=== PATIENT | male | born 1950 | race Hispanic/Latino ===

== ENCOUNTER 2016-12-03 02:07 | Observation (INO) | payer MEDICARE, OTHER ==
[2016-12-03 02:09] VITALS: BMI 34.9
--- NOTE | 2016-12-03 02:39 | ED PDOC ---
Arrival/HPI <Cedric Bourne - Last Filed: 12/03/16 03:34> - General Historian: Patient - History of Present Illness Time/Duration: 24 hours Symptom Onset: Sudden Symptom Course: Unchanged Quality: Stabbing <Merna Jiang - Last Filed: 12/03/16 03:42> - General Chief Complaint: Chest Pain Time Seen by Provider: 12/03/16 02:08 - History of Present Illness Narrative History of Present Illness (Text): 12/03/16 02:35 66 year old male with past medical history of CAD s/p stents, Diabetes, CKD presents for chest pain that began about 7 hours ago. Pain is located on right side of chest and radiates to right neck and RUQ. Pain is sharp in nature and constant. No association with position. Patient states that he took Aspirin 81 mg before coming to hospital. Patient also complaining of dry cough for past few days. Denies having any F/C, V/n, SOB. Patient also complaining of increased urinary frequency. (Merna Jiang) Past Medical History - Provider Review Nursing Documentation Reviewed: Yes - Infectious Disease Hx of Infectious Diseases: None - Tetanus Immunization Tetanus Immunization: Up to Date - Cardiac Hx Cardiac Disorders: Yes (CAD) Hx Circulatory Problems: Yes Hx Congestive Heart Failure: Yes Hx Hypertension: Yes Hx Pacemaker: No Hx Peripheral Vascular Disease: Yes Other/Comment: Stents x 6 in the heart. - Pulmonary Hx Respiratory Disorders: Yes Hx Chronic Obstructive Pulmonary Disease (COPD): Yes Hx Pneumonia: Yes - Neurological Hx Neurological Disorder: No - HEENT Hx HEENT Disorder: Yes (BLURRY VISION TO LEFT EYE) Hx Cataracts: Yes (Right eye) - Renal Hx Renal Disorder: Yes Hx Renal Failure: Yes - Endocrine/Metabolic Hx Endocrine Disorders: Yes Hx Diabetes Mellitus Type 2: Yes - Hematological/Oncological Hx Blood Disorders: Yes Other/Comment: hx mrsa - Integumentary Hx Dermatological Disorder: Yes (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.ALL TOES L.RIGHT 3 TOES.) Other/Comment: left foot ulcer on ball of foot and outer left calf open wound 3cm x 1cm open wound purulent dng noted(PT. STATES IT IS HEALED) - Musculoskeletal/Rheumatological Hx Falls: No - Gastrointestinal Hx Gastrointestinal Disorders: Yes Hx Gall Bladder Disease: Yes - Genitourinary/Gynecological Hx Genitourinary Disorders: No - Psychiatric Hx Psychophysiologic Disorder: Yes Hx Anxiety: Yes Hx Depression: Yes Hx Substance Use: No - Surgical History 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 Amputation of left foot toes. - Anesthesia Hx Anesthesia: Yes Hx Anesthesia Reactions: No Hx Malignant Hyperthermia: No - Suicidal Assessment Feels Threatened In Home Enviroment: No <Merna Jiang - Last Filed: 12/03/16 03:42> Family/Social History - Physician Review Nursing Documentation Reviewed: Yes Family/Social History: No Known Family HX. denies: CAD/MD Smoking Status: Never Smoked Hx Alcohol Use: No Hx Substance Use: No Hx Substance Use Treatment: No <Merna Jiang - Last Filed: 12/03/16 03:42> Allergies/Home Meds <Cedric Bourne - Last Filed: 12/03/16 03:34> <Merna Jiang - Last Filed: 12/03/16 03:42> Allergies/Adverse Reactions: Allergies Penicillins Allergy (Verified 12/03/16 02:09) RASH Home Medications: Home Meds Medication Instructions Recorded Confirmed MetFORMIN [glucoPHAGE] 500 mg PO BID 09/07/13 12/03/16 Sitagliptin Phosphate [Januvia] 100 mg PO DAILY 09/07/13 12/03/16 Metformin HCl [Fortamet] 500 mg PO BID 01/18/16 12/03/16 acetaZOLAMIDE [Acetazolamide] 500 mg PO BID 01/18/16 12/03/16 Review of Systems - Review of Systems Constitutional: Normal. absent: Fevers Eyes: Normal. absent: Vision Changes ENT: Normal. absent: Hearing Changes, Sore Throat Respiratory: Normal. absent: SOB, Cough, Wheezing Cardiovascular: Chest Pain. absent: Palpitations, Edema, Calf Pain Gastrointestinal: Abdominal Pain. absent: Constipation, Diarrhea, Nausea, Vomiting Genitourinary Male: Frequency. absent: Normal, Dysuria Musculoskeletal: Normal. absent: Arthralgias, Back Pain Skin: absent: Rash, Pruritis, Skin Lesions Neurological: Normal. absent: Headache, Dizziness Hemo/Lymphatic: Normal. absent: Adenopathy Psychiatric: Normal. absent: Anxiety, Depression <Merna Jiang - Last Filed: 12/03/16 03:42> Physical Exam Temperature: Afebrile Blood Pressure: Hypertensive Pulse: Regular Respiratory Rate: Normal Appearance: Positive for: Well-Appearing, Non-Toxic Mental Status: Positive for: Alert and Oriented X 3 - Systems Exam Head: Present: Atraumatic, Normocephalic Mouth: Present: Moist Mucous Membranes Neck: Present: Normal Range of Motion Respiratory/Chest: Present: Clear to Auscultation, Good Air Exchange. No: Respiratory Distress, Accessory Muscle Use, Wheezes, Rales, Rhonchi Cardiovascular: Present: Regular Rate and Rhythm, Normal S1, S2. No: Murmurs, Irregular Rhythm Abdomen: Present: Tenderness (RUQ), Normal Bowel Sounds. No: Distention, Peritoneal Signs, Guarding Lower Extremity: Present: Normal Inspection. No: Edema, CALF TENDERNESS Neurological: Present: GCS=15 Skin: Present: Warm, Dry, Normal Color. No: Rashes Psychiatric: Present: Alert, Oriented x 3, Normal Insight, Normal Concentration <Merna Jiang - Last Filed: 12/03/16 03:42> Vital Signs Temp Pulse Resp BP Pulse Ox 12/03/16 02:39 98.7 F 60 18 166/81 H 166 H Medical Decision Making - Lab Interpretations I have reviewed the lab results: Yes <Cedric Bourne - Last Filed: 12/03/16 03:34> - Lab Interpretations I have reviewed the lab results: Yes - EKG Interpretation Interpreted by ED Physician: Yes Type: 12 lead EKG <DeidreMerna - Last Filed: 12/03/16 03:42> ED Course and Treatment: In agreement with resident note, which includes further HPI details. Patient was seen and evaluated with resident, came up with plan and treatment together. 66 year old male, whose past medical history includes CAD s/p stents, Diabetes, CKD complains of chest pain that began about 7 hours ago. Patient states the pain to be on the right side radiating to the neck and RUQ. --EKG --Chest X-ray --Labs; Cardiac Enzymes --Urinalysis, Urine Culture 12/03/16 03:32 (Cedric Bourne) 12/03/16 02:41 66 year old male presents for chest pain r/o ACS vs. pleuritis vs. costochondritis Will check CBC, CMP, cardiac isoenzymes, urinalysis, urine culture, EKG and CXR 12/03/16 03:39 Dr. Baca is notified of patient. Accepts patient under her service and request pack worker, Dr. Slaughter's consult. (Merna Jiang) - Lab Interpretations Narrative Lab Interpretation (Text): 12/03/16 03:40 troponin-.03 (Merna Jiang) Lab Results: 12/03/16 02:26 12/03/16 02:26 Lab Results 12/03/16 02:26: Sodium 139, Potassium 4.3, Chloride 105, Carbon Dioxide 22, Anion Gap 16, BUN 38 H, Creatinine 2.3 H, Est GFR ( Amer) 35, Est GFR ( Non-Af Amer) 29, Random Glucose 222 H, Calcium 9.4, Total Bilirubin 0.4, AST 35 , ALT 27, Alkaline Phosphatase 96, Lactate Dehydrogenase 520, Total Creatine Kinase 136, Troponin I 0.03 D, Total Protein 7.3, Albumin 4.2, Globulin 3.2, Albumin/Globulin Ratio 1.3 12/03/16 02:26: WBC 8.0 D, RBC 3.60, Hgb 10.5 L, Hct 29.4 L, MCV 81.7, MCH 29.2 , MCHC 35.7, RDW 13.9, Plt Count 257, MPV 10.5 - RAD Interpretation Radiology Orders: 12/03/16 02:32 CHEST PORTABLE [RAD] Stat - EKG Interpretation EKG Interpretation (Text): 12/03/16 02:42 NSR HR [address] changes, normal axis normal interval 12/03/16 02:45 Unchanged from previous EKG (Merna Jiang) Disposition/Present on Arrival <Cedric Bourne - Last Filed: 12/03/16 03:34> - Present on Arrival Any Indicators Present on Arrival: Yes History of DVT/PE: No History of Uncontrolled Diabetes: Yes Urinary Catheter: No History of Decub. Ulcer: No History Surgical Site Infection Following: None - Disposition Have Diagnosis and Disposition been Completed?: Yes Disposition Time: 03:41 Patient Plan: Telemetry <Merna Jiang - Last Filed: 12/03/16 03:42> - Disposition Diagnosis: Chest pain Disposition: HOSPITALIZED Patient Problems: Current Active Problems Problem Status Onset Chest pain Acute Condition: STABLE Discharge Instructions (ExitCare): Chest Pain (ED) Forms: [employer] ([place])
[2016-12-03 02:46] LABS: ALB/GLOB RATIO 1.3 (1.1-1.8); ALBUMIN 4.2 g/dL (3.0-4.8); CALCIUM 9.4 mg/dL (8.4-10.5)
[2016-12-03 02:58] LABS: TROPONIN I 0.03 ng/mL
[2016-12-03 03:03] LABS: HEMOGLOBIN 10.5 gm/dL (14.0-18.0); MEAN CELL VOLUME 81.7 fL (80.0-105.0); MEAN CORPUSCULAR HEMOGLOBIN 29.2 pg (25.0-35.0); MEAN CORPUSCULAR HGB CONC 35.7 g/dl (31.0-37.0); MEAN PLATELET VOLUME 10.5 fl (7.0-11.0); RBC 3.6 10^6/uL (3.5-6.1); RED CELL DISTRIBUTION WIDTH 13.9 % (11.5-14.5)
[2016-12-03 05:05] LABS: URINE BILIRUBIN NEGATIVE (NEGATIVE); URINE BLOOD TRACE-LYSED (NEGATIVE); URINE GLUCOSE (UA) 250 mg/dL (NEGATIVE); URINE LEUKOCYTE ESTERASE NEGATIVE Leu/uL (NEGATIVE); URINE NITRATE NEGATIVE (NEGATIVE); URINE PROTEIN NEGATIVE mg/dL (<30 mg/dL); URINE UROBILINOGEN 0.2 E.U./dL (<1 E.U./dL)
[2016-12-03 05:06] LABS: URINE APPEARANCE CLEAR (CLEAR); URINE COLOR YELLOW (YELLOW)
[2016-12-03 05:13] LABS: URINE EPITHELIAL CELLS 0 - 2 /hpf (0-5); URINE RBC 0 - 2 /hpf (0-2); URINE WBC 0 - 2 /hpf (0-6)
--- NOTE | 2016-12-03 06:20 | CP.PCM.PN ---
Subjective - Date & Time of Evaluation Date of Evaluation: 12/03/16 Time of Evaluation: 06:16 - Subjective Subjective: Patient was seen at bedside because he complained of chest pain. Chest pain has been present for about two hours, 1/6, in mid sternal region, no radiation of pain but states that he also has pain in back of neck,denies sob, nausea, sweating ,palpitation. Received first NTG SL that I had ordered which has not made much difference in the pain. Medical records was reviewed. 66 year old male was admitted with chest pain. Has PMH of DM, CKD , CAD , coronary stents placementx6,chronic andemia, open angle glaucoma, PVD, non complaince, cholecystectomy, poor vision,right eye cataract , anxiety , depression. Objective - Vital Signs/Intake and Output Vital Signs (last 24 hours): Temp Pulse Resp BP Pulse Ox 98.7 F 54 L 16 149/65 98 12/03/16 02:39 12/03/16 04:47 12/03/16 04:47 12/03/16 04:47 12/03/16 04:47 - Labs Labs: Laboratory Last Values WBC 8.0 10^3/ul (4.5-11.0) D 12/03/16 02:26 RBC 3.60 10^6/uL (3.5-6.1) 12/03/16 02:26 Hgb 10.5 gm/dL (14.0-18.0) L 12/03/16 02:26 Hct 29.4 % (42.0-52.0) L 12/03/16 02:26 MCV 81.7 fL (80.0-105.0) 12/03/16 02:26 MCH 29.2 pg (25.0-35.0) 12/03/16 02:26 MCHC 35.7 g/dl (31.0-37.0) 12/03/16 02:26 RDW 13.9 % (11.5-14.5) 12/03/16 02:26 Plt Count 257 10^3/uL (120.0-450.0) 12/03/16 02:26 MPV 10.5 fl (7.0-11.0) 12/03/16 02:26 Sodium 139 mmol/L (132-148) 12/03/16 02:26 Potassium 4.3 mmol/L (3.6-5.0) 12/03/16 02:26 Chloride 105 mmol/L (98-107) 12/03/16 02:26 Carbon Dioxide 22 mmol/L (21-33) 12/03/16 02:26 Anion Gap 16 (10-20) 12/03/16 02:26 BUN 38 mg/dL (7-21) H 12/03/16 02:26 Creatinine 2.3 mg/dL (0.5-1.4) H 12/03/16 02:26 Est GFR ( Amer) 35 12/03/16 02:26 Est GFR (Non-Af Amer) 29 12/03/16 02:26 Random Glucose 222 mg/dL (70-110) H 12/03/16 02:26 Calcium 9.4 mg/dL (8.4-10.5) 12/03/16 02:26 Total Bilirubin 0.4 mg/dL (0.2-1.3) 12/03/16 02:26 AST 35 U/L (15-59) 12/03/16 02:26 ALT 27 U/L (7-56) 12/03/16 02:26 Alkaline Phosphatase 96 U/L (38-133) 12/03/16 02:26 Lactate Dehydrogenase 520 U/L (333-699) 12/03/16 02:26 Total Creatine Kinase 136 U/L (35-230) 12/03/16 02:26 Troponin I 0.03 ng/mL D 12/03/16 02:26 Total Protein 7.3 g/dL (5.8-8.3) 12/03/16 02:26 Albumin 4.2 g/dL (3.0-4.8) 12/03/16 02:26 Globulin 3.2 gm/dL 12/03/16 02:26 Albumin/Globulin Ratio 1.3 (1.1-1.8) 12/03/16 02:26 Urine Color Yellow (YELLOW) 12/03/16 04:44 Urine Appearance Clear (CLEAR) 12/03/16 04:44 Urine pH 6.0 (4.7-8.0) 12/03/16 04:44 Ur Specific [place] 1.010 (1.005-1.035) 12/03/16 04:44 Urine Protein Negative mg/dL (<30 mg/dL) 12/03/16 04:44 Urine Glucose (UA) 250 mg/dL (NEGATIVE) H 12/03/16 04:44 Urine Ketones Negative mg/dL (NEGATIVE) 12/03/16 04:44 Urine Blood Trace-lysed (NEGATIVE) H 12/03/16 04:44 Urine Nitrate Negative (NEGATIVE) 12/03/16 04:44 Urine Bilirubin Negative (NEGATIVE) 12/03/16 04:44 Urine Urobilinogen 0.2 E.U./dL (<1 E.U./dL) 12/03/16 04:44 Ur Leukocyte Esterase Negative Agusto/uL (NEGATIVE) 12/03/16 04:44 Urine RBC 0 - 2 /hpf (0-2) 12/03/16 04:44 Urine WBC 0 - 2 /hpf (0-6) 12/03/16 04:44 Ur Epithelial Cells 0 - 2 /hpf (0-5) 12/03/16 04:44 - Constitutional Appears: Well, No Acute Distress - Head Exam Head Exam: ATRAUMATIC, NORMAL INSPECTION, NORMOCEPHALIC - Eye Exam Additional comments: Right eye vision poor. - Neck Exam Neck Exam: Normal Inspection - Respiratory Exam Respiratory Exam: NORMAL BREATHING PATTERN - Cardiovascular Exam Cardiovascular Exam: Bradycardia, REGULAR RHYTHM, +S1 (Normal.), +S2 (Normal.). absent: JVD Additional comments: Has mild tenderness in sternal area upon palpation. - GI/Abdominal Exam GI & Abdominal Exam: absent: Distended, Tenderness - Rectal Exam Rectal Exam: Deferred - Exam Additional comments: Deferred. - Extremities Exam Extremities Exam: Normal Inspection - Back Exam Back Exam: NORMAL INSPECTION - Neurological Exam Neurological Exam: Alert, Awake, Oriented x3 - Psychiatric Exam Psychiatric exam: Normal Affect, Normal Mood - Skin Skin Exam: Normal Color Assessment and Plan - Assessment and Plan (Free Text) Assessment: Midsternal chest pain. R/O cardiac origin. Musculo-skeletal chest pain. Sinus bradycardia. CAD. Hx coronary stents placement. DM. HTN. CKD. Anemia. PVD. Anxiety . Depession. Plan: EKG STAT------------------> Sinus bradycardia,poor r wave progression no change from previous EKG except for rate which is slower. Troponin--------->pending. 0.4mg sublingual NTG q5m prn chest pain---> chest pain not helped after receiving 3 SL NGS's. Also patient felt dizzy and nauseous after receiving NTG's. Will give Naproxen 550 mg PO, Mylanta 30 CC PO and Protonix 40 mg IV . Will follow troponin.
[2016-12-03] MEDS ORDERED: Alum-Mag Hydrox-Simethicone Susp (30 mL) PO STA (06:25)
[2016-12-03] MEDS ORDERED: Naproxen 550 mg Tab PO STA (06:25)
--- NOTE | 2016-12-03 09:22 | RAD ---
HISTORY: chest pain COMPARISON: 01/18/2016 FINDINGS: LUNGS: No active pulmonary disease. PLEURA: No significant pleural effusion identified, no pneumothorax apparent. CARDIOVASCULAR: Normal. OSSEOUS STRUCTURES: No significant abnormalities. VISUALIZED UPPER ABDOMEN: Normal. OTHER FINDINGS: None. IMPRESSION: No active disease.
[2016-12-03 09:36] LABS: TROPONIN I 0.03 ng/mL
--- NOTE | 2016-12-03 10:24 | CON ---
DATE: 12/03/2016 The patient was seen by Dr. Azul and had angioplasty done by Dr. Azul, so we will turnover the case to him. I will sign off from now and cancel the consult for us, and put a consult for Dr. azul Thank you Ginger Rodriguez MD OLIVIA
[2016-12-03] MEDS: acetaZOLAMIDE 500 mg SR Cap PO SCH ×2 (11:04→18:15)
--- NOTE | 2016-12-03 12:29 | RAD ---
PROCEDURE: Cervical Spine Radiographs. HISTORY: Pain. COMPARISON: None. FINDINGS: BONES: Alignment maintained. No fracture. Dens Intact. DISC SPACES: Normal. SOFT TISSUES: There is ossification of the right-sided stylohyoid ligament. This can be symptomatic related to vascular compression. Clinical correlation is suggested. There is also ossification of the anterior longitudinal ligament OTHER FINDINGS: None. IMPRESSION: There is ossification of the right-sided stylohyoid ligament. This can be symptomatic related to vascular compression. Clinical correlation is suggested. There is also ossification of the anterior longitudinal ligament
[2016-12-03] MEDS: Insulin Reg-LOW-Coverage SC SCH ×3 (12:31→21:51)
[2016-12-03] MEDS: Metoprolol Succinate 25 mg XL Tab PO SCH ×2 (12:32→18:11)
--- NOTE | 2016-12-03 13:06 | CARD ---
APPROVED REPORT EKG Measurement Heart [id number] OR [id number] <Conclusion> Sinus bradycardia Septal infarct, age undetermined T wave abnormality, consider lateral ischemia Abnormal ECG
--- NOTE | 2016-12-03 13:07 | CARD ---
APPROVED REPORT EKG Measurement Heart [id number] ND [id number] <Conclusion> Normal sinus rhythm Left ventricular hypertrophy with repolarization abnormality Cannot rule out Septal infarct, age undetermined Consider lateral ischemia Abnormal ECG
--- NOTE | 2016-12-03 14:59 | CON ---
DATE: 12/03/2016 HISTORY The patient is a 66-year-old male who presents with atypical chest pain. His symptoms are not related to exertion, but are exacerbated by moving his neck PAST MEDICAL HISTORY: The patient's past medical history is notable for documented coronary disease and status post PTCA and stent in the past. He also suffers from diabetes mellitus as well as chronic renal insufficiency. His cardiac risk factors also includes diabetes mellitus, and hypertension. The patient is currently is free of symptoms at this time at rest. SOCIAL HISTORY He Does not smoke. REVIEW OF SYSTEMS: A 14 Point review of systems was reviewed in detail. No additional cardiac symptomatology is noted. PHYSICAL EXAMINATION: VITAL SIGNS: Blood pressure varies from 132 to 154 systolic, heart rate in the 50s. Normal sinus rhythm. NECK: Negative JVD. LUNGS: Without rales. HEART: Reveals S1 and S2. EXTREMITIES: Without edema. LABORATORY AND IMAGING DATA: EKG shows no acute changes. Hemoglobin is 10.5. Chemistries, troponin 0.03 x3. BUN and creatinine is 38 and 2.3. The glucose is 180. IMPRESSION 1. Atypical chest pain. 2. No evidence for acute coronary syndrome. 3. Persistent neck pain. 4. Documented percutaneous transluminal coronary angioplasty and coronary disease in the past. 5. Diabetes mellitus. 6. Renal insufficiency. 7. Hypertension. Given these findings, and myocardial infarction has been ruled out. There is no evidence for acute coronary syndrome. I have asked physical therapy to ambulate the patient. In addition, we will obtain x-rays of his neck to rule out an orthopedic cause of his neck and chest discomfort. Lamont Azul MD
[2016-12-03 16:33] LABS: TROPONIN I 0.03 ng/mL
--- NOTE | 2016-12-03 23:16 | CP.PCM.HP ---
History of Present Illness - History of Present Illness History of Present Illness: 12/03/16 66 year old male with past medical history of CAD s/p stents, Diabetes, CKD presents for chest pain that began about 7 hours ago. Pain is located on right side of chest and radiates to right neck and RUQ. Pain is sharp in nature and constant. No association with position. Patient states that he took Aspirin 81 mg before coming to hospital. Patient also complaining of dry cough for past few days. Denies having any F/C, V/n, SOB. Patient also complaining of increased urinary frequency. Present on Admission - Present on Admission Any Indicators Present on Admission: No Review of Systems - Review of Systems All systems: reviewed and no additional remarkable complaints except Review of Systems: chest pain , neckpain , - Constitutional Constitutional: As Per HPI - EENT Eyes: As Per HPI Ears: As Per HPI Nose/Mouth/Throat: As Per HPI - Cardiovascular Cardiovascular: As Per HPI - Respiratory Respiratory: As Per HPI - Gastrointestinal Gastrointestinal: As Per HPI - Genitourinary Genitourinary: As Per HPI - Musculoskeletal Musculoskeletal: As Per HPI - Integumentary Integumentary: As Per HPI - Neurological Neurological: As Per HPI - Psychiatric Psychiatric: As Per HPI - Endocrine Endocrine: As Per HPI - Hematologic/Lymphatic Hematologic: As Per HPI Past Patient History - Infectious Disease Hx of Infectious Diseases: None - Tetanus Immunizations Tetanus Immunization: Up to Date - Past Medical History & Family History Past Medical History?: Yes - Past Social History Smoking Status: Never Smoked - CARDIAC Hx Cardiac Disorders: Yes (CAD) Hx Circulatory Problems: Yes Hx Congestive Heart Failure: Yes Hx Hypertension: Yes Hx Pacemaker: No Hx Peripheral Vascular Disease: Yes Other/Comment: Stents x 6 in the heart. - PULMONARY Hx Respiratory Disorders: Yes Hx Chronic Obstructive Pulmonary Disease (COPD): Yes Hx Pneumonia: Yes - NEUROLOGICAL Hx Neurological Disorder: No - HEENT Hx HEENT Problems: Yes (BLURRY VISION TO LEFT EYE) Hx Cataracts: Yes (Right eye) - RENAL Hx Chronic Kidney Disease: Yes Hx Renal Failure: Yes - ENDOCRINE/METABOLIC Hx Endocrine Disorders: Yes Hx Diabetes Mellitus Type 2: Yes - HEMATOLOGICAL/ONCOLOGICAL Hx Blood Disorders: Yes Other/Comment: hx mrsa - INTEGUMENTARY Hx Dermatological Problems: Yes (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.ALL TOES L.RIGHT 3 TOES.) Other/Comment: left foot ulcer on ball of foot and outer left calf open wound 3cm x 1cm open wound purulent dng noted(PT. STATES IT IS HEALED) - MUSCULOSKELETAL/RHEUMATOLOGICAL Hx Falls: No - GASTROINTESTINAL Hx Gastrointestinal Disorders: Yes Hx Gall Bladder Disease: Yes - GENITOURINARY/GYNECOLOGICAL Hx Genitourinary Disorders: No - PSYCHIATRIC Hx Substance Use: No - SURGICAL HISTORY 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 Amputation of left foot toes. - ANESTHESIA Hx Anesthesia: Yes Hx Anesthesia Reactions: No Hx Malignant Hyperthermia: No Meds Allergies/Adverse Reactions: Allergies Allergy/AdvReac Type Severity Reaction Status Date / Time Penicillins Allergy RASH Verified 12/03/16 02:09 Physical Exam - Constitutional Appears: Well - Head Exam Head Exam: ATRAUMATIC, NORMAL INSPECTION, NORMOCEPHALIC - Eye Exam Eye Exam: EOMI, Normal appearance Additional comments: pt is legally blind b/l - ENT Exam ENT Exam: Mucous Membranes Moist, Normal Exam - Neck Exam Neck exam: Positive for: Normal Inspection - Respiratory Exam Respiratory Exam: Clear to Auscultation Bilateral, NORMAL BREATHING PATTERN - Cardiovascular Exam Cardiovascular Exam: REGULAR RHYTHM - GI/Abdominal Exam GI & Abdominal Exam: Normal Bowel Sounds, Soft. absent: Tenderness - Rectal Exam Rectal Exam: NORMAL INSPECTION - Exam Exam: Circumcision, NORMAL INSPECTION External exam: NORMAL EXTERNAL EXAM Speculum exam: NORMAL SPECULUM EXAM Bimanual exam: NORMAL BIMANUAL EXAM - Extremities Exam Extremities exam: Positive for: normal inspection - Back Exam Back exam: NORMAL INSPECTION - Neurological Exam Neurological exam: Alert, CN II-XII Intact, Normal Gait, Oriented x3, Reflexes Normal - Psychiatric Exam Psychiatric exam: Normal Affect, Normal Mood - Skin Skin Exam: Dry, Intact, Normal Color, Warm Results - Vital Signs Recent Vital Signs: Last Vital Signs Temp 97.8 F 12/03/16 18:00 Pulse 55 L 12/03/16 18:15 Resp 18 12/03/16 18:00 BP 130/74 12/03/16 18:15 Pulse Ox 98 12/03/16 04:47 - Labs Result Diagrams: 12/03/16 02:26 12/03/16 02:26 Labs: Laboratory Results - last 24 hr 12/03/16 12/03/16 12/03/16 04:44 07:41 08:28 POC Glucose (mg/dL) 180 H Lactate Dehydrogenase Total Creatine Kinase Troponin I 0.03 Urine Color Yellow Urine Appearance Clear Urine pH 6.0 Ur Specific [place] 1.010 Urine Protein Negative Urine Glucose (UA) 250 H Urine Ketones Negative Urine Blood Trace-lysed H Urine Nitrate Negative Urine Bilirubin Negative Urine Urobilinogen 0.2 Ur Leukocyte Esterase Negative Urine RBC 0 - 2 Urine WBC 0 - 2 Ur Epithelial Cells 0 - 2 12/03/16 12/03/16 12/03/16 09:11 12:27 15:50 POC Glucose (mg/dL) 152 H Lactate Dehydrogenase 450 461 Total Creatine Kinase 122 146 Troponin I 0.03 0.03 Urine Color Urine Appearance Urine pH Ur Specific [place] Urine Protein Urine Glucose (UA) Urine Ketones Urine Blood Urine Nitrate Urine Bilirubin Urine Urobilinogen Ur Leukocyte Esterase Urine RBC Urine WBC Ur Epithelial Cells 12/03/16 12/03/16 16:07 21:46 POC Glucose (mg/dL) 150 H 180 H Lactate Dehydrogenase Total Creatine Kinase Troponin I Urine Color Urine Appearance Urine pH Ur Specific [place] Urine Protein Urine Glucose (UA) Urine Ketones Urine Blood Urine Nitrate Urine Bilirubin Urine Urobilinogen Ur Leukocyte Esterase Urine RBC Urine WBC Ur Epithelial Cells Assessment & Plan - Assessment and Plan (Free Text) Assessment: Patient was seen at bedside because he complained of chest pain. Chest pain has been present for about two hours, 1/6, in mid sternal region, no radiation of pain but states that he also has pain in back of neck,denies sob, nausea, sweating ,palpitation. Received first NTG SL that I had ordered which has not made much difference in the pain. Medical records was reviewed. 66 year old male was admitted with chest pain. Has PMH of DM, CKD , CAD , coronary stents placementx6,chronic andemia, open angle glaucoma, PVD, non complaince, cholecystectomy, poor vision,right eye cataract , anxiety , depression. seen by dr ashlee parkinson , cardio as per cardio , chest pain looking like musculo sketal , pt went for neck Xray . noted by me , will give flexril .,need neuro surgery consult
--- NOTE | 2016-12-04 00:15 | CP.PCM.PN ---
Subjective - Date & Time of Evaluation Date of Evaluation: 12/04/16 Time of Evaluation: 00:13 - Subjective Subjective: Patient was seen for headache. Headache is mild, frontal , not radiating , not associated with dizziness, nausea, paraesthesia, weakness. Has PMH of DM, CKD , CAD , coronary stents placementx6,chronic andemia, open angle glaucoma, PVD, non complaince, cholecystectomy, poor vision,right eye cataract , anxiety , depression. Objective - Vital Signs/Intake and Output Vital Signs (last 24 hours): Temp Pulse Resp BP Pulse Ox 97.8 F 55 L 18 130/74 98 12/03/16 18:00 12/03/16 18:15 12/03/16 18:00 12/03/16 18:15 12/03/16 04:47 - Medications Medications: Current Medications Acetazolamide (Diamox Sequels 500 Mg Sr Cap) 500 mg PO BID [facility] Last Admin: 12/03/16 18:15 Dose: 500 mg Amlodipine Besylate (Norvasc) 10 mg PO DAILY [facility] Last Admin: 12/03/16 11:03 Dose: 10 mg Aspirin (Aspirin Chewable) 81 mg PO DAILY [facility] Last Admin: 12/03/16 11:04 Dose: 81 mg Cyclobenzaprine HCl (Flexeril) 10 mg PO TID [facility] Hydralazine HCl (Apresoline) 10 mg PO BID [facility] Last Admin: 12/03/16 18:15 Dose: 10 mg Insulin Human Regular (Humulin R Low) 0 units SC ACHS [facility] PRN Reason: Protocol Last Admin: 12/03/16 21:51 Dose: Not Given Metoprolol Succinate (Toprol Xl) 25 mg PO BID [facility] Last Admin: 12/03/16 18:11 Dose: Not Given Sitagliptin Phosphate (Januvia) 100 mg PO DAILY [facility] Last Admin: 12/03/16 10:53 Dose: Not Given - Constitutional Appears: Well, No Acute Distress - Head Exam Head Exam: ATRAUMATIC, NORMAL INSPECTION, NORMOCEPHALIC - Eye Exam Eye Exam: Normal appearance - ENT Exam ENT Exam: Normal External Ear Exam - Neck Exam Neck Exam: Normal Inspection - Respiratory Exam Respiratory Exam: NORMAL BREATHING PATTERN - Cardiovascular Exam Cardiovascular Exam: absent: JVD - GI/Abdominal Exam GI & Abdominal Exam: absent: Distended - Rectal Exam Rectal Exam: Deferred - Exam Additional comments: Deferred. - Extremities Exam Extremities Exam: Normal Inspection - Back Exam Back Exam: NORMAL INSPECTION - Neurological Exam Neurological Exam: Alert, Oriented x3 - Psychiatric Exam Psychiatric exam: Normal Affect, Normal Mood - Skin Skin Exam: Normal Color Assessment and Plan - Assessment and Plan (Free Text) Assessment: Headache. DM. CKD. CAD. Coronary stent placement. Chronic anemia. PVD. Glaucoma. Anxiety. Depression. Plan: Tylenol 650 mg PO stat. Continue present management.
[2016-12-04] MEDS: Insulin Reg-LOW-Coverage SC SCH ×4 (08:12→21:33)
[2016-12-04] MEDS: acetaZOLAMIDE 500 mg SR Cap PO SCH ×2 (10:20→18:35)
--- NOTE | 2016-12-04 10:54 | PN ---
DATE: 12/04/2016 SUBJECTIVE: The patient's chest pain is better. He is complaining predominantly of neck pain. Blood pressure is 130/63, heart rate is in the 40s sinus bradycardia with a history of bradycardia in the 30s during the nighttime. PHYSICAL EXAMINATION: VITAL SIGNS: Blood pressure 130/63, heart rate is noted. LUNGS: Clear to auscultation. HEART: Reveals S1, S2. EXTREMITIES: Without edema. LABORATORY DATA: His glucose is 194. Hemoglobin was not measured today. Troponin is 0.03. IMPRESSION: 1. Atypical chest pain which is likely due to his neck pain. 2. Cervical spine x-ray reveals ossification of ligament. There is no evidence for acute coronary syndrome. 3. Diabetes mellitus. 4. History of coronary artery disease. 5. Hypertension. 6. Bradycardia. Given these findings, we will discontinue his Toprol. We will discontinue telemetry today. No further cardiac workup is indicated at this time. We will arrange for an outpatient stress test which can be done next week after Toprol leaves his system. Lamont Azul MD
--- NOTE | 2016-12-04 12:29 | CP.PCM.PN ---
Subjective - Date & Time of Evaluation Date of Evaluation: 12/04/16 Time of Evaluation: 12:28 - Subjective Subjective: anterior spinal calcifications are not normally treated as they do not cause neurologic compramise will check MRI and make suggestions if apprpriate at that time Objective - Vital Signs/Intake and Output Vital Signs (last 24 hours): Temp Pulse Resp BP Pulse Ox 97.6 F 49 L 20 148/73 97 12/04/16 05:45 12/04/16 10:18 12/04/16 05:45 12/04/16 10:21 12/04/16 05:45 Intake and Output: 12/04/16 12/04/16 06:59 18:59 Intake Total 220 Output Total 800 Balance -580 - Medications Medications: Current Medications Acetazolamide (Diamox Sequels 500 Mg Sr Cap) 500 mg PO BID [facility] Last Admin: 12/04/16 10:20 Dose: 500 mg Amlodipine Besylate (Norvasc) 10 mg PO DAILY [facility] Last Admin: 12/04/16 10:21 Dose: 10 mg Aspirin (Aspirin Chewable) 81 mg PO DAILY [facility] Last Admin: 12/04/16 10:20 Dose: 81 mg Cyclobenzaprine HCl (Flexeril) 10 mg PO TID [facility] Last Admin: 12/04/16 10:20 Dose: 10 mg Hydralazine HCl (Apresoline) 10 mg PO BID [facility] Last Admin: 12/04/16 10:18 Dose: Not Given Insulin Human Regular (Humulin R Low) 0 units SC ACHS [facility] PRN Reason: Protocol Last Admin: 12/04/16 12:09 Dose: 1 units Sitagliptin Phosphate (Januvia) 100 mg PO DAILY [facility] Last Admin: 12/04/16 10:21 Dose: Not Given
[2016-12-04] MEDS: POLYETHYLENE GLYCOL 3350 17 GM/Dose PACKET PO PRN (18:31)
--- NOTE | 2016-12-05 00:48 | PN ---
DATE: SUBJECTIVE: The patient was examined on the bedside on the 5th floor, looks not in distress, but daytime, he has headaches, doctor decides to see the patient for headache. He has constant neck pain. Neurosurgery consult called with Didier Rice. According to him, he needs stat MRI *------* and the patient is not cooperative for MRI. Dose of Ativan return. We will follow up with the MRI. PHYSICAL EXAMINATION: VITAL SIGNS: Temperature 98.0, pulse 55, blood pressure 145/70, and respiratory rate 20. HEENT: Head: Normocephalic atraumatic. Eyes; PERRLA. Extraocular muscles intact. Conjunctivae clear. Nose is patent. Mucous membranes moist. NECK: Supple. No carotid bruit. No JVD. No thyromegaly. CHEST: Bilaterally symmetrical. HEART: S1 and S2 positive. LUNGS: Clear to auscultation. ABDOMEN: Soft. Bowel sounds present. No organomegaly. EXTREMITIES: No edema. No cyanosis. NEUROLOGIC: The patient is awake and alert. Moving all 4 extremities. No focal deficit. MEDICATIONS: Hydralazine, aspirin, Diamox, Flexeril, insulin, Januvia, MiraLAX, and amlodipine. LABORATORY DATA: White blood cell 8.0, hemoglobin 10.5, hematocrit 37.4, and platelets 257. Glucose 171, 195, 180. ASSESSMENT AND PLAN: Mr. Maco Lara is 66 years old male with multiple medical problems, has intractable neck pain, seen by Dr. Didier Rice. According to him, spinal calcifications are not normally treated as they do not cause the neurological compromise. We will check MRI and make suggestion, if appropriate at that time as per neurosurgeon. Seen by the biological engineer, Dr. Lamont Azul. According to him, the patient has atypical chest pain, which is likely due to neck pain. Cervical spine x-ray has ossification of ligament. There is no evidence of acute coronary syndrome,diabetes mellitus, history of coronary artery disease, hypertension, and bradycardia. Dr. Lamont Azul discontinued the Toprol. Discontinued the telemetry. History of hypercholesterolemia. Pain management and muscle relaxant, history of a chronic kidney disease, coronary artery stent placement x6, glaucoma, peripheral vascular disease, and noncompliance, history of cholecystectomy, poor vision, anxiety, depression. Continue present treatment, GI and DVT prophylaxis. Repeat labs. We will follow. Cindy Baca MD MTDKarmen
[2016-12-05] MEDS: Insulin Reg-LOW-Coverage SC SCH ×4 (09:15→22:09)
[2016-12-05] MEDS: Naproxen 550 mg Tab PO SCH ×2 (09:16→17:43)
[2016-12-05] MEDS: acetaZOLAMIDE 500 mg SR Cap PO SCH ×2 (09:16→17:40)
--- NOTE | 2016-12-05 11:14 | MRI ---
PROCEDURE: MR CERVICAL SPINE WITHOUT CONTRAST HISTORY: neck pain COMPARISON: None available. TECHNIQUE: Multiecho multiplanar sequences were performed through the cervical spine without the use of intravenous contrast. FINDINGS: Normal lordotic curvature. Craniocervical junction unremarkable. Vertebral body heights preserved. No marrow signal abnormality. Normal cervical cord. No paraspinal abnormality. C2-C3: Mild disc bulge without stenosis C3-C4: Disc bulge with right-sided foraminal stenosis C4-C5: Disc bulge with mild right-sided foraminal stenosis C5-C6: Disc bulge an osteophyte complex with severe bilateral foraminal stenosis and mild to moderate central stenosis C6-C7: Disc bulge in degeneration with moderate bilateral foraminal stenosis. C7-T1: Disc bulge with severe bilateral foraminal stenosis OTHER FINDINGS: None. IMPRESSION: Multilevel disc degeneration and foraminal stenosis. Mild to moderate central stenosis at C5-6. See comments
--- NOTE | 2016-12-05 18:02 | CP.PCM.PN ---
Subjective - Date & Time of Evaluation Date of Evaluation: 12/05/16 Time of Evaluation: 18:00 - Subjective Subjective: reviewed MRI mutiple bulges and areas of foraminal stenosis, with C5/6 being worst Would recomment conservative tx for the neck pain particularly a coarse of PT will follow as outpt in office Objective - Vital Signs/Intake and Output Vital Signs (last 24 hours): Temp Pulse Resp BP Pulse Ox 97.5 F L 55 L 19 116/56 L 97 12/05/16 16:30 12/05/16 16:30 12/05/16 16:30 12/05/16 16:30 12/05/16 16:30 Intake and Output: 12/05/16 12/05/16 06:59 18:59 Intake Total 360 380 Balance 360 380 - Medications Medications: Current Medications Acetazolamide (Diamox Sequels 500 Mg Sr Cap) 500 mg PO BID [facility] Last Admin: 12/05/16 17:40 Dose: 500 mg Amlodipine Besylate (Norvasc) 10 mg PO DAILY [facility] Last Admin: 12/05/16 09:28 Dose: 10 mg Aspirin (Aspirin Chewable) 81 mg PO DAILY [facility] Last Admin: 12/05/16 09:16 Dose: 81 mg Cyclobenzaprine HCl (Flexeril) 10 mg PO TID [facility] Last Admin: 12/05/16 14:09 Dose: 10 mg Hydralazine HCl (Apresoline) 10 mg PO BID [facility] Last Admin: 12/05/16 17:32 Dose: Not Given Insulin Human Regular (Humulin R Low) 0 units SC ACHS [facility] PRN Reason: Protocol Last Admin: 12/05/16 17:32 Dose: 1 units Naproxen (Anaprox Ds) 550 mg PO BID [facility] Last Admin: 12/05/16 17:43 Dose: 550 mg Polyethylene Glycol (Miralax) 17 gm PO DAILY [facility] PRN Reason: Constipation Last Admin: 12/04/16 18:31 Dose: 17 gm Sitagliptin Phosphate (Januvia) 50 mg PO DAILY [facility] Last Admin: 12/05/16 10:07 Dose: Not Given
--- NOTE | 2016-12-05 20:22 | CON ---
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 CA had been ruled out. The patient reports that he had several falls over the last few weeks and was also complaining of neck pain. Neck pain is localized to the neck, radiating to the occiput and down between the trapezius, does not go into his shoulders. He says he has some low-grade tingling in his arms. This has been there for several weeks. Denies numbness in his legs. He has an x-ray of his neck showing significant anterior osteophytic formation from C2 down as far as the x-ray would show. There are very large anterior osteophytes. There appear all connected and his entire anterior aspect of the vertebral bodies appeared to be singularly fused. The posterior vertebral line looks to be normal with no obvious osteophytes on the film. I have reviewed his medical record for review of systems, family history, social history, medications, and allergies with him. PHYSICAL EXAMINATION: At this point, his exam finds that he has some mobility of his neck that is reduced in all directions. He has some tenderness over the posterior cervical musculature. He has excellent strength in all muscle groups, upper and lower. His left ankle appears to be fused and his toes are amputated. His sensory exam is completely normal to pin and touch throughout. His reflexes are all 1/4. There is no Randle's, no clonus, and no Babinski on the right. I did not ambulate the patient. ASSESSMENT AND PLAN: At this point, he needs an MRI to determine whether or not there is any neuro compression. The numbness in his arms may be related to his diabetes. It is unclear exactly how long and how severe this subjective numbness is. He has no sensory deficit to the hand. I will review the MRI after it is done; however, unless there is some significant evidence of cord compression, my first line of treatment would be conservative with physical therapy to his neck, either at subacute facility or at home and I will then follow him in the office. If indeed he has some severe evidence of cord compression or disk disease, I will then re-evaluate him while in the hospital. I will follow up his MRI after it is done. If there are any questions, please do not hesitate contact me. Didier Rice MD
[2016-12-06 07:20] LABS: % IRON SATURATION 33 % (20-55); IRON 88 ug/dL (45-180); TOTAL IRON BINDING CAPACITY 265 ug/dL (261-462)
--- NOTE | 2016-12-06 07:50 | PN ---
DATE: 12/05/2016 SUBJECTIVE: The patient was seen and examined on 12/05/2016. Neck pain is getting better. No nausea, vomiting or diarrhea. No hematuria or hematochezia. No headache and dizziness. No chest pain or palpitation. PHYSICAL EXAMINATION: VITAL SIGNS: Temperature 97.5, pulse 55, blood pressure 116/56 and respiratory rate 18. HEENT: Head is normocephalic and atraumatic. Eyes; PERRLA. Extraocular muscles intact. Conjunctivae clear. Nose is patent. NECK: Supple. No carotid bruit. No JVD. No thyromegaly. CHEST: Bilaterally symmetrical. HEART: S1 and S2 positive. LUNGS: Clear to auscultation. ABDOMEN: Soft. Bowel sounds present. No organomegaly. EXTREMITIES: No edema. No cyanosis. NEUROLOGIC: The patient is awake and alert. Moving all 4 extremities. No focal deficit. MEDICATIONS: Naproxen, hydralazine, aspirin, acetazolamide, Flexeril, insulin, Januvia, MiraLax and Norvasc. LABORATORY DATA: We do not have recent labs today, but I reviewed old labs. Sugar is 113, 184 and 209. ASSESSMENT AND PLAN: Mr. Suresh Dewey is a 66-year-old male with severe neck pain went for MRI, seen by neurosurgeon, Dr. Didier Rice. MRI shows multiple bulges and areas of foraminal stenosis with C5/C6 being worst and neurosurgeon recommended conservative treatment for the neck pain. Particularly course of physical therapy will follow as an outpatient in the office by the neurosurgeon. Seen by Dr. Lamont Azul, director hris. The patient's atypical chest pain, which is likely due to neck pain, diabetes mellitus uncontrolled, history of coronary artery disease status post cardiac stenting, hypertension, bradycardia, renal insufficiency stable, need physical therapy. We will try to do TCU, gastrointestinal/deep venous thrombosis prophylaxis, repeat labs. We will followup. Cindy Baca MD
[2016-12-06] MEDS: Insulin Reg-LOW-Coverage SC SCH (08:51)
[2016-12-06] MEDS: acetaZOLAMIDE 500 mg SR Cap PO SCH (09:16)
[2016-12-06] MEDS: POLYETHYLENE GLYCOL 3350 17 GM/Dose PACKET PO PRN (09:18)
[2016-12-06 09:22] VITALS: BP 120/77
[2016-12-06 09:58] VITALS: PULSE 63; RESP 20; TEMP 97.9; O2SAT 98
--- NOTE | 2016-12-06 11:23 | PN ---
DATE: 12/06/2016 SUBJECTIVE: The patient's main complaint is his neck pain. PHYSICAL EXAMINATION VITAL SIGNS: Blood pressure is 120/70, the heart rate is in the 60s. NECK: Negative JVD. LUNGS: Without rales. HEART: S1, S2. EXTREMITIES: Without edema. LABORATORY DATA: Glucose is 159. IMPRESSION 1. Cervical disc disease. 2. Atypical chest pain without evidence for acute coronary syndrome. 3. History of coronary artery disease. 4. Diabetes mellitus. 5. Hypertension. Given these findings, his bradycardia is stable, off Toprol. The patient is for transfer to TCU with continued follow up with neuro surgery. Lamont Azul MD
[2016-12-06 13:12] LABS: FOLATE 17.1 ng/mL
== END 2016-12-06 18:23 | disposition home or self-care (01) ==
LOC: ED 02:07 → ERH 03:35 → 2RSO 05:06 → 5RNO 12-04 17:46 → OBSVTOIN 12-04 21:01 → INTOOBSV 12-04 21:01
PROVIDERS: ADMIT Internal Medicine; ATTEND Internal Medicine
DX: M50.80 Other cervical disc disorders, unspecified cervical region (principal); M48.02 Spinal stenosis, cervical region; R07.89 Other chest pain; I13.0 Hypertensive heart and chronic kidney disease with heart failure and stage 1 through stage 4 chronic kidney disease, or unspecified chronic kidney disease; N18.9 Chronic kidney disease, unspecified; I50.9 Heart failure, unspecified; I25.10 Atherosclerotic heart disease of native coronary artery without angina pectoris; E11.22 Type 2 diabetes mellitus with diabetic chronic kidney disease; E11.39 Type 2 diabetes mellitus with other diabetic ophthalmic complication; H40.10X0 Unspecified open-angle glaucoma, stage unspecified; H26.9 Unspecified cataract; H54.7 Unspecified visual loss; E11.51 Type 2 diabetes mellitus with diabetic peripheral angiopathy without gangrene; E11.621 Type 2 diabetes mellitus with foot ulcer; L97.529 Non-pressure chronic ulcer of other part of left foot with unspecified severity; E11.65 Type 2 diabetes mellitus with hyperglycemia; F41.9 Anxiety disorder, unspecified; F32.9 Major depressive disorder, single episode, unspecified; D64.9 Anemia, unspecified; R00.1 Bradycardia, unspecified; E78.00 Pure hypercholesterolemia, unspecified; Z95.5 Presence of coronary angioplasty implant and graft; Z79.84 Long term (current) use of oral hypoglycemic drugs; Z79.82 Long term (current) use of aspirin; Z89.422 Acquired absence of other left toe(s); Z91.19 Patient's noncompliance with other medical treatment and regimen
CPT/HCPCS: 36415; 71010; 72050; 72141; 80053; 80061; 81001; 82550; 82607; 82746; 82948; 83036; 83540; 83550; 83615; 84484; 85027; 87086; 93005; 97116; 97162; 99285; C9113; G0378; G8978; G8979; G8980; J2060

== ENCOUNTER 2016-12-14 10:01 | Inpatient (IN) | payer MEDICARE, OTHER ==
[2016-12-14 10:01] VITALS: BMI 34.9
[2016-12-14] MEDS ORDERED: Sodium Chloride 0.9% 500 ML IV STA (10:22)
--- NOTE | 2016-12-14 10:28 | ED PDOC ---
Arrival/HPI - General Chief Complaint: Trauma Time Seen by Provider: 12/14/16 10:02 Historian: Patient - History of Present Illness Narrative History of Present Illness (Text): 12/14/16 10:24 Maco Prince is a 66 year old male, with a history of hypertension and diabetes, presents to the emergency department s/p unwitnessed fall. Patient was found on the floor in kitchen by the home health aide today morning. Patient is poor historian and is unsure how he fell or how long he was on the floor. Patient unsure if he lost consciousness. In the emergency department, his blood sugar was noted to be elevated. Does not endorse any other complaints. Denies fever, chills, headache, chest pain, difficulty breathing, back pain, nausea, vomiting, diarrhea, urinary symptoms, or any other complaints at this time. no cough 12/14/16 17:08 Time/Duration: 1-3 hours Symptom Onset: Sudden Context: Home Past Medical History - Travel History Have you recently traveled outside [place] w/in the past 3 mons?: Yes - Infectious Disease Hx of Infectious Diseases: None - Tetanus Immunization Tetanus Immunization: Up to Date - Cardiac Hx Cardiac Disorders: Yes (CAD) Hx Circulatory Problems: Yes Hx Congestive Heart Failure: Yes Hx Hypertension: Yes Hx Pacemaker: No Hx Peripheral Vascular Disease: Yes Other/Comment: Stents x 6 in the heart. - Pulmonary Hx Respiratory Disorders: Yes Hx Chronic Obstructive Pulmonary Disease (COPD): Yes Hx Pneumonia: Yes - Neurological Hx Neurological Disorder: No - HEENT Hx HEENT Disorder: Yes (BLURRY VISION TO LEFT EYE) Hx Cataracts: Yes (Right eye) - Renal Hx Renal Disorder: Yes Hx Renal Failure: Yes - Endocrine/Metabolic Hx Endocrine Disorders: Yes Hx Diabetes Mellitus Type 2: Yes - Hematological/Oncological Hx Blood Disorders: Yes Other/Comment: hx mrsa - Integumentary Hx Dermatological Disorder: Yes (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.ALL TOES L.RIGHT 3 TOES.) - Musculoskeletal/Rheumatological Hx Musculoskeletal Disorders: No Hx Falls: No - Gastrointestinal Hx Gastrointestinal Disorders: Yes Hx Gall Bladder Disease: Yes - Genitourinary/Gynecological Hx Genitourinary Disorders: No - Psychiatric Hx Psychophysiologic Disorder: Yes Hx Anxiety: Yes Hx Depression: Yes Hx Substance Use: No - Surgical History 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 Amputation of left foot toes. - Anesthesia Hx Anesthesia: Yes Hx Anesthesia Reactions: No Hx Malignant Hyperthermia: No - Suicidal Assessment Feels Threatened In Home Enviroment: No Family/Social History - Physician Review Nursing Documentation Reviewed: Yes Family/Social History: No Known Family HX Smoking Status: Never Smoked Hx Alcohol Use: No Hx Substance Use: No Hx Substance Use Treatment: No Allergies/Home Meds Allergies/Adverse Reactions: Allergies Penicillins Allergy (Verified 12/14/16 13:12) RASH Home Medications: Home Meds Medication Instructions Recorded Confirmed Aspirin [Ecotrin] 81 mg PO DAILY 12/14/16 12/14/16 Atorvastatin [Lipitor] 40 mg PO DAILY 12/14/16 12/14/16 Cholecalciferol [Vitamin D 1000 IU] 1 tab PO WED 12/14/16 12/14/16 Glipizide [Glipizide Xl] 5 mg PO DAILY 12/14/16 12/14/16 Mv,Min10/Folic Acid/D3/Ala/Lut 1 tab PO DAILY 12/14/16 12/14/16 [Strovite One Caplet] SITagliptin [Januvia] 100 mg PO DAILY 12/14/16 12/14/16 amLODIPine [Norvasc] 10 mg PO DAILY 12/14/16 12/14/16 Review of Systems - Physician Review All systems were reviewed & negative as marked: Yes - Review of Systems Constitutional: Normal. absent: Fatigue, Fevers Respiratory: Normal. absent: SOB, Cough, Sputum Cardiovascular: Syncope (? syncope and fall ). absent: Chest Pain, Palpitations Gastrointestinal: Normal. absent: Abdominal Pain, Diarrhea, Nausea, Vomiting Neurological: Normal. absent: Headache, Dizziness, Focal Weakness Physical Exam Vital Signs Reviewed: Yes Vital Signs Temp Pulse Resp BP Pulse Ox 12/14/16 12:07 92 H 16 170/86 H 100 12/14/16 10:55 75 16 141/66 100 12/14/16 10:23 99.7 F H 12/14/16 10:18 75 17 165/109 H 100 Temperature: Afebrile Blood Pressure: Hypertensive Pulse: Regular Respiratory Rate: Normal Appearance: Positive for: Non-Toxic, Other (morbidly obese ) Pain Distress: None Mental Status: Positive for: Alert and Oriented X 3 Finger Stick Blood Glucose: 362 - Systems Exam Head: Present: Atraumatic, Normocephalic Pupils: Present: PERRL Conjunctiva: Present: Normal Mouth: Present: Moist Mucous Membranes Respiratory/Chest: Present: Clear to Auscultation, Good Air Exchange. No: Respiratory Distress, Accessory Muscle Use Cardiovascular: Present: Regular Rate and Rhythm, Normal S1, S2. No: Murmurs Abdomen: Present: Normal Bowel Sounds. No: Tenderness, Distention, Peritoneal Signs Upper Extremity: Present: Normal Inspection. No: Cyanosis, Edema Lower Extremity: Present: Normal Inspection. No: Edema Neurological: Present: GCS=15, CN II-XII Intact, Speech Normal, Motor Func Grossly Intact, Normal Sensory Function Skin: Present: Warm, Dry, Normal Color. No: Rashes Psychiatric: Present: Alert, Oriented x 3, Normal Insight, Normal Concentration Medical Decision Making ED Course and Treatment: 12/14/16 10:30 Impression: A 66 year old male who presents to the emergency department for evaluation following an unwitnessed fall and ?syncope. Currently is patient awake, alert, oriented X3 and does not endorse any complaints. Plan: -- CT Head -- EKG -- Labs, cardiac enzymes -- Chest X-ray -- IV Fluids -- Urinalysis -- Reassess and disposition Progress Notes: 12/14/16 10:38 EKG interpreted by me: NSR @ 79 bpm. Nonspecific T wave changes. No interval changes. 12/14/16 11:10 CT Head reviewed: IMPRESSION: Probable hemorrhagic infarct right posterior frontal parietal lobe. Nonhemorrhagic infarct of the right anterior frontal lobe. There is no significant mass effect and no midline shift 12/14/16 11:26 Case discussed with , neurosurgeon, who recommends that surgical intervention is not necessary at this time. Foster Care Worker will evaluate patient for admission to ICU. 12/14/16 11:44 Patient evaluated by scientific manager. Accepts to ICU under Dr. Baca's service for DKA and intracranial bleed. - Critical Care Critical Care Minutes: 45 minutes - Lab Interpretations Lab Results: 12/14/16 10:36 12/14/16 10:36 Lab Results 12/14/16 10:36: Sodium 142, Chloride 110 H, Potassium 4.7, Carbon Dioxide 12 L, Anion Gap 25 H, BUN 42 H, Creatinine 2.7 H, Est GFR ( Amer) 29, Est GFR ( Non-Af Amer) 24, Random Glucose 379 H* D, Calcium 9.8, Magnesium 1.9, Total Bilirubin 0.7, AST 37, ALT 29, Alkaline Phosphatase 124, Lactate Dehydrogenase 667, Total Creatine Kinase 333 H, CK-MB (CK-2) 5.5 H, CK-MB (CK-2) % 1.7 L, Troponin I 0.36 H* D, Total Protein 8.1, Albumin 4.8, Globulin 3.3, Albumin/ Globulin Ratio 1.5 12/14/16 10:36: PT 11.4, INR 1.06, APTT 23.1 L 12/14/16 10:36: WBC 15.4 H D, RBC 4.05, Hgb 11.8 L, Hct 32.7 L, MCV 80.7, MCH 29.1, MCHC 36.1, RDW 14.6 H, Plt Count 307, MPV 10.7, Gran % 91.1 H, Lymph % ( Auto) 4.8 L, Stokes % (Auto) 4.0, Eos % (Auto) 0.0 L, Baso % (Auto) 0.1, Gran # 14.03 H, Lymph # 0.7 L, Stokes # 0.6, Eos # 0.0, Baso # 0.01, Neutrophils % ( Manual) 90 H, Lymphocytes % (Manual) 5 L, Monocytes % (Manual) 5, Platelet Evaluation Normal, Hypochromasia Slight, Anisocytosis (manual) 1+, Microcytosis (manual) 1+ 12/14/16 10:36: pO2 53, VBG pH 7.23 L, VBG pCO2 33.0 L, VBG HCO3 13.8 L, VBG Total CO2 14.8 L, VBG O2 Sat (Calc) 92.7 H, VBG Base Excess -12.6 L, VBG Potassium 4.9, Sodium 140.0, Chloride 107.0, Glucose 393 H, Lactate 2.0, FiO2 21.0, Venous Blood Potassium 4.9 12/14/16 10:11: POC Glucose (mg/dL) 362 H I have reviewed the lab results: Yes - RAD Interpretation Radiology Orders: 12/14/16 10:21 CHEST PORTABLE [RAD] Stat 12/14/16 10:22 HEAD W/O CONTRAST [CT] Stat PELVIS ONE VIEW [RAD] Stat Crotch Piece Baster: Radiologist - EKG Interpretation Interpreted by ED Physician: Yes Type: 12 lead EKG - Medication Orders Current Medication Orders: Acetaminophen (Tylenol 325mg Tab) 650 mg PO Q6H PRN PRN Reason: Fever >100.4 F Last Admin: 12/14/16 15:33 Dose: 650 mg Insulin Human Regular 100 (units/ Sodium Chloride) 100 mls @ 10 mls/hr IV .Q10H PRN; Protocol; 10 UNITS/HR PRN Reason: TITRATE PER MD ORDER Last Titration: 12/14/16 16:53 Dose: 2 units/hr, 2 mls/hr Sodium Chloride (Sodium Chloride 0.9%) 1,000 mls @ 100 mls/hr IV .Q10H SEVERIANO Aztreonam (Azactam 1 Gm) 100 mls @ 100 mls/hr IVPB Q8 SEVERIANO PRN Reason: Protocol Stop: 12/14/16 22:59 Last Admin: 12/14/16 15:04 Dose: 100 mls/hr Levetiracetam 500 mg/ Sodium (Chloride) 105 mls @ 460 mls/hr IV Q12 SEVERINAO Last Admin: 12/14/16 15:26 Dose: 460 mls/hr Vancomycin HCl (Vancomycin 1gm) 1 gm in 250 mls @ 167 mls/hr IVPB DAILY SEVERIANO PRN Reason: Protocol Last Admin: 12/14/16 16:05 Dose: 167 mls/hr Nicardipine HCl (Cardene Iv Premix) 20 mg in 200 mls @ 50 mls/hr IV .Q4H PRN; Protocol; 5 MG/HR PRN Reason: TITRATE PER MD ORDER Pantoprazole Sodium (Protonix Ec Tab) 40 mg PO 0600 SEVERIANO Discontinued Medications Sodium Chloride (Sodium Chloride 0.9%) 500 mls @ 999 mls/hr IV .Q31M STA Stop: 12/14/16 10:52 Last Admin: 12/14/16 10:54 Dose: 999 mls/hr Ciprofloxacin (Cipro 400mg/200ml Dsw) 400 mg in 200 mls @ 133.3 mls/hr IVPB STAT STA PRN Reason: Protocol Stop: 12/14/16 12:25 Last Admin: 12/14/16 11:27 Dose: 133.3 mls/hr Vancomycin HCl (Vancomycin 1gm) 1 gm in 250 mls @ 167 mls/hr IVPB STAT STA PRN Reason: Protocol Stop: 12/14/16 12:24 Last Admin: 12/14/16 10:30 Dose: 167 mls/hr Sodium Chloride (Sodium Chloride 0.9%) 1,000 mls @ 999 mls/hr IV .Q1H1M STA Stop: 12/14/16 12:42 Last Admin: 12/14/16 12:01 Dose: 999 mls/hr Pneumococcal Polyvalent Vaccine (Pneumovax 23 Vaccine) 0.5 ml IM .ONCE ONE Stop: 12/14/16 15:03 - Scribe Statement The provider has reviewed the documentation as recorded by the Vladibe Abdulkadir Moscoso Provider Attestation: Provider Scribe Attestation: All medical record entries made by the Scribe were at my direction and personally dictated by me. I have reviewed the chart and agree that the record accurately reflects my personal performance of the history, physical exam, medical decision making, and the department course for this patient. I have also personally directed, reviewed, and agree with the discharge instructions and disposition. Disposition/Present on Arrival - Present on Arrival Any Indicators Present on Arrival: No History of DVT/PE: No History of Uncontrolled Diabetes: No Urinary Catheter: No History of Decub. Ulcer: No History Surgical Site Infection Following: None - Disposition Have Diagnosis and Disposition been Completed?: Yes Diagnosis: Leukocytosis, Intracranial bleed, DKA (diabetic ketoacidoses), NSTEMI (non-ST elevated myocardial infarction) Disposition: HOSPITALIZED Disposition Time: 11:00 Patient Problems: Current Active Problems Problem Status Onset Cellulitis Acute Intracranial bleed Acute Intraparenchymal hematoma of brain Acute Leukocytosis Acute Condition: CRITICAL
[2016-12-14 10:40] LABS: VENOUS BLOOD GAS BASE EXCESS -12.6 mmol/L (0.0-2.0); VENOUS BLOOD PH 7.23 (7.32-7.43)
[2016-12-14 10:41] LABS: BASO # 0.01 K/mm3 (0.0-2.0); BASO % 0.1 % (0.0-3.0); GRAN # 14.03 (1.4-6.5); GRAN % 91.1 % (50.0-68.0); HEMATOCRIT 32.7 % (42.0-52.0); LYMPH # 0.7 (1.2-3.4); LYMPH % 4.8 % (22.0-35.0); MEAN CELL VOLUME 80.7 fl (80.0-105.0); MEAN CORPUSCULAR HEMOGLOBIN 29.1 pg (25.0-35.0); MEAN CORPUSCULAR HGB CONC 36.1 g/dl (31.0-37.0); MEAN PLATELET VOLUME 10.7 fl (7.0-11.0); MONO # 0.6 (0.1-0.6); PLATELET COUNT 307 10^3/uL (120.0-450.0); RED CELL DISTRIBUTION WIDTH 14.6 % (11.5-14.5); WHITE BLOOD COUNT 15.4 10^3/ul (4.5-11.0)
[2016-12-14 10:50] LABS: INR 1.06 (0.93-1.08); PARTIAL THROMBOPLASTIN TIME 23.1 Seconds (23.7-30.8)
[2016-12-14 10:51] LABS: ALB/GLOB RATIO 1.5 (1.1-1.8); BILIRUBIN,TOTAL 0.7 mg/dL (0.2-1.3); CALCIUM 9.8 mg/dL (8.4-10.5); MAGNESIUM 1.9 mg/dL (1.7-2.2); POTASSIUM 4.7 mmol/L (3.6-5.0); TOTAL PROTEIN 8.1 g/dL (5.8-8.3)
[2016-12-14] MEDS ORDERED: Vancomycin 1gm in NS 250ml 1 GM/250 ML BAG IVPB STA (10:55)
[2016-12-14] MEDS ORDERED: Ciprofloxacin 400mg/200ml D5W 400 MG/200 ML BAG IVPB STA (10:55)
[2016-12-14 11:07] LABS: HYPOCHROMIA SLIGHT; NEUTROPHIL 90 % (50.0-70.0); PLATELET ESTIMATE NORMAL (NORMAL)
[2016-12-14 11:08] LABS: ANISOCYTOSIS 1+; MICROCYTOSIS 1+
[2016-12-14] MEDS ORDERED: Insulin Regular 100 UNITS in Sodium Chloride 0.9% 99 ML IV PRN (11:08)
--- NOTE | 2016-12-14 11:08 | CT ---
PROCEDURE: CT HEAD WITHOUT CONTRAST. HISTORY: syncope COMPARISON: 01/10/2016 TECHNIQUE: Axial computed tomography images were obtained through the head/brain without intravenous contrast. Radiation dose: Total exam DLP = 688 mGy-cm. This CT exam was performed using one or more of the following dose reduction techniques: Automated exposure control, adjustment of the mA and/or kV according to patient size, and/or use of iterative reconstruction technique. FINDINGS: HEMORRHAGE: There is a large hemorrhage in the right parietal lobe and posterior frontal lobe measuring 3.4 x 4.7 cm. There is a thin rim of surrounding edema. This probably represents a hemorrhagic infarct. There is no intraventricular hemorrhage or subarachnoid hemorrhage visualized. BRAIN: Areas of hypodensity are also seen more anteriorly in the right frontal lobe making the findings more consistent with an acute infarct. There is no midline shift VENTRICLES: Unremarkable. No hydrocephalus. CALVARIUM: Unremarkable. PARANASAL SINUSES: Unremarkable as visualized. No significant inflammatory changes. MASTOID AIR CELLS: Unremarkable as visualized. No inflammatory changes. OTHER FINDINGS: Findings were discussed with Dr. Rush at 11:05 a.m. IMPRESSION: Probable hemorrhagic infarct right posterior frontal parietal lobe. Nonhemorrhagic infarct of the right anterior frontal lobe. There is no significant mass effect and no midline shift
[2016-12-14 11:34] LABS: TROPONIN I 0.36 ng/mL
[2016-12-14] MEDS ORDERED: Sodium Chloride 0.9% 1,000 ML IV STA (11:42)
[2016-12-14 13:05] LABS: URINE BILIRUBIN NEGATIVE (NEGATIVE); URINE BLOOD MODERATE (NEGATIVE); URINE GLUCOSE (UA) >=1000 mg/dL (NEGATIVE); URINE KETONE 15 mg/dL (NEGATIVE); URINE LEUKOCYTE ESTERASE NEGATIVE Leu/uL (NEGATIVE); URINE PROTEIN 100 mg/dL (<30 mg/dL); URINE UROBILINOGEN 0.2 E.U./dL (<1 E.U./dL)
[2016-12-14 13:06] LABS: URINE APPEARANCE CLEAR (CLEAR); URINE COLOR YELLOW (YELLOW)
--- NOTE | 2016-12-14 13:10 | RAD ---
PROCEDURE: Pelvis single view HISTORY: fall COMPARISON: TECHNIQUE: Single view portable FINDINGS: There is no fracture bony abnormality seen in the pelvis. IMPRESSION: Negative study
--- NOTE | 2016-12-14 13:11 | RAD ---
HISTORY: syncope COMPARISON: 12/03/2016 FINDINGS: LUNGS: No active pulmonary disease. PLEURA: No significant pleural effusion identified, no pneumothorax apparent. CARDIOVASCULAR: Mild cardiomegaly OSSEOUS STRUCTURES: No significant abnormalities. VISUALIZED UPPER ABDOMEN: Normal. OTHER FINDINGS: None. IMPRESSION: No active disease.
[2016-12-14 13:15] LABS: URINE WBC NEGATIVE /hpf (0-6)
--- NOTE | 2016-12-14 13:23 | CP.PCM.CON ---
History of Present Illness - History of Present Illness History of Present Illness: Patient is 66yo male with PMHx of NIDDM, HTN, toe amputations, presented to the ER with an unwitnessed fall. Patient is poor historian, stating he is not sure what happened. Pt was found on the floor by [employer] LE[employer] this morning. Pt denies fever, chills, cough, chest pain, palpitations, dizziness. Endorses generalized headache. In the ER patient noted to be in mild DKA, CT head noted to have large R parietal ICH. No other constitutional symptoms. Nomi PMHx: DM, HTN PSHx: toe amputation Allergies: PCN FHx: NC Meds: as per EMR Review of Systems - Review of Systems Review of Systems: As per HPI Past Patient History - Infectious Disease Hx of Infectious Diseases: None - Tetanus Immunizations Tetanus Immunization: Up to Date - Past Medical History & Family History Past Medical History?: Yes - Past Social History Smoking Status: Never Smoked - CARDIAC Hx Cardiac Disorders: Yes (CAD) Hx Circulatory Problems: Yes Hx Congestive Heart Failure: Yes Hx Hypertension: Yes Hx Pacemaker: No Hx Peripheral Vascular Disease: Yes Other/Comment: Stents x 6 in the heart. - PULMONARY Hx Respiratory Disorders: Yes Hx Chronic Obstructive Pulmonary Disease (COPD): Yes Hx Pneumonia: Yes - NEUROLOGICAL Hx Neurological Disorder: No - HEENT Hx HEENT Problems: Yes (BLURRY VISION TO LEFT EYE) Hx Cataracts: Yes (Right eye) - RENAL Hx Chronic Kidney Disease: Yes Hx Renal Failure: Yes - ENDOCRINE/METABOLIC Hx Endocrine Disorders: Yes Hx Diabetes Mellitus Type 2: Yes - HEMATOLOGICAL/ONCOLOGICAL Hx Blood Disorders: Yes Other/Comment: hx mrsa - INTEGUMENTARY Hx Dermatological Problems: Yes (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.ALL TOES L.RIGHT 3 TOES.) - MUSCULOSKELETAL/RHEUMATOLOGICAL Hx Musculoskeletal Disorders: No Hx Falls: No - GASTROINTESTINAL Hx Gastrointestinal Disorders: Yes Hx Gall Bladder Disease: Yes - GENITOURINARY/GYNECOLOGICAL Hx Genitourinary Disorders: No - PSYCHIATRIC Hx Psychophysiologic Disorder: Yes Hx Anxiety: Yes Hx Depression: Yes Hx Substance Use: No - SURGICAL HISTORY 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 Amputation of left foot toes. - ANESTHESIA Hx Anesthesia: Yes Hx Anesthesia Reactions: No Hx Malignant Hyperthermia: No Meds Allergies/Adverse Reactions: Allergies Allergy/AdvReac Type Severity Reaction Status Date / Time Penicillins Allergy RASH Verified 12/14/16 13:12 - Medications Medications: Current Medications Insulin Human Regular 100 (units/ Sodium Chloride) 100 mls @ 10 mls/hr IV .Q10H PRN; Protocol; 10 UNITS/HR PRN Reason: TITRATE PER MD ORDER Last Admin: 12/14/16 12:02 Dose: 6 units/hr, 6 mls/hr Physical Exam - Constitutional Appears: Well Additional comments: drowsy - Head Exam Head Exam: ATRAUMATIC, NORMAL INSPECTION, NORMOCEPHALIC - Eye Exam Pupil Exam: PERRL - Neck Exam Neck exam: Positive for: Full Rom - Respiratory Exam Respiratory Exam: Clear to Auscultation Bilateral, NORMAL BREATHING PATTERN - Cardiovascular Exam Cardiovascular Exam: RRR, +S1, +S2 - GI/Abdominal Exam GI & Abdominal Exam: Normal Bowel Sounds, Soft - Extremities Exam Extremities exam: Positive for: full ROM, normal inspection - Neurological Exam Additional comments: AAOx3 RUE 5/5, RLE 5/5, LUE 3/5, LLE 4/5 - Psychiatric Exam Psychiatric exam: Normal Affect Results - Vital Signs Recent Vital Signs: Last Vital Signs Temp 99.7 F H 12/14/16 10:23 Pulse 92 H 12/14/16 12:07 Resp 16 12/14/16 12:07 BP 170/86 H 12/14/16 12:07 Pulse Ox 100 12/14/16 12:07 - Labs Result Diagrams: 12/14/16 10:36 12/14/16 10:36 Labs: Laboratory Results - last 24 hr 12/14/16 12/14/16 11:51 13:00 POC Glucose (mg/dL) 411 H* Urine Color Yellow Urine Appearance Clear Urine pH 6.0 Ur Specific [place] 1.025 Urine Protein 100 H Urine Glucose (UA) >=1000 Urine Ketones 15 H Urine Blood Moderate H Urine Nitrate Negative Urine Bilirubin Negative Urine Urobilinogen 0.2 Ur Leukocyte Esterase Negative - Imaging and Cardiology CT scan - head Status: Image reviewed by me, Report reviewed by me Chest x-ray Status: Image reviewed by me, Pending Assessment & Plan - Assessment and Plan (Free Text) Assessment: 66yo male a/w DKA, ICH ICH, R Parietal DKA, Hyperglycemia Dehydration Leukocytosis Anemia Acute renal failure DM HTN - currently afebrile, HD stable, comfortable, awake, answers appropriately - on exam has mild LUE/LLE weakness - CT head noted for R parietal ICH - On labs has leukocytosis, ARF, AG Acidosis, with +ketones Recommend - Monitor, q1hr neuro checks - neurology consult - verify if patient takes ASA, may need Platelets - Keep SBP<140, may require Cardene gtt - Seizure prophylaxis - Antipyretics PRN, glycemic control, Na>140 - ECHO - Insulin drip, q1hr FS - repeat BMP in 4 hours - keep NPO - speech swallow eval, PT eval - check Phos, Mg - IVF hydration - check procalcitonin - panculture, Urine CX - check iron, TIBC, Folate, Retic count - UA, Ulytes - renal Sono - BP control - DVT ppx, SCDs - GI PPx, Pepcid IV - Monitor I/OS - admit to MICU
[2016-12-14 14:10] LABS: VENOUS BLOOD GAS BASE EXCESS -10.4 mmol/L (0.0-2.0)
[2016-12-14] MEDS ORDERED: Nicardipine 20 MG/200 ML 20 MG/200 ML BAG IV PRN (14:42)
[2016-12-14] MEDS ORDERED: Pneumococcal 23-Valent Vaccine IM ONE (15:02)
[2016-12-14] MEDS: Aztreonam 1 Gm in NS 100mL 100 ML IVPB SCH ×2 (15:04→21:24)
[2016-12-14] MEDS: levETIRAcetam 500 MG in Sodium Chloride 0.9% 100 ML IV SCH ×2 (15:26→21:02)
--- NOTE | 2016-12-14 15:27 | CP.PCM.CON ---
History of Present Illness - History of Present Illness History of Present Illness: Mr. 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 The patient was evaluated in the ICU and was clinically stable. He was found to be in DKA. He was able to follow commands appropriately and told me that he feels weaker on the left and the reason he fell is because he ran into the wall. Review of Systems - Review of Systems All systems: reviewed and no additional remarkable complaints except Past Patient History - Infectious Disease Hx of Infectious Diseases: None - Tetanus Immunizations Tetanus Immunization: Up to Date - Past Medical History & Family History Past Medical History?: Yes - Past Social History Smoking Status: Never Smoked - CARDIAC Hx Cardiac Disorders: Yes (CAD) Hx Circulatory Problems: Yes Hx Congestive Heart Failure: Yes Hx Hypertension: Yes Hx Pacemaker: No Hx Peripheral Vascular Disease: Yes Other/Comment: Stents x 6 in the heart. - PULMONARY Hx Respiratory Disorders: Yes Hx Chronic Obstructive Pulmonary Disease (COPD): Yes Hx Pneumonia: Yes - NEUROLOGICAL Hx Neurological Disorder: No - HEENT Hx HEENT Problems: Yes (BLURRY VISION TO LEFT EYE) Hx Cataracts: Yes (Right eye) - RENAL Hx Chronic Kidney Disease: Yes Hx Renal Failure: Yes - ENDOCRINE/METABOLIC Hx Endocrine Disorders: Yes Hx Diabetes Mellitus Type 2: Yes - HEMATOLOGICAL/ONCOLOGICAL Hx Blood Disorders: Yes Other/Comment: hx mrsa,LEGIONELLA IN THE URINE 2013 - INTEGUMENTARY Hx Dermatological Problems: Yes (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.ALL TOES L.RIGHT 3 TOES.) - MUSCULOSKELETAL/RHEUMATOLOGICAL Hx Musculoskeletal Disorders: Yes (RHABDOMYOLYSIS) Hx Falls: Yes (18-17) Hx Osteomyelitis: Yes - GASTROINTESTINAL Hx Gastrointestinal Disorders: Yes Hx Gall Bladder Disease: Yes - GENITOURINARY/GYNECOLOGICAL Hx Genitourinary Disorders: No - PSYCHIATRIC Hx Psychophysiologic Disorder: Yes Hx Anxiety: Yes Hx Depression: Yes Hx Substance Use: No - SURGICAL HISTORY Hx Surgeries: Yes 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 Amputation of left foot toes. - ANESTHESIA Hx Anesthesia: Yes Hx Anesthesia Reactions: No Hx Malignant Hyperthermia: No Meds Allergies/Adverse Reactions: Allergies Allergy/AdvReac Type Severity Reaction Status Date / Time Penicillins Allergy RASH Verified 12/14/16 13:12 - Medications Medications: Current Medications Acetaminophen (Tylenol 325mg Tab) 650 mg PO Q6H PRN PRN Reason: Fever >100.4 F Insulin Human Regular 100 (units/ Sodium Chloride) 100 mls @ 10 mls/hr IV .Q10H PRN; Protocol; 10 UNITS/HR PRN Reason: TITRATE PER MD ORDER Last Admin: 12/14/16 12:02 Dose: 6 units/hr, 6 mls/hr Sodium Chloride (Sodium Chloride 0.9%) 1,000 mls @ 100 mls/hr IV .Q10H [facility] Aztreonam (Azactam 1 Gm) 100 mls @ 100 mls/hr IVPB Q8 [facility] PRN Reason: Protocol Stop: 12/14/16 22:59 Last Admin: 12/14/16 15:04 Dose: 100 mls/hr Levetiracetam 500 mg/ Sodium (Chloride) 105 mls @ 460 mls/hr IV Q12 [facility] Vancomycin HCl (Vancomycin 1gm) 1 gm in 250 mls @ 167 mls/hr IVPB DAILY [facility] PRN Reason: Protocol Nicardipine HCl (Cardene Iv Premix) 20 mg in 200 mls @ 50 mls/hr IV .Q4H PRN; Protocol; 5 MG/HR PRN Reason: TITRATE PER MD ORDER Pantoprazole Sodium (Protonix Ec Tab) 40 mg PO 0600 [facility] Physical Exam - Constitutional Appears: Non-toxic - Head Exam Head Exam: ATRAUMATIC, NORMAL INSPECTION, NORMOCEPHALIC - Eye Exam Pupil Exam: Irregular - ENT Exam ENT Exam: Mucous Membranes Moist, Normal Exam - Neck Exam Neck exam: Positive for: Normal Inspection - Respiratory Exam Respiratory Exam: Clear to Auscultation Bilateral, NORMAL BREATHING PATTERN - Cardiovascular Exam Cardiovascular Exam: REGULAR RHYTHM, +S1, +S2 - GI/Abdominal Exam GI & Abdominal Exam: Normal Bowel Sounds, Soft. absent: Tenderness - Neurological Exam Neurological exam: Alert, CN II-XII Intact, Oriented x3 - Expanded Neurological Exam Expanded Patient oriented to: person, place, time Cranial nerves: EOM's Intact: Normal, Facial Sensation: Normal Ataxia: No Cerebellar Function: Finger to Nose: Abnormal Left Upper motor neuron: Babinski Sign: Abnormal Left Sensory exam: Lower Extremity Light Touch: Abnormal Left, Upper Extremity Light Touch: Abnormal Left Neuro motor strength exam: Left Upper Extremity: 4, Right Upper Extremity: 5, Left Lower Extremity: 4, Right Lower Extremity: 5 DTR: Achilles Tendon Left: 3+, Achilles Tendon Right: 2+, Bicep Left: 3+, Bicep Right: 2+, Patellar Left: 3+, Patellar Right: 2+ - Psychiatric Exam Psychiatric exam: Normal Affect, Normal Mood - Skin Skin Exam: Dry, Intact, Normal Color, Warm Results - Vital Signs Recent Vital Signs: Last Vital Signs Temp 97.7 F 12/14/16 14:27 Pulse 70 12/14/16 14:27 Resp 16 12/14/16 14:27 BP 170/86 H 12/14/16 14:27 Pulse Ox 100 12/14/16 12:07 - Labs Result Diagrams: 12/14/16 10:36 12/14/16 10:36 Labs: Laboratory Results - last 24 hr 12/14/16 12/14/16 12/14/16 11:51 13:00 13:26 pO2 VBG pH VBG pCO2 VBG HCO3 VBG Total CO2 VBG O2 Sat (Calc) VBG Base Excess VBG Potassium Sodium Chloride Glucose Lactate FiO2 POC Glucose (mg/dL) 411 H* 323 H Venous Blood Potassium Urine Color Yellow Urine Appearance Clear Urine pH 6.0 Ur Specific Sheldon 1.025 Urine Protein 100 H Urine Glucose (UA) >=1000 Urine Ketones 15 H Urine Blood Moderate H Urine Nitrate Negative Urine Bilirubin Negative Urine Urobilinogen 0.2 Ur Leukocyte Esterase Negative Urine RBC 1 - 3 Urine WBC Negative 12/14/16 12/14/16 14:00 14:50 pO2 39 VBG pH 7.30 L VBG pCO2 30.0 L VBG HCO3 14.8 L VBG Total CO2 15.7 L VBG O2 Sat (Calc) 84.9 H VBG Base Excess -10.4 L VBG Potassium 3.8 Sodium 143.0 Chloride 114.0 H Glucose 291 H Lactate 2.2 H FiO2 21.0 POC Glucose (mg/dL) 256 H Venous Blood Potassium 3.8 Urine Color Urine Appearance Urine pH Ur Specific Sheldon Urine Protein Urine Glucose (UA) Urine Ketones Urine Blood Urine Nitrate Urine Bilirubin Urine Urobilinogen Ur Leukocyte Esterase Urine RBC Urine WBC - Imaging and Cardiology CT scan - head Status: Image reviewed by me, Report reviewed by me (ICH measuring about 56 mL in volume in the right frontal parietal region in the cortical and subcortical region, appears traumatic.) Assessment & Plan (1) Intraparenchymal hematoma of brain Assessment and Plan: 1. Admit to ICU and monitor with telemetry 2. Keep head of bed elevated to >30 degrees 3. Give Keppra 500 mg Q12 for 7 days 4. Avoid dextrose containing fluids, fever or hypertension 5. Keep SBP from 130-160 mm hg 6. Hold anti-platelet agents or anti-coagulation for the next 48 hours 7. SCD for DVT Px 8. Obtain CTA of the head/neck 9. MRI of the brain with and without contrast when logistically possible Thank you. Status: Acute Priority: High
[2016-12-14] MEDS: Vancomycin 1gm in NS 250ml 1 GM/250 ML BAG IVPB SCH (16:05)
--- NOTE | 2016-12-14 16:27 | CARD ---
APPROVED REPORT EKG Measurement Heart [id number] <Conclusion> Normal sinus rhythm Left axis deviation Septal infarct, age undetermined Abnormal ECG
[2016-12-14 16:57] LABS: CALCIUM 9.5 mg/dL (8.4-10.5); MAGNESIUM 1.8 mg/dL (1.7-2.2); PHOSPHOROUS 1.9 mg/dL (2.5-4.5); POTASSIUM 4.1 mmol/L (3.6-5.0)
[2016-12-14 17:09] LABS: IRON 56 ug/dL (45-180); TROPONIN I 0.75 ng/mL
[2016-12-14] MEDS ORDERED: Potassium Phosphate 15 MMOLE in Sodium Chloride 0.9% 250 ML IVPB ONE (17:12)
--- NOTE | 2016-12-14 17:47 | CARD ---
APPROVED REPORT EXAM: Two-dimensional and M-mode echocardiogram with Doppler and color Doppler. INDICATION INTRACRANIAL HEMORRAGE 2D DIMENSIONS Left Atrium (2D)4.8 (1.6-4.0cm)IVSd1.1 (0.7-1.1cm) LVDd5.5 (3.9-5.9cm)PWd1.0 (0.7-1.1cm) LVDs4.4 (2.5-4.0cm)FS (%) 19.1 % LVEF (%)39.0 (>50%) M-Mode DIMENSIONS Aortic Root3.10 (2.2-3.7cm)Aortic Cusp Exc.1.80 (1.5-2.0cm) Aortic Valve AoV Peak Uonllafa388.0cm/Trey Peak GR.9mmHg Mitral Valve MV E Ylejutlp47.7cm/sMV A Kymaykhq429.0cm/sE/A ratio0.6 TDI Lateral E' Peak V7.21cm/sMedial E' Peak V4.78cm/sE/Lateral E'8.7 E/Medial E'13.1 Pulmonary Valve PV Peak Xhfqzsor204.0cm/sPV Peak Grad.4mmHg Tricuspid Valve TR Peak Uleqmdii340xa/sRAP [id number] Peak Gr.8mmHg [id number] LEFT VENTRICLE The Left Ventricle is borderline dilated. There is normal left ventricular wall thickness. The systolic function is moderately impaired.EF-35-40% There is mild to moderate hypokinesis in the apical anterior wall. Transmitral Doppler flow pattern is Grade III-reversible restrictive diastolic dysfunction. No left ventricle thrombus noted on this study. There is no ventricular septal defect visualized. There is no left ventricular aneurysm. There is no mass noted in the left ventricle. RIGHT VENTRICLE The right ventricle is normal size. There is normal right ventricular wall thickness. The right ventricular systolic function is normal. ATRIA The left atrium is mildly dilated. The right atrium size is normal. The interatrial septum is intact with no evidence for an atrial septal defect. AORTIC VALVE The aortic valve is thickened but opens well. The aortic valve is severely thickened. There is trace aortic regurgitation. There is no aortic valvular stenosis. There is no aortic valvular vegetation. MITRAL VALVE The mitral valve is thickened but opens well. Mitral regurgitation is mild. There is no mitral valve stenosis. There is no evidence of mitral valve prolapse. TRICUSPID VALVE The tricuspid valve leaflets are thickened , but open well. There is trace tricuspid regurgitation.RVSP-18 mmof Hg. There is no tricuspid valve stenosis. There is no tricuspid valve prolapse or vegetation. PULMONIC VALVE The pulmonary valve is normal in structure. There is trace pulmonic valvular regurgitation. There is no pulmonic valvular stenosis. GREAT VESSELS The aortic root is normal in size. The ascending aorta is normal in size. The pulmonary artery is normal. The IVC is normal in size and collapses >50% with inspiration. PERICARDIAL EFFUSION There is no pleural effusion. There is no pericardial effusion. <Conclusion> The Left Ventricle is borderline dilated. There is normal left ventricular wall thickness. The systolic function is moderately impaired.EF-35-40% There is trace aortic regurgitation. Mitral regurgitation is mild. There is trace tricuspid regurgitation.RVSP-18 mmof Hg. The IVC is normal in size and collapses >50% with inspiration. There is no pericardial effusionNo vegetation or thrombus noted.
--- NOTE | 2016-12-14 21:22 | CP.PCM.HP ---
History of Present Illness - History of Present Illness History of Present Illness: 12/14/16 Maco Prince is a 66 year old male, with a history of hypertension and diabetes, presents to the emergency department s/p unwitnessed fall. Patient was found on the floor in kitchen by the home health aide today morning. Patient is poor historian and is unsure how he fell or how long he was on the floor. Patient unsure if he lost consciousness. In the emergency department, his blood sugar was noted to be elevated. Does not endorse any other complaints. Denies fever, chills, headache, chest pain, difficulty breathing, back pain, nausea, vomiting, diarrhea, urinary symptoms, or any other complaints at this time. no cough Present on Admission - Present on Admission Any Indicators Present on Admission: No Past Patient History - Infectious Disease Hx of Infectious Diseases: None - Tetanus Immunizations Tetanus Immunization: Up to Date - Past Medical History & Family History Past Medical History?: Yes - Past Social History Smoking Status: Never Smoked Drugs: Prescription medications - CARDIAC Hx Cardiac Disorders: Yes (CAD) Hx Circulatory Problems: Yes Hx Congestive Heart Failure: Yes Hx Hypertension: Yes Hx Pacemaker: No Hx Peripheral Vascular Disease: Yes Other/Comment: Stents x 6 in the heart. - PULMONARY Hx Respiratory Disorders: Yes Hx Chronic Obstructive Pulmonary Disease (COPD): Yes Hx Pneumonia: Yes - NEUROLOGICAL Hx Neurological Disorder: No - HEENT Hx HEENT Problems: Yes (BLURRY VISION TO LEFT EYE) Hx Cataracts: Yes (Right eye) - RENAL Hx Chronic Kidney Disease: Yes Hx Renal Failure: Yes - ENDOCRINE/METABOLIC Hx Endocrine Disorders: Yes Hx Diabetes Mellitus Type 2: Yes - HEMATOLOGICAL/ONCOLOGICAL Hx Blood Disorders: Yes Other/Comment: hx mrsa - INTEGUMENTARY Hx Dermatological Problems: Yes (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.ALL TOES L.RIGHT 3 TOES.) - MUSCULOSKELETAL/RHEUMATOLOGICAL Hx Musculoskeletal Disorders: No Hx Falls: No - GASTROINTESTINAL Hx Gastrointestinal Disorders: Yes Hx Gall Bladder Disease: Yes - GENITOURINARY/GYNECOLOGICAL Hx Genitourinary Disorders: No - PSYCHIATRIC Hx Psychophysiologic Disorder: Yes Hx Anxiety: Yes Hx Depression: Yes Hx Substance Use: No - SURGICAL HISTORY 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 Amputation of left foot toes. - ANESTHESIA Hx Anesthesia: Yes Hx Anesthesia Reactions: No Hx Malignant Hyperthermia: No Meds Allergies/Adverse Reactions: Allergies Allergy/AdvReac Type Severity Reaction Status Date / Time Penicillins Allergy RASH Verified 12/14/16 13:12 Physical Exam - Constitutional Appears: Well - Head Exam Head Exam: NORMAL INSPECTION, NORMOCEPHALIC - Eye Exam Eye Exam: EOMI, Normal appearance - ENT Exam ENT Exam: Mucous Membranes Moist, Normal Exam - Neck Exam Neck exam: Positive for: Normal Inspection - Cardiovascular Exam Cardiovascular Exam: REGULAR RHYTHM - GI/Abdominal Exam GI & Abdominal Exam: Normal Bowel Sounds, Soft. absent: Tenderness - Rectal Exam Rectal Exam: NORMAL INSPECTION - Exam Exam: Circumcision, NORMAL INSPECTION External exam: NORMAL EXTERNAL EXAM Speculum exam: NORMAL SPECULUM EXAM Bimanual exam: NORMAL BIMANUAL EXAM - Extremities Exam Extremities exam: Positive for: normal inspection - Back Exam Back exam: NORMAL INSPECTION - Psychiatric Exam Psychiatric exam: Normal Affect, Normal Mood - Skin Skin Exam: Dry, Intact, Normal Color, Warm Results - Vital Signs Recent Vital Signs: Last Vital Signs Temp 98.1 F 12/14/16 20:23 Pulse 59 L 12/14/16 20:30 Resp 16 12/14/16 15:51 BP 122/57 L 12/14/16 20:21 Pulse Ox 100 12/14/16 20:30 - Labs Result Diagrams: 12/14/16 10:36 12/14/16 16:31 Labs: Laboratory Results - last 24 hr 12/14/16 12/14/16 12/14/16 11:51 13:00 13:26 pO2 VBG pH VBG pCO2 VBG HCO3 VBG Total CO2 VBG O2 Sat (Calc) VBG Base Excess VBG Potassium Sodium Chloride Glucose Lactate FiO2 Potassium Carbon Dioxide Anion Gap BUN Creatinine Est GFR ( Amer) Est GFR (Non-Af Amer) POC Glucose (mg/dL) 411 H* 323 H Random Glucose Calcium Phosphorus Magnesium Iron TIBC % Saturation Troponin I Venous Blood Potassium Urine Color Yellow Urine Appearance Clear Urine pH 6.0 Ur Specific Allen 1.025 Urine Protein 100 H Urine Glucose (UA) >=1000 Urine Ketones 15 H Urine Blood Moderate H Urine Nitrate Negative Urine Bilirubin Negative Urine Urobilinogen 0.2 Ur Leukocyte Esterase Negative Urine RBC 1 - 3 Urine WBC Negative 12/14/16 12/14/16 12/14/16 14:00 14:50 16:05 pO2 39 VBG pH 7.30 L VBG pCO2 30.0 L VBG HCO3 14.8 L VBG Total CO2 15.7 L VBG O2 Sat (Calc) 84.9 H VBG Base Excess -10.4 L VBG Potassium 3.8 Sodium 143.0 Chloride 114.0 H Glucose 291 H Lactate 2.2 H FiO2 21.0 Potassium Carbon Dioxide Anion Gap BUN Creatinine Est GFR ( Amer) Est GFR (Non-Af Amer) POC Glucose (mg/dL) 256 H 179 H Random Glucose Calcium Phosphorus Magnesium Iron TIBC % Saturation Troponin I Venous Blood Potassium 3.8 Urine Color Urine Appearance Urine pH Ur Specific Allen Urine Protein Urine Glucose (UA) Urine Ketones Urine Blood Urine Nitrate Urine Bilirubin Urine Urobilinogen Ur Leukocyte Esterase Urine RBC Urine WBC 12/14/16 12/14/16 12/14/16 16:31 16:31 16:49 pO2 VBG pH VBG pCO2 VBG HCO3 VBG Total CO2 VBG O2 Sat (Calc) VBG Base Excess VBG Potassium Sodium 145 Chloride 115 H Glucose Lactate FiO2 Potassium 4.1 Carbon Dioxide 15 L Anion Gap 19 BUN 39 H Creatinine 2.5 H Est GFR ( Amer) 32 Est GFR (Non-Af Amer) 26 POC Glucose (mg/dL) 195 H Random Glucose 165 H Calcium 9.5 Phosphorus 1.9 L Magnesium 1.8 Iron 56 TIBC 281 % Saturation 20 Troponin I 0.75 H* D Venous Blood Potassium Urine Color Urine Appearance Urine pH Ur Specific Allen Urine Protein Urine Glucose (UA) Urine Ketones Urine Blood Urine Nitrate Urine Bilirubin Urine Urobilinogen Ur Leukocyte Esterase Urine RBC Urine WBC 12/14/16 12/14/16 17:56 19:31 pO2 VBG pH VBG pCO2 VBG HCO3 VBG Total CO2 VBG O2 Sat (Calc) VBG Base Excess VBG Potassium Sodium Chloride Glucose Lactate FiO2 Potassium Carbon Dioxide Anion Gap BUN Creatinine Est GFR ( Amer) Est GFR (Non-Af Amer) POC Glucose (mg/dL) 173 H 173 H Random Glucose Calcium Phosphorus Magnesium Iron TIBC % Saturation Troponin I Venous Blood Potassium Urine Color Urine Appearance Urine pH Ur Specific Allen Urine Protein Urine Glucose (UA) Urine Ketones Urine Blood Urine Nitrate Urine Bilirubin Urine Urobilinogen Ur Leukocyte Esterase Urine RBC Urine WBC Assessment & Plan - Assessment and Plan (Free Text) Assessment: 66yo male a/w DKA, ICH ICH, R Parietal DKA, Hyperglycemia Dehydration Leukocytosis Anemia Acute renal failure DM HTN - currently afebrile, HD stable, comfortable, awake, answers appropriately - on exam has mild LUE/LLE weakness - CT head noted for R parietal ICH - On labs has leukocytosis, ARF, AG Acidosis, with +ketones Intraparenchymal hematoma of brain Assessment and Plan: 1. Admit to ICU and monitor with telemetry 2. Keep head of bed elevated to >30 degrees 3. Give Keppra 500 mg Q12 for 7 days 4. Avoid dextrose containing fluids, fever or hypertension 5. Keep SBP from 130-160 mm hg 6. Hold anti-platelet agents or anti-coagulation for the next 48 hours 7. SCD for DVT Px 8. Obtain CTA of the head/neck 9. MRI of the brain with and without contrast when logistically possible
[2016-12-14 21:24] LABS: ALB/GLOB RATIO 1.4 (1.1-1.8); BILIRUBIN,TOTAL 0.5 mg/dL (0.2-1.3); CALCIUM 8.9 mg/dL (8.4-10.5); MAGNESIUM 1.8 mg/dL (1.7-2.2); POTASSIUM 3.9 mmol/L (3.6-5.0); TOTAL PROTEIN 6.3 g/dL (5.8-8.3)
[2016-12-15] MEDS: Sodium Chloride 0.9% 1,000 ML IV SCH ×2 (04:51→16:37)
[2016-12-15] MEDS: Pantoprazole 40 mg EC Tab PO SCH (06:17)
[2016-12-15 06:20] LABS: ALB/GLOB RATIO 1.3 (1.1-1.8); BILIRUBIN,TOTAL 0.5 mg/dL (0.2-1.3); CALCIUM 9.2 mg/dL (8.4-10.5); MAGNESIUM 1.8 mg/dL (1.7-2.2); PHOSPHOROUS 2.9 mg/dL (2.5-4.5); POTASSIUM 4.2 mmol/L (3.6-5.0); TOTAL PROTEIN 6.8 g/dL (5.8-8.3)
[2016-12-15 06:32] LABS: WHITE BLOOD COUNT 16.2 10^3/ul (4.5-11.0)
[2016-12-15 06:33] LABS: BASO # 0.12 K/mm3 (0.0-2.0); BASO % 0.7 % (0.0-3.0); EOS # 0.1 (0.0-0.7); EOS % 0.3 % (1.5-5.0); GRAN # 13.07 (1.4-6.5); GRAN % 80.5 % (50.0-68.0); HEMATOCRIT 30.3 % (42.0-52.0); LYMPH # 1.6 (1.2-3.4); LYMPH % 9.7 % (22.0-35.0); MEAN CELL VOLUME 81.5 fl (80.0-105.0); MEAN CORPUSCULAR HEMOGLOBIN 29.3 pg (25.0-35.0); MEAN PLATELET VOLUME 11.4 fl (7.0-11.0); MONO # 1.4 (0.1-0.6); MONO % 8.8 % (1.0-6.0)
[2016-12-15] MEDS ORDERED: Insulin Human NPH 1 UNITS/0.01 ML SC ONE (06:33)
--- NOTE | 2016-12-15 06:42 | CP.PCM.PN ---
Subjective - Date & Time of Evaluation Date of Evaluation: 12/15/16 Time of Evaluation: 06:34 - Subjective Subjective: Patient not in DKA now, small non-anion gap acidosis still present with bicarb of 15, will be switched to subq insulin, patient's need has been about 1-1.5 units/hr of the regular insulin, so he will be started on levemir in a lesser 24 hr dose ie 15 units, with NPH one dose as well to work in the period till levemir starts effect. Regular insulin medium Sliding scale coverage is added. Objective - Vital Signs/Intake and Output Vital Signs (last 24 hours): Temp Pulse Resp BP Pulse Ox 98.4 F 63 17 125/47 L 95 12/15/16 04:00 12/15/16 06:20 12/15/16 06:20 12/15/16 06:17 12/15/16 05:10 Intake and Output: 12/14/16 12/15/16 18:59 06:59 Intake Total 1336 1426 Output Total 600 Balance 736 1426 - Medications Medications: Current Medications Acetaminophen (Tylenol 325mg Tab) 650 mg PO Q6H PRN PRN Reason: Fever >100.4 F Last Admin: 12/14/16 15:33 Dose: 650 mg Sodium Chloride (Sodium Chloride 0.9%) 1,000 mls @ 100 mls/hr IV .Q10H [facility] Last Admin: 12/15/16 04:51 Dose: 100 mls/hr Levetiracetam 500 mg/ Sodium (Chloride) 105 mls @ 460 mls/hr IV Q12 [facility] Last Admin: 12/14/16 21:02 Dose: 460 mls/hr Vancomycin HCl (Vancomycin 1gm) 1 gm in 250 mls @ 167 mls/hr IVPB DAILY [facility] PRN Reason: Protocol Last Admin: 12/14/16 16:05 Dose: 167 mls/hr Nicardipine HCl (Cardene Iv Premix) 20 mg in 200 mls @ 50 mls/hr IV .Q4H PRN; Protocol; 5 MG/HR PRN Reason: TITRATE PER MD ORDER Insulin Detemir (Levemir) 15 unit SC DAILY [facility] Insulin Human NPH (Humulin N) 5 units SC ONCE ONE Stop: 12/15/16 06:34 Insulin Human Regular (Humulin R Med) 0 units SC Q6 [facility] PRN Reason: Protocol Pantoprazole Sodium (Protonix Ec Tab) 40 mg PO 0600 [facility] Last Admin: 12/15/16 06:17 Dose: Not Given - Labs Labs: 12/15/16 05:30 12/15/16 05:30 PT 11.4 Seconds (9.9-11.8) 12/14/16 10:36 INR 1.06 (0.93-1.08) 12/14/16 10:36 APTT 23.1 Seconds (23.7-30.8) L 12/14/16 10:36
[2016-12-15] MEDS: Insulin Detemir 100 units/ml Vial (Levemir) SC SCH ×2 (06:49→09:20)
--- NOTE | 2016-12-15 06:57 | CON ---
DATE: 12/14/2016 HISTORY OF PRESENT ILLNESS: This is a 66-year-old gentleman with a known history of diabetes and hypertension. He feels he ran into a wall, possibly struck his head, became altered. In any case, was seen in the [facility] ER. CT documented an intraparenchymal hematoma. Neurosurgical evaluation was requested. PAST MEDICAL HISTORY: His past medical history is most significant as above. The rest of the details are reviewed in the EMR. PHYSICAL EXAMINATION: He is actually currently in the process of undergoing an echocardiogram, thus making the examination difficult; however, he was quite conversant. He is oriented to self, hospital, but believes it is December. He does follow commands well. His speech is essentially fluent. Pupils were difficult to evaluate. Face was symmetric. He was moving all four extremities with good strength. Sensation is grossly intact. Could not do a visual field exam. LABORATORY DATA: CT of the brain shows relatively small right parietal intraparenchymal hemorrhage. He has some surrounding areas of lucency that may be hemorrhagic infarct versus an hypertensive intraparenchymal hemorrhage. In any case, there is very minimal mass effect, certainly no shift. IMPRESSION AND PLAN: Relatively small intraparenchymal hemorrhage. There was no need for neurosurgical involvement in this case management per neurology and medicine. Rickey Cantrell MD
--- NOTE | 2016-12-15 09:13 | CON ---
DATE: PULMONARY CONSULTATION REFERRING PHYSICIAN: Dr. Baca. REASON FOR CONSULT: May have sleep apnea syndrome, status post fall with bleed. HISTORY OF PRESENT ILLNESS: This is a 66-year-old gentleman with past medical history significant for hypertension, diabetes, legally blind, came into the emergency room and found to have a right frontal and parietal intraparenchymal hemorrhage. Also found to have hyperglycemia with DKA. According to the patient, he never lost his consciousness, walked into the . Presently, he is admitted to intensive care unit, seen by neurology, has a mild headache, daytime sleepy and tired. No chest pain, no nausea, no vomiting, no diarrhea, no polyuria. No leg pain or leg swelling. PAST MEDICAL HISTORY: Diabetes with peripheral vascular disease, requiring numbers of toe amputation, retinopathy, hypertension, hyperlipidemia, coronary artery disease, history of coronary stent, renal failure, obesity. ALLERGIES: ALLERGIC TO PENICILLIN. SOCIAL HISTORY: No smoke, no drink. FAMILY HISTORY: No significant cardiopulmonary disease reported. MEDICATIONS: He is on nicardipine, IV insulin coverage, levetiracetam 500 mg q. 12 hours, Protonix 40 mg daily, IV fluid normal saline 100 mL per hour, Tylenol p.r.n., vancomycin 1 g IV daily. REVIEW OF SYSTEMS: Had some headache, rhinitis, admitted to have snoring, daytime sleepy and tired. No chest pain, abdominal pain, no dysuria, no leg pain or leg swelling. PHYSICAL EXAMINATION: GENERAL: Lying in the bed, no acute distress. VITAL SIGNS: Temp is 98, heart rate is 50, respiratory rate is 20, blood pressure 118/52, pulse ox is 100% on nasal cannula. HEENT: Moist mucous membrane. Crowded airway. Mallampati score is 4. NECK: Supple. No JVD. LUNGS: Has fair airflow with rhonchi. HEART: S1 and S2. ABDOMEN: Soft and nontender. No organomegaly. EXTREMITIES: 1+ edema. NEUROLOGIC: Awake and alert, follow simple commands. LABORATORY DATA: Shows hemoglobin 11.8, hematocrit 32.7, WBC 15.4, platelet count is 307. INR 1.06, PTT is 23. Has VBG done, which shows pH 7.30, pCO2 of 30. Chemistry shows sodium 143, potassium 3.9, chloride 118, bicarbonate is 15, BUN is 36, creatinine 2.3, glucose 148, calcium is 8.9, magnesium 1.8, AST 37, ALT 30, alkaline phosphatase is 88. C-reactive protein 3.7. Microbiology; urine culture, there is no growth. CAT scan of the head was done on admission, which shows probably hemorrhage infarct right posterior, frontoparietal lobe, known hemorrhagic infarct of the right inferior frontal lobe, there is no significant mass effect and no midline shift. X-ray of the pelvis done, which is unremarkable. Echocardiogram done shows right ventricular systolic pressure is 18, systolic function of left ventricle is 35% to 40%. 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 The patient was seen by Dr. Tim Mahoney. Started on vasodilator for secondary ischemic stroke. Keep head elevated to [address] the patient on BiPAP 10/7 with 30% of oxygen, very high possibility of obstructive sleep apnea, try to decrease sympathetic tone. While sleeping keep head elevated to 45 degree. Followup CTA to assure the stability or assure there is no cranial vasospasm. We will suggest attended sleep study as outpatient. We will follow with you. Ginger Cao MD
[2016-12-15] MEDS: Vancomycin 1gm in NS 250ml 1 GM/250 ML BAG IVPB SCH (09:19)
--- NOTE | 2016-12-15 09:19 | PN ---
DATE: 12/15/2016 HAND DRAWER IN HELPER NOTE SUBJECTIVE: The patient is resting in bed, awake and alert, answering all questions appropriately. He has O2 via nasal cannula, very comfortable with his respiratory status. The patient is still on Cardene for blood pressure control with no acute distress, no complaints of pain. Still has some mild weakness in the left upper extremity. PHYSICAL EXAMINATION: VITAL SIGNS: Temperature is 98.4, his pulse is 62, respirations are 17 and BP is 125/47. SKIN: Warm and dry. HEENT: Head is atraumatic and normocephalic. Eyes are reactive to light. Ears, nose, and throat seem to be within normal limits. NECK: Supple. No JVD. No thyroid enlargement. No lymph nodes. HEART: Has a regular rate and rhythm. Normal S1 and S2. LUNGS: Reveal good breath sounds bilaterally. ABDOMEN: Soft and nontender. Decreased bowel sounds. GENITALIA: Deferred. RECTAL: Deferred. MUSCULOSKELETAL: No joint deformities. EXTREMITIES: Reveal trace lower extremity edema. NEUROLOGIC: The patient does have some slight weakness in the left upper extremity. LABORATORY DATA: His white count is 16.2, hemoglobin is 10.9, hematocrit 30.3 with platelets of 291,000. Sodium is 146, potassium 4.2, chloride 119, CO2 of 15 with a BUN of 34 and a creatinine of 2.2, glucose of 132. IMPRESSION: This patient presented with cerebrovascular accident, having history of falling at home. The patient also is noted to have diabetic ketoacidosis and has a history of diabetes as well as hypertension. PLAN: We will continue with O2 via nasal cannula. The patient is continuing with the Cardene drip. We will continue to evaluate neuro checks and follow the patient's blood sugars and treat as necessary. He is getting Keppra as well as Levemir and Protonix. We will correct labs as needed. We will continue to treat aggressively and follow closely along with the other consultants and the primary care doctor. Yao Hines MD
[2016-12-15] MEDS: levETIRAcetam 500 MG in Sodium Chloride 0.9% 100 ML IV SCH (09:20)
[2016-12-15] MEDS ORDERED: Vancomycin 1gm in NS 250ml 1 GM/250 ML BAG IVPB SCH (10:00)
[2016-12-15] MEDS: Insulin Reg-MEDIUM-Coverage SC SCH ×2 (11:53→18:07)
--- NOTE | 2016-12-15 11:58 | CP.PCM.PN ---
Subjective - Date & Time of Evaluation Date of Evaluation: 12/15/16 Time of Evaluation: 11:56 - Subjective Subjective: Mr. Prince was seen and examined today at bedside in the ICU. He was awake , alert and responsive. He did not have any complaints, but continued to have left side weakness. Objective - Vital Signs/Intake and Output Vital Signs (last 24 hours): Temp Pulse Resp BP Pulse Ox 98.3 F 78 11 L 142/68 100 12/15/16 08:00 12/15/16 11:20 12/15/16 07:10 12/15/16 10:48 12/15/16 11:20 Intake and Output: 12/15/16 12/15/16 06:59 18:59 Intake Total 1426 Balance 1426 - Medications Medications: Current Medications Acetaminophen (Tylenol 325mg Tab) 650 mg PO Q6H PRN PRN Reason: Fever >100.4 F Last Admin: 12/15/16 11:14 Dose: 650 mg Sodium Chloride (Sodium Chloride 0.9%) 1,000 mls @ 100 mls/hr IV .Q10H [facility] Last Admin: 12/15/16 04:51 Dose: 100 mls/hr Levetiracetam 500 mg/ Sodium (Chloride) 105 mls @ 460 mls/hr IV Q12 [facility] Last Admin: 12/15/16 09:20 Dose: 460 mls/hr Vancomycin HCl (Vancomycin 1gm) 1 gm in 250 mls @ 167 mls/hr IVPB DAILY [facility] PRN Reason: Protocol Last Admin: 12/15/16 09:19 Dose: 167 mls/hr Nicardipine HCl (Cardene Iv Premix) 20 mg in 200 mls @ 50 mls/hr IV .Q4H PRN; Protocol; 5 MG/HR PRN Reason: TITRATE PER MD ORDER Insulin Detemir (Levemir) 15 unit SC DAILY [facility] Last Admin: 12/15/16 09:20 Dose: 15 unit Insulin Human Regular (Humulin R Med) 0 units SC Q6 [facility] PRN Reason: Protocol Last Admin: 12/15/16 11:53 Dose: 1 units Pantoprazole Sodium (Protonix Ec Tab) 40 mg PO 0600 [facility] Last Admin: 12/15/16 06:17 Dose: Not Given - Labs Labs: 12/15/16 05:30 12/15/16 05:30 PT 11.4 Seconds (9.9-11.8) 12/14/16 10:36 INR 1.06 (0.93-1.08) 12/14/16 10:36 APTT 23.1 Seconds (23.7-30.8) L 12/14/16 10:36 - Neurological Exam Additional comments: Neurologically unchanged compared with yesterday's examination. Assessment and Plan (1) Intraparenchymal hematoma of brain Assessment & Plan: Continue current management for BP control. Avoid fever, hyperglycemia, and hyopnatremic. Continue seizure prophylaxis. Obtain follow-up CT head without contrast today. Status: Acute
[2016-12-15 13:21] LABS: FOLATE 16.8 ng/mL
[2016-12-15] MEDS: Nitroglycerin 2% Ointment Foilpak UD TOP SCH ×2 (13:49→19:00)
[2016-12-15 15:37] LABS: TROPONIN I 0.39 ng/mL
--- NOTE | 2016-12-15 16:14 | CT ---
PROCEDURE: CT HEAD WITHOUT CONTRAST. HISTORY: follow bleed COMPARISON: 12/14/2016 TECHNIQUE: Axial computed tomography images were obtained through the head/brain without intravenous contrast. Radiation dose: Total exam DLP = 1673.79 mGy-cm. This CT exam was performed using one or more of the following dose reduction techniques: Automated exposure control, adjustment of the mA and/or kV according to patient size, and/or use of iterative reconstruction technique. FINDINGS: HEMORRHAGE: Note is made of right frontoparietal parenchymal hemorrhage unchanged grossly in extent when compared to the prior examination. There is increasing width of the surrounding rim of low attenuation. This likely represents a hemorrhagic infarct. There is evidence of acute infarct both more superiorly in the parietal lobe as well as multifocal acute right frontal bland infarcts. BRAIN: Mass-effect upon the right lateral ventricle without midline shift. No downward herniation. Basilar cisterns are preserved. No atrophy or chronic microvascular ischemic changes. VENTRICLES: No hydrocephalus. CALVARIUM: Unremarkable. PARANASAL SINUSES: Unremarkable as visualized. No significant inflammatory changes. MASTOID AIR CELLS: Unremarkable as visualized. No inflammatory changes. OTHER FINDINGS: None. IMPRESSION: Subacute hemorrhagic infarct right frontoparietal with adjacent bland infarct both in the superior right parietal lobe as well as multifocal small infarcts in the right frontal lobe, along the convexity. No appreciable interval change in extent of the focal hemorrhage. No herniation.
[2016-12-15] MEDS: levETIRAcetam 500mg IVPB 500 MG/100 ML BAG IVPB SCH (21:13)
[2016-12-16] MEDS: Nitroglycerin 2% Ointment Foilpak UD TOP SCH ×4 (01:00→19:13)
--- NOTE | 2016-12-16 02:53 | CON ---
DATE: 12/15/2016 REASON FOR THE DICTATION: Covering Dr. Lamont Azul. REASON FOR THE CONSULTATION: Positive troponin, admitted with a DKA, intracranial bleed, leukocytosis, possible non-STEMI. BRIEF CLINICAL HISTORY: This is a 66-year-old male with past medical history significant for diabetes, hypertension, hyperlipidemia, coronary artery disease, who was recently discharged home. History of fall in the kitchen. The patient said that they brought here and found to be in diabetic ketoacidosis, sepsis, intracranial bleed, and positive troponin. Denies any chest pain, shortness of breath or any palpitation. The patient is in ICU 128, bed #5. PAST MEDICAL HISTORY: Significant for coronary artery disease, history of PTCA and stent in the past, history of diabetes, hypertension, hyperlipidemia, and chronic renal insufficiency. SOCIAL HISTORY: Denies smoking. Denies any history of alcohol abuse. CURRENT MEDICATIONS: The patient is taking at home vitamin D, amlodipine, glipizide, atorvastatin, aspirin, and Januvia. ALLERGIES: ALLERGY TO PENICILLIN. PREVIOUS CARDIAC WORKUP: As follows; the patient had echocardiography done on 12/14/2016 that showed normal LV wall thickness, systolic function moderately impaired, ejection fraction 35% to 40%, trace aortic regurgitation, mild mitral regurgitation, trace tricuspid regurgitation and RV systolic pressure 18. No pericardial effusion or thrombus noted on 12/14/2016. REVIEW OF SYSTEMS: As per HPI. PHYSICAL EXAMINATION VITAL SIGNS: Temperature afebrile, heart rate 71, and blood pressure 142/68. HEENT: PERRLA. Extraocular muscles intact. NECK: Supple. No carotid bruit or thyromegaly. CHEST: Clear to auscultation. HEART: S1 and S2 regular. ABDOMEN: Soft. EXTREMITIES: Clubbing and cyanosis negative. EKG showed normal sinus, LVH. No acute ST-T changes noted. LABORATORY DATA: Blood workup: WBC 16.8, hemoglobin 10.8, hematocrit 30.3 and platelet count 291. Chemistry shows sodium 143, potassium 4.2, chloride 119, carbon dioxide 15, anion gap of 16, BUN of 34, creatinine 2.2. Troponin 1.05, now trending to 0.68. IMPRESSION: A 66-year-old male with a history of diabetes, hypertension, hyperlipidemia, coronary artery disease, status post stent in the past, admitted after a fall, leucocytosis, diabetic ketoacidosis and positive troponin. Denies any chest pain. History of acute kidney injury and chronic renal insufficiency. RECOMMENDATION: We will start nitrate, beta agnieszka, renal dose of q. 12, monitor renal function, broad-spectrum antibiotics. Follow up the trend of troponin, and if it trends up then consider cardiac catheterization; otherwise, we will treat him medically because of the patient's acute kidney injury, and it will be verge of renal failure if we use the contrast. Risk and benefit ratio will be assessed periodically and upon hospital course, and we will transfer the care Saturday to Dr. Azul. The patient currently is asymptomatic. We will follow with you. Thank you Dr. Baca for providing the opportunity in taking care of the patient, Maco Prince. . Ginger Rodriguez MD
--- NOTE | 2016-12-16 03:50 | CON ---
ADDENDUM The patient was seen, ____ ordered aspirin, Plavix, and Lovenox, but I now learned that the patient had a CAT scan done that showed intracerebral bleed, so we will discontinue aspirin, discontinue Plavix, and I will not start Lovenox. Discontinued beta agnieszka and nitrates. The patient also had echocardiography done yesterday that showed ejection fraction of 35% to 40%, mild mitral regurgitation, trace tricuspid regurgitation, RV systolic pressure of 80, no pericardial effusion nor vegetation noted. We will transfer the care to Dr. Azul on Saturday and try to treat conservatively. Initially, I also dictated that we will consider cardiac catheterization, but given this finding, we will treat the patient conservatively. Thank you Dr. Baca for the opportunity in taking care of the patient, Maco Prince. Ginger Rodriguez MD
[2016-12-16] MEDS: Sodium Chloride 0.9% 1,000 ML IV SCH ×2 (04:07→16:26)
--- NOTE | 2016-12-16 05:09 | PN ---
DATE: 12/15/2016 SUBJECTIVE: He is lying in the bed, head at 45 degree. Does not like CPAP much. Feels okay though wants to go home. No nausea, vomiting or diarrhea. No leg pain or swelling. OBJECTIVE: VITAL SIGNS: Temperature is 98, heart rate is 49, respiratory rate is 20, blood pressure 138/101, pulse ox is 100% on nasal cannula. HEENT: Moist mucous membrane. Crowded airway. Mallampati score is 4. NECK: Supple. No JVD. LUNGS: Has fair airflow with rhonchi. HEART: S1 and S2. ABDOMEN: Soft and nontender. No organomegaly. EXTREMITIES: There is no much edema. NEUROLOGIC: Awake and alert, follow simple commands. MEDICATIONS: He is on Cardene drip which is on hold for blood pressure less then 130, Colace 100 mg daily, insulin coverage, Keppra 500 mg twice a day, Levemir 15 units subcutaneously daily, metoprolol tartrate 12.5 mg twice a day, Nitro-Bid 2%, q. 6 hours, Protonix 40 mg daily, IV fluid normal saline 100 mL per hour, Tylenol p.r.n. basis, vancomycin 1 g IV daily. LABORATORY DATA: Shows hemoglobin is 10.9, hematocrit 30.3, WBC 16.2, platelets of 291. Sodium is 146, potassium 4.2, chloride 119, CO2 of 15, BUN of 34, creatinine of 2.2, glucose of 145, calcium 9.2, phosphorous 2.9, magnesium 1.8, AST 48, ALT 33, alkaline phosphatase is 101, troponin is 0.39. Microbiology; blood culture is been negative. CAT scan of the head was done today shows subacute hemorrhagic infarct, right frontal parietal with adjacent bland infract both in the superior right parietal lobe as well as the multifocal small infract in the right frontal lobe along the convexity. ASSESSMENT AND PLAN: Intracranial bleed with ulcer, probably cranial vasospasm and ischemic stroke, diabetes, chronic obstructive lung disease, coronary artery disease, anemia, peripheral vascular disease, may have sleep apnea syndrome. Spoke to the patient at bedside and also spoke to nursing staff. Encourage 45 degree. Being followed by stroke neurology. Follow up labs in the morning. Thank you and we will follow with you. Ginger Cao MD [facility] # [id number]
[2016-12-16 05:34] LABS: BASO # 0.03 K/mm3 (0.0-2.0); BASO % 0.2 % (0.0-3.0); EOS % 0.3 % (1.5-5.0); GRAN # 9.76 (1.4-6.5); GRAN % 79.5 % (50.0-68.0); HEMATOCRIT 27.8 % (42.0-52.0); LYMPH # 1.4 (1.2-3.4); LYMPH % 11.1 % (22.0-35.0); MEAN CELL VOLUME 80.3 fl (80.0-105.0); MEAN CORPUSCULAR HEMOGLOBIN 28.9 pg (25.0-35.0); MEAN PLATELET VOLUME 10.2 fl (7.0-11.0); MONO # 1.1 (0.1-0.6); MONO % 8.9 % (1.0-6.0); RED CELL DISTRIBUTION WIDTH 14.5 % (11.5-14.5); WHITE BLOOD COUNT 12.3 10^3/ul (4.5-11.0)
[2016-12-16 05:45] LABS: ALB/GLOB RATIO 1.3 (1.1-1.8); BILIRUBIN,TOTAL 0.5 mg/dL (0.2-1.3); CALCIUM 8.8 mg/dL (8.4-10.5); MAGNESIUM 1.6 mg/dL (1.7-2.2); PHOSPHOROUS 3.1 mg/dL (2.5-4.5); POTASSIUM 4.1 mmol/L (3.6-5.0); TOTAL PROTEIN 6.5 g/dL (5.8-8.3)
[2016-12-16 06:09] LABS: TROPONIN I 0.42 ng/mL
[2016-12-16] MEDS: Insulin Reg-MEDIUM-Coverage SC SCH ×4 (06:36→21:59)
[2016-12-16] MEDS: Pantoprazole 40 mg EC Tab PO SCH (06:38)
[2016-12-16] MEDS: Nicardipine 20 MG/200 ML 20 MG/200 ML BAG IV PRN ×2 (07:34→16:10)
--- NOTE | 2016-12-16 07:38 | PN ---
SUBJECTIVE: The patient was examined on the bedside. Awake, alert, and moving all 4 extremities. No nausea, vomiting or diarrhea. Getting oxygen by nasal cannula. No hematuria or hematochezia. Still has some mild weakness in the left upper extremity. PHYSICAL EXAMINATION: VITAL SIGNS: Temperature 98.2, pulse 60, respiratory rate 18 and blood pressure 125/47 HEENT: Head is normocephalic and atraumatic. Eyes; PERRLA. Extraocular muscles intact. Conjunctivae clear. Nose is patent. Mucous membranes moist. NECK: Supple. No carotid bruit. No JVD. No thyromegaly. CHEST: Bilaterally symmetrical. HEART: S1 and S2 positive. LUNGS: Clear to auscultation. ABDOMEN: Soft. Bowel sounds present. No organomegaly. EXTREMITIES: No edema. No cyanosis. Communicating slight weakness in the left upper extremity. LABORATORY DATA: White blood cell 16.2, hemoglobin 10.9, hematocrit 30.3, and platelets 291,000. Sodium 146, potassium 4.1, BUN of 34 and creatinine of 2.2. ASSESSMENT AND PLAN: The patient is a 66-year-old male with multiple medical problems, has cerebrovascular accident after hitting his head on the wall; has history of fall; diabetic ketoacidosis, is noncompliant; hypertension; and hypercholesterolemia. Seen by neurologist Dr. Tim Mahoney. Still in intensive care unit. We are managing blood pressure with fever, hypoglycemia, and hyponatremia, seizure precautions. We follow CT scan of the head without contrast. History of renal insufficiency. Seen by Dr. Kike Garnett. The patient is not in diabetic ketoacidosis. The patient does take subQ insulin. He is getting Levemir. Gastrointestinal/deep venous thrombosis prophylaxis, repeat labs. We will follow up. Cindy Baca MD
[2016-12-16] MEDS: Insulin Detemir 100 units/ml Vial (Levemir) SC SCH (10:47)
[2016-12-16] MEDS: Vancomycin 1gm in NS 250ml 1 GM/250 ML BAG IVPB SCH (10:51)
[2016-12-16] MEDS: levETIRAcetam 500mg IVPB 500 MG/100 ML BAG IVPB SCH ×2 (10:51→22:01)
--- NOTE | 2016-12-16 13:12 | PN ---
DATE: 12/16/2016 CYCLE REPAIRER NOTE SUBJECTIVE: The patient is resting in bed, awake and alert, answering all question appropriately. He has O2 via nasal cannula and seems to be very comfortable. The patient is on Cardene for his blood pressure and continues with IV fluids as well. He has no complaints of pain, with distress, no shortness of breath, cough, wheezing or chest congestion. No abdominal pain or diarrhea. PHYSICAL EXAMINATION: VITAL SIGNS: Temperature is 99, pulse is 69, blood pressure 138/88, respiratory rate is 16. HEENT: Head is atraumatic and normocephalic. Eyes are reactive to light. Ears, nose, and throat seem to be within normal limits. NECK: Supple. No JVD. No thyroid enlargement. No lymph nodes. HEART: Has a regular rate and rhythm. Normal S1 and S2. LUNGS: Reveal good breath sounds bilaterally. ABDOMEN: Soft and nontender. Normal bowel sounds. No organomegaly noted. GENITALIA: Deferred. RECTAL: Deferred. MUSCULOSKELETAL: No joint deformities. EXTREMITIES: Reveal no significant edema. NEUROLOGIC: The patient does have some weakness in the left upper extremity. LABORATORY DATA: Revealed white count of 12.3, hemoglobin of 10.0, hematocrit 27.8 with platelets of 268,000. Sodium is 146, potassium 4.1, chloride 119, CO2 of 16 with a BUN of 30, creatinine of 1.9, and glucose of 119. The patient still has elevated troponin with 0.42. CT of the head reveals subacute hemorrhagic infarct right frontoparietal with adjacent bland infarct in the superior right parietal lobe as well as multifocal small infarcts in the right frontal lobe. No appropriate interval change and extant of the focal hemorrhage, no herniated. IMPRESSION: The patient has subacute cerebral hemorrhage. He also had a history of diabetes and presented with diabetic ketoacidosis, which has resolved. The patient has a history of hypertension. As far as our plan, we will continue with Cardene drip to regulate the patient's blood pressure as well as the IV fluids. He is on O2 via nasal cannula. He continues to get scheduled neuro checks and he will also continue his Keppra as well as, his Levemir and his Protonix. We will continue to treat aggressively and watch closely along with the other consultants and the primary care doctor. Yao Hines MD
--- NOTE | 2016-12-16 15:30 | CP.PCM.PN ---
Subjective - Date & Time of Evaluation Date of Evaluation: 12/16/16 Time of Evaluation: 15:27 - Subjective Subjective: Mr. Prince was seen and examined today in the ICU. He complained that he was bored and said that he would like to go home. Otherwise, he had no complains. He did not have headache, nausea, vomiting or new weakness. There were no acute events overnight. Objective - Vital Signs/Intake and Output Vital Signs (last 24 hours): Temp Pulse Resp BP Pulse Ox 98.4 F 55 L 14 137/60 85 L 12/16/16 12:00 12/16/16 15:23 12/16/16 15:23 12/16/16 15:09 12/16/16 12:00 Intake and Output: 12/16/16 12/16/16 06:59 18:59 Intake Total 2600 Output Total 1200 Balance 1400 - Medications Medications: Current Medications Acetaminophen (Tylenol 325mg Tab) 650 mg PO Q6H PRN PRN Reason: Fever >100.4 F Last Admin: 12/15/16 11:14 Dose: 650 mg Docusate Sodium (Colace) 100 mg PO DAILY [facility] Last Admin: 12/16/16 10:50 Dose: 100 mg Sodium Chloride (Sodium Chloride 0.9%) 1,000 mls @ 100 mls/hr IV .Q10H [facility] Last Admin: 12/16/16 04:07 Dose: 100 mls/hr Vancomycin HCl (Vancomycin 1gm) 1 gm in 250 mls @ 167 mls/hr IVPB DAILY [facility] PRN Reason: Protocol Last Admin: 12/16/16 10:51 Dose: 167 mls/hr Nicardipine HCl (Cardene Iv Premix) 20 mg in 200 mls @ 50 mls/hr IV .Q4H PRN; Protocol; 5 MG/HR PRN Reason: TITRATE PER MD ORDER Last Admin: 12/16/16 07:34 Dose: 5 mg/hr, 50 mls/hr Levetiracetam (Keppra 500mg Ivpb) 500 mg in 100 mls @ 460 mls/hr IVPB Q12 [facility] Last Admin: 12/16/16 10:51 Dose: 460 mls/hr Insulin Detemir (Levemir) 15 unit SC DAILY [facility] Last Admin: 12/16/16 10:47 Dose: 15 unit Insulin Human Regular (Humulin R Med) 0 units SC Q6 [facility] PRN Reason: Protocol Last Admin: 12/16/16 06:36 Dose: Not Given Metoprolol Tartrate (Lopressor) 25 mg PO BID [facility] Last Admin: 12/16/16 10:50 Dose: 25 mg Nitroglycerin (Nitro-Bid 2% Oint) 0.5 ea TOP Q6H [facility] Last Admin: 12/16/16 06:37 Dose: 0.5 ea Pantoprazole Sodium (Protonix Ec Tab) 40 mg PO 0600 [facility] Last Admin: 12/16/16 06:38 Dose: 40 mg - Labs Labs: 12/16/16 05:15 12/16/16 05:15 PT 11.4 Seconds (9.9-11.8) 12/14/16 10:36 INR 1.06 (0.93-1.08) 12/14/16 10:36 APTT 23.1 Seconds (23.7-30.8) L 12/14/16 10:36 - Neurological Exam Additional comments: Neurologically unchanged compared with previous exam with left side weakness ( antigravity) and neglect. Assessment and Plan (1) Intraparenchymal hematoma of brain Assessment & Plan: Continue BP control and monitor serum sodium, glucose and other metabolic derangements. Treat fevers aggressively if they should arise. May repeat CT head tomorrow and if stable, transfer to medical floor for further management. Continue daily PT/OT. DVT Px with SCD. Status: Acute
[2016-12-17] MEDS: Nitroglycerin 2% Ointment Foilpak UD TOP SCH ×2 (01:15→06:19)
[2016-12-17] MEDS: Sodium Chloride 0.9% 1,000 ML IV SCH (03:20)
[2016-12-17] MEDS: Pantoprazole 40 mg EC Tab PO SCH (06:19)
[2016-12-17 06:51] LABS: BASO # 0.03 K/mm3 (0.0-2.0); BASO % 0.3 % (0.0-3.0); EOS # 0.1 (0.0-0.7); EOS % 1.3 % (1.5-5.0); GRAN # 8.16 (1.4-6.5); GRAN % 78.1 % (50.0-68.0); HEMATOCRIT 29.1 % (42.0-52.0); LYMPH # 1.4 (1.2-3.4); LYMPH % 13.8 % (22.0-35.0); MEAN CELL VOLUME 80.4 fl (80.0-105.0); MEAN CORPUSCULAR HGB CONC 36.1 g/dl (31.0-37.0); MEAN PLATELET VOLUME 10.5 fl (7.0-11.0); MONO # 0.7 (0.1-0.6); MONO % 6.5 % (1.0-6.0); RED CELL DISTRIBUTION WIDTH 14.5 % (11.5-14.5); WHITE BLOOD COUNT 10.5 10^3/ul (4.5-11.0)
--- NOTE | 2016-12-17 06:53 | CON ---
DATE: 12/16/2016 CARDIOLOGY CONSULTATION COVERING: Dr. Lamont Azul. REASON FOR CONSULTATION: Positive troponin, admitted with a DKA, intracranial bleed, leukocytosis, possible non-STEMI. Patient denies any chest pain. Denies any shortness of breath. Denies any palpitation. OBJECTIVE: GENERAL: The patient is lying flat on the bed, not in apparent distress. VITAL SIGNS: Temperature afebrile, heart rate 64, blood pressure 125/60. HEENT: PERRLA. Extraocular movements intact. NECK: Supple. No carotid bruit or thyromegaly. CHEST: Clear to auscultation. HEART: S1 and S2 regular. ABDOMEN: Soft. EXTREMITIES: Clubbing and cyanosis negative. LABORATORY DATA: WBC 12.2, hemoglobin 10.0, hematocrit 27.8, platelet count 268. Chemistry shows sodium 146, potassium 4.0, chloride 119, carbon dioxide 16, anion gap of 15, BUN 30, creatinine 1.9. Troponin 0.42. IMPRESSION: A 66-year-old male with a past medical history significant for diabetes, hypertension, hyperlipidemia, coronary artery disease, who fell down, brought here and found to be in diabetic ketoacidosis, septic, intracranial bleed, and positive troponin. Denies any chest pain. Maximum troponin is 0.42. In phase of renal insufficiency, the creatinine clearance of 30 mL. Maximum troponin is 1.05 with creatinine clearance of 30 mL. Denies any chest pain. Last echo on 12/14/2016 shows ejection fraction of 35% to 40%, trace aortic regurgitation, mild mitral regurgitation, and trace tricuspid regurgitation. RV systolic pressure 18, no pericardial effusion noted, dated 12/15/2011. History of fall, leukocytosis, diabetic, ketoacidosis, non-ST segment myocardial infarction possible. RECOMMENDATIONS: We will continue beta agnieszka and nitrates. Continue CPK, troponin trending down. Not a candidate for anticoagulation. Not a candidate for aspirin because of intracerebral bleed, ICB. Not a candidate to go to the field laborer as the patient is asymptomatic and also has intracerebral bleed, so we will treat medically for now. Currently, the patient is asymptomatic. When okayed from neurologist, we can start low dose baby aspirin probably after a couple of days when the risk of further bleeding intracranially is minimal. Discussed with Dr. Baca. Discussed with patient. Mild renal function, avoid nephrotoxic medication. Aggressively control sugar, we will follow with you and transfer care tomorrow to Dr. Lamont Azul. The patient is not on aspirin, not on Plavix, not on Lovenox because as mentioned patient has intracerebral bleed for the above obvious reason. We will get lipid profile, TSH, hemoglobin A1c in the morning. Thank you Dr. Baca for providing the opportunity in taking care of the patient, Maco Prince, and as mentioned, we will transfer care tomorrow to Dr. Azul. Ginger Rodriguez MD
[2016-12-17 06:56] LABS: ALB/GLOB RATIO 1.3 (1.1-1.8); BILIRUBIN,TOTAL 0.6 mg/dL (0.2-1.3); MAGNESIUM 1.6 mg/dL (1.7-2.2); PHOSPHOROUS 2.8 mg/dL (2.5-4.5); POTASSIUM 4.2 mmol/L (3.6-5.0); TOTAL PROTEIN 6.7 g/dL (5.8-8.3)
[2016-12-17 07:17] LABS: TROPONIN I 0.29 ng/mL
[2016-12-17 08:09] LABS: CHOLESTEROL 96 mg/dL (130-200)
[2016-12-17] MEDS: Insulin Reg-MEDIUM-Coverage SC SCH ×4 (08:21→21:07)
[2016-12-17] MEDS: Insulin Detemir 100 units/ml Vial (Levemir) SC SCH ×2 (09:53→10:03)
[2016-12-17] MEDS: Vancomycin 1gm in NS 250ml 1 GM/250 ML BAG IVPB SCH (09:54)
[2016-12-17] MEDS: levETIRAcetam 500mg IVPB 500 MG/100 ML BAG IVPB SCH (09:59)
[2016-12-17] MEDS ORDERED: Magnesium Sulfate 2 GM in Sodium Chloride 0.9% 100 ML IVPB ONE (11:07)
--- NOTE | 2016-12-17 15:12 | CP.PCM.PN ---
Subjective - Date & Time of Evaluation Date of Evaluation: 12/17/16 Time of Evaluation: 09:00 - Subjective Subjective: Patient seen and examined. Reports he wants to go home, because he has financial obligations Currently denies any major complaints. Passed speech and swallow, off insulin drip, repeat CTH stable, no progression of R parietal bleed. Objective - Vital Signs/Intake and Output Vital Signs (last 24 hours): Temp Pulse Resp BP Pulse Ox 98.8 F 47 L 14 152/60 H 99 12/17/16 12:00 12/17/16 14:50 12/17/16 14:50 12/17/16 14:40 12/17/16 14:50 Intake and Output: 12/17/16 12/17/16 06:59 18:59 Intake Total 1350 Output Total 500 Balance 850 - Medications Medications: Current Medications Acetaminophen (Tylenol 325mg Tab) 650 mg PO Q6H PRN PRN Reason: Fever >100.4 F Last Admin: 12/15/16 11:14 Dose: 650 mg Aspirin (Aspirin Chewable) 81 mg PO DAILY [facility] Last Admin: 12/17/16 12:54 Dose: 81 mg Docusate Sodium (Colace) 100 mg PO DAILY [facility] Last Admin: 12/17/16 09:53 Dose: 100 mg Insulin Detemir (Levemir) 15 unit SC DAILY [facility] Last Admin: 12/17/16 10:03 Dose: Not Given Insulin Human Regular (Humulin R Med) 0 units SC ACHS [facility] PRN Reason: Protocol Last Admin: 12/17/16 12:15 Dose: 1 units Isosorbide Mononitrate (Imdur) 60 mg PO DAILY [facility] Last Admin: 12/17/16 10:17 Dose: 60 mg Levetiracetam (Keppra) 500 mg PO BID [facility] Metoprolol Tartrate (Lopressor) 25 mg PO BID [facility] Last Admin: 12/17/16 09:58 Dose: 25 mg Pantoprazole Sodium (Protonix Ec Tab) 40 mg PO 0600 [facility] Last Admin: 12/17/16 06:19 Dose: 40 mg - Labs Labs: 12/17/16 06:20 12/17/16 06:20 PT 11.4 Seconds (9.9-11.8) 12/14/16 10:36 INR 1.06 (0.93-1.08) 12/14/16 10:36 APTT 23.1 Seconds (23.7-30.8) L 12/14/16 10:36 - Constitutional Appears: Well, Non-toxic - Head Exam Head Exam: ATRAUMATIC, NORMAL INSPECTION - Eye Exam Eye Exam: EOMI, Normal appearance - Respiratory Exam Respiratory Exam: Clear to Ausculation Bilateral, NORMAL BREATHING PATTERN - Cardiovascular Exam Cardiovascular Exam: +S1, +S2 - GI/Abdominal Exam GI & Abdominal Exam: Soft, Normal Bowel Sounds - Extremities Exam Extremities Exam: Normal Inspection - Neurological Exam Neurological Exam: CN II-XII Intact, Oriented x3 Assessment and Plan - Assessment and Plan (Free Text) Assessment: 66yo male a/w ICH ICH, R Parietal, stable Hyperglycemia, DM Dehydration, resolved Leukocytosis, resolved Anemia CKD, stable HTN - currently afebrile, HD stable, comfortable, awake, answers appropriately - on exam has mild LUE/LLE weakness - CT head noted for R parietal ICH, which is stable on repeat CT head - Off insulin drip, FS well controlled, patient is OOB to chair Recommend - q4hr Neuro checks - neurology follow up - Keep SBP<140, has been off Cardene drip - Seizure prophylaxis as per neurology - Antipyretics PRN, glycemic control, Na>140 - Levemir, and sliding scale - monitor electrolytes, Keep K>4, Mg>2 - DC IVF - DC antibiotics, afebrile, HD stable, cultures negative, procalcitonin negative - DVT ppx, SCDs - GI PPx, Pepcid PO - OK to start ASA as per neurology - troponin downtrending, ECHO noted, cardiology following - transfer to telemetry, stable
--- NOTE | 2016-12-17 16:21 | PN ---
DATE: 12/16/2016 SUBJECTIVE: The patient is seen and examined on 12/16/2016 on the bedside, awake, alert, answering all questions. Getting oxygen with the nasal canula, comfortable, no complaints. Patient is not a good historian. No shortness of breath. No coughing. No wheezing. No nausea, vomiting or diarrhea. No hematuria or hematochezia. PHYSICAL EXAMINATION: VITAL SIGNS: Temperature 99, pulse 59, blood pressure 138/88 and respiratory rate 16. HEENT: Head is normocephalic and atraumatic. Eyes, PERRLA. Extraocular muscles intact. Conjunctivae clear. Nose patent. Mucous membrane moist. NECK: Supple. No carotid bruits, JVD, or thyromegaly. CHEST: Bilaterally symmetrical. HEART: S1 and S2 positive. LUNGS: Good breath sounds bilaterally, clear to auscultation. ABDOMEN: Soft. No organomegaly. EXTREMITIES: No edema. No cyanosis. NEUROLOGICAL: The patient is awake and alert. Moving all 4 extremities, but has some weakness in the left upper extremity. LABORATORY DATA: White blood cell is 12.3, hemoglobin 10.0, hematocrit 27.8, platelets 258. Sodium 146, potassium 4.1, BUN of 30 and creatinine of 1.9. CAT scan of the head revealed subacute hemorrhagic infarct right frontoparietal with adjacent bland infarct in the superior right parietal lobe as well as multifocal small infarct in the right frontal lobe. MEDICATIONS: Reviewed by me. ASSESSMENT AND PLAN: Mr. Maco Prince is 66 years old male with subacute cerebral hemorrhage, patient is legally blind, has history of uncontrolled diabetes mellitus, renal insufficiency, diabetic ketoacidosis which has resolved, history of anemia,getting IV fluid, oxygen with nasal canula, getting neuro check, on Keppra as well as Levemir and Protonix. Patient is a FULL CODE. Neurologist, Dr. Tim Mahoney is on the case. Continue blood pressure control. Monitoring serum electrolytes, especially sugar. We will repeat CAT scan of head for the stability of the infraction. Physical therapy, occupational therapy. Gastrointestinal and deep venous thrombosis prophylaxis. We will follow up. Cindy Baca MD [facility] # [id number]
[2016-12-17] MEDS: levETIRAcetam 500 mg/5ml UD cups PO SCH (17:00)
--- NOTE | 2016-12-17 21:15 | PN ---
CARDIOLOGY FOLLOWUP DATE: 12/17/2016 SUBJECTIVE: The patient is in bed, without shortness of breath and without chest pain. PHYSICAL EXAMINATION: VITAL SIGNS: Blood pressure 147/59 off Cardene, heart rate in the 60s. NECK: Negative JVD. LUNGS: Without rales. HEART: Reveals S1 and S2. EXTREMITIES: Without edema. LABORATORY DATA: Hemoglobin is 10.5. Chemistries, troponin is 0.29 with the peak 1.05. IMPRESSION: 1. Rsk-[id number] myocardial infarction. 2. Diabetic ketoacidosis. 3. Intracerebral bleed. 4. Hypertension. 5. Diabetes mellitus. PLAN: Given these findings, the patient's blood pressure is currently stable. The patient is currently on p.o. antihypertensive medications. The patient can be transferred to Telemetry. There are no plans for invasive cardiac procedures at this time given his recent intracranial bleed. We will continue the beta-blockers. Lamont Azul MD
--- NOTE | 2016-12-18 05:08 | PN ---
SUBJECTIVE: The patient was seen and examined on the bedside, in the unit, wanted to go home because he said he wanted to go on his own bed, wanted his home back, but I educated him that he lives alone and he needs 24-hour service. He understands. Got speech evaluation, passed the test. Off the insulin drip. Repeat CAT scan shows stable, no progression of right parietal bleed. No nausea, vomiting, or diarrhea. No hematuria or hematochezia. No swelling of the legs. PHYSICAL EXAMINATION: VITAL SIGNS: Temperature 98.8, pulse 47, respiratory rate 14, blood pressure 152/68, pulse oximetry 99%. HEENT: Head normocephalic and atraumatic. Eyes: PERRLA. Extraocular muscles are intact. Conjunctivae clear. Nose patent. NECK: Supple. No carotid bruits. No JVD or thyromegaly. CHEST: Bilaterally symmetrical. HEART: S1 and S2 positive. LUNGS: Clear to auscultation. ABDOMEN: Soft. Bowel sounds positive. No organomegaly. EXTREMITIES: No edema. No cyanosis. NEUROLOGIC: The patient is awake and alert. Moving all four extremities except the left upper extremity. LABORATORY DATA: White blood cells 7.5, hemoglobin 10.5, hematocrit 29.1, and platelets 282. Sodium 147, potassium 4.2, BUN 20, creatinine 1.8, and glucose 118. ASSESSMENT AND PLAN: The patient is a 66-year-old male with anemia; renal insufficiency, on hemodialysis; hyperglycemia, maybe blind; uncontrolled diabetes mellitus; has right parietal lobe bleeding, stable; dehydration, resolved; leukocytosis, resolved; chronic kidney disease, stable; and hypertension. The patient has mild left upper and lower extremity weakness. CT scan of the head noted. Off insulin drip, fingerstick remains controlled. The patient is out of bed and chair, again a q. 4 hour neuro check. Keep systolic blood pressure less than 140, off the Cardene drip. Seizure prophylaxis, antipyretic p.r.n., and glycemic control, insulin more than 40, Levemir. Discontinue antibiotics, afebrile, and hemodynamically stable. Deep vein thrombosis and gastrointestinal prophylaxis. Repeat labs. We will follow up. Cindy Baca MD
--- NOTE | 2016-12-18 06:10 | PN ---
DATE: 12/17/2016 REFERRING PHYSICIAN: Dr. Baca. SUBJECTIVE: He is lying in the bed, frustrated, wants to go home. Denies any headache. No nausea. No vomiting. No diarrhea. No leg pain. No leg swelling. PHYSICAL EXAMINATION: GENERAL: No acute distress. VITAL SIGNS: Temperature 98, heart rate 64, respiratory rate is 20 and blood pressure 148/71. HEENT: Moist mucous membranes. Crowded airway. Mallampati score is 4. NECK: Supple. No JVD. LUNGS: Has fair airflow with rhonchi. HEART: S1 and S2. ABDOMEN: Soft and nontender. No organomegaly. EXTREMITIES: There is no edema. NEUROLOGIC: Sleepy, but was able to follow simple command. MEDICATIONS: He is on aspirin 81 mg daily, Colace 100 mg daily, insulin coverage, Imdur 60 mg daily, Keppra 500 mg twice a day, Levemir 50 units subQ daily, metoprolol tartarate 25 mg twice a day, Protonix 40 mg daily and Tylenol p.r.n. basis. LABORATORY DATA: Shows hemoglobin 10.5, hematocrit 29.1, WBC 10.5, platelet count is 282. Sodium 147, potassium 4.2, chloride 117, bicarbonate 18, BUN 28, creatinine 1.8, glucose 118, hemoglobin A1c 6.5, calcium is 9.0, phosphorous 2.8, magnesium 1.6, AST 50, ALT 34, alk phos is 97, CPK-MB is 2.4, troponin 1.29, albumin is 3.8 and cholesterol 96. TSH 1.26. Microbiology; blood culture has been negative. IMPRESSION AND PLAN: Intracranial bleed, also with ischemic stroke, probably vasoconstriction; diabetes; chronic obstructive lung disease; coronary artery disease; anemia; peripheral vascular disease; may have sleep apnea syndrome. Spoke to the patient in detail, discussed his disease and his natural history of disease. Encouraged him to use BiPAP. Spoke to nursing staff. The patient may be transferred out of the intensive care unit. Neurology followup. Ginger Cao MD
[2016-12-18] MEDS: Pantoprazole 40 mg EC Tab PO SCH (06:19)
[2016-12-18] MEDS: Insulin Reg-MEDIUM-Coverage SC SCH ×4 (07:52→21:48)
[2016-12-18] MEDS: Insulin Detemir 100 units/ml Vial (Levemir) SC SCH (09:55)
[2016-12-18] MEDS: levETIRAcetam 500 mg/5ml UD cups PO SCH ×2 (09:56→17:44)
--- NOTE | 2016-12-18 22:18 | PN ---
DATE: 12/18/2016 SUBJECTIVE: The patient is in bed, without shortness of breath. No apparent seizures have occurred. OBJECTIVE: VITAL SIGNS: Blood pressure 168/72, heart rate is in this in the 60s. NECK: Negative JVD. LUNGS: Without rales. HEART: S1, S2. Extremities: Without edema. LABORATORY DATA: Laboratories revealed a glucose of 149. IMPRESSION: 1. Status post seizure activity. 2. Recent wyk-LJ-zdcitxsin myocardial infarction. 3. Diabetic ketoacidosis. 4. Intracerebral bleed. 5. Hypertension. 6. Diabetes mellitus. PLAN: Given these findings, the patient's non-STEMI is well-controlled with medication. Given the intracranial bleed, no plans for invasive cardiac procedures in the near future. Lamnot Azul MD
[2016-12-19 01:42] VITALS: RESP 20
--- NOTE | 2016-12-19 02:55 | PN ---
PULMONARY PROGRESS NOTE DATE: 12/18/2016 REFERRING PHYSICIAN: Dr. Baca SUBJECTIVE: The patient is sitting at the side of the bed, having dinner, frustrated and wants to go home. He would like to sit outside in the hallway. No headache. No rhinitis. No nausea, vomiting or diarrhea. No leg pain or leg swelling. PHYSICAL EXAMINATION GENERAL: No acute distress. VITAL SIGNS: Temperature 98, heart rate 50, respiratory rate is 20 and blood pressure 168/72. HEENT: Moist mucous membranes. Crowded airway. Mallampati score is 4. NECK: Supple. No JVD. LUNGS: Fair airflow with few rhonchi. HEART: S1 and S2. ABDOMEN: Soft and nontender. No organomegaly. EXTREMITIES: There is no edema. NEUROLOGIC: Awake, alert and follows simple commands.. MEDICATIONS: He is on aspirin 81 mg daily, Colace 100 mg daily, insulin coverage, Imdur 60 mg daily, Keppra 500 mg twice a day, Levemir 50 units subcutaneous daily, metoprolol tartarate 25 mg twice a day, Protonix 40 mg daily and Tylenol p.r.n. basis. LABORATORY DATA: Shows blood sugar this morning 125. Microbiology; blood culture has been negative. ASSESSMENT AND PLAN: Intracranial bleed also with ischemic stroke, diabetes; chronic obstructive lung disease; coronary artery disease; anemia; peripheral vascular disease; may have sleep apnea syndrome. Spoke to nursing staff. Also spoke to the patient in detail. Risk and benefits of going home discussed, the patient is willing to stay. Will get physical therapy, fall precaution, encouraged CPAP use. Being followed by Neurology. We will follow with you. Ginger Cao MD
[2016-12-19] MEDS: Pantoprazole 40 mg EC Tab PO SCH (05:15)
[2016-12-19 06:53] LABS: ALB/GLOB RATIO 1.3 (1.1-1.8); BILIRUBIN,TOTAL 0.7 mg/dL (0.2-1.3); MAGNESIUM 1.8 mg/dL (1.7-2.2); POTASSIUM 3.4 mmol/L (3.6-5.0); TOTAL PROTEIN 6.7 g/dL (5.8-8.3)
[2016-12-19 07:11] LABS: BASO # 0.04 K/mm3 (0.0-2.0); BASO % 0.5 % (0.0-3.0); EOS # 0.2 (0.0-0.7); EOS % 2.9 % (1.5-5.0); GRAN # 4.92 (1.4-6.5); GRAN % 64.8 % (50.0-68.0); HEMATOCRIT 29.1 % (42.0-52.0); LYMPH # 1.7 (1.2-3.4); LYMPH % 22.7 % (22.0-35.0); MEAN CELL VOLUME 78.9 fl (80.0-105.0); MEAN CORPUSCULAR HGB CONC 36.8 g/dl (31.0-37.0); MEAN PLATELET VOLUME 10.7 fl (7.0-11.0); MONO # 0.7 (0.1-0.6); MONO % 9.1 % (1.0-6.0); RED CELL DISTRIBUTION WIDTH 14.1 % (11.5-14.5); WHITE BLOOD COUNT 7.6 10^3/ul (4.5-11.0)
[2016-12-19] MEDS: Insulin Reg-MEDIUM-Coverage SC SCH ×3 (07:50→16:50)
--- NOTE | 2016-12-19 08:18 | PN ---
DATE: 12/18/2016 SUBJECTIVE: The patient is 66 years old male. He is doing better, restless, want to go home. No headache. No nausea, vomiting, or diarrhea. No hematuria or hematochezia. The patient is blind. He is not able to take care of himself, but want to take care of himself. We will call psych consult to evaluate the patient's competency. PHYSICAL EXAMINATION VITAL SIGNS: Temperature 98, heart rate 50, respiratory rate 20, blood pressure 158/70. HEENT: Head; normocephalic and atraumatic. Eyes; extraocular muscles intact. Conjunctivae clear. Nose patent. Mucous membranes moist. NECK: Supple. No carotid bruits, JVD, or thyromegaly. LUNGS: Fair air flow with few rhonchi. HEART: S1 and S2 positive. ABDOMEN: Soft and nontender. No organomegaly. EXTREMITIES: No edema, no cyanosis. NEUROLOGIC: The patient is awake and alert. Follows simple commands. MEDICATIONS: Aspirin, Colace, insulin, Imdur, Keppra, Levemir, metoprolol, Protonix, and Tylenol. LABORATORY DATA: We do not have recent labs today, but I reviewed old labs. Blood sugar is 125. ASSESSMENT AND PLAN: The patient is a 66 years old male with multiple medical problems; very noncompliant; diabetes mellitus, uncontrolled; intracranial bleeding with ischemic stroke; chronic obstructive lung disease; coronary artery disease; anemia; peripheral vascular disease; sleep apnea syndrome. At this time, came with a diabetic ketoacidosis. Out of bed, physical therapy, gastrointestinal/deep vein thrombosis prophylaxis. The patient wants to go home. Length of time education done. I explained to him that he cannot discharge himself right now. He needs more days' hospitalization and even rehab. We will follow up. Cindy Baca MD
[2016-12-19] MEDS: levETIRAcetam 500 mg/5ml UD cups PO SCH ×2 (09:30→18:01)
[2016-12-19] MEDS: Insulin Detemir 100 units/ml Vial (Levemir) SC SCH (09:30)
[2016-12-19 13:35] VITALS: PULSE 57
[2016-12-19] MEDS ORDERED: Sodium Chloride 0.9% 1,000 ML IV SCH (14:02)
[2016-12-19 16:16] VITALS: BP 105/47; TEMP 97.9; O2SAT 97
--- NOTE | 2016-12-19 17:37 | PN ---
DATE: 12/19/2016 SUBJECTIVE: The patient is sitting in a chair without angina. PHYSICAL EXAMINATION: VITAL SIGNS: Stable. NECK: Negative JVD. LUNGS: Without rales. HEART: S1, S2. EXTREMITIES: Without edema. LABORATORY DATA: Noted. IMPRESSION: 1. Status post intracerebral bleed. 2. Recent mew-JX-zcydruvdv myocardial infarction. 3. Coronary artery disease. 4. Obesity. 5. Diabetes mellitus. PLAN: Given these findings; given the recent non-STEMI and the intracerebral bleed, we will continue on medical therapy which include beta blockers as well as aspirin. We will add Lipitor to his regimen. Lamont Azul MD
--- NOTE | 2016-12-19 20:32 | PN ---
PULMONARY PROGRESS NOTE DATE: 12/19/2016 REFERRING PHYSICIAN: Cindy Baca MD SUBJECTIVE: He is lying in the bed, head at 45 degree. Feels okay. No headache. No rhinitis. No nausea. No vomiting. No leg pain or leg swelling. OBJECTIVE: GENERAL: No acute distress. VITAL SIGNS: Temperature 98,heart rate is 64, respiratory rate is 20, blood pressure 157/77, pulse ox 99% on nasal cannula. HEENT: Moist mucous membranes. Crowded airway. Mallampati score is 4. NECK: Supple. No JVD. LUNGS: Fair airflow with few rhonchi. HEART: S1 and S2. ABDOMEN: Soft, nontender. No organomegaly. EXTREMITIES: No edema. NEUROLOGIC: Sleepy, but was able to follow simple commands. MEDICATIONS: He is on aspirin 81 mg daily, Ativan 0.25 mg twice a day p.r.n., Colace 100 mg daily, insulin coverage, Imdur 60 mg daily, Keppra 500 mg twice a day, Levemir 50 units subcutaneous daily, Lipitor 20 mg daily, metoprolol tartarate 25 mg twice a day, Protonix 40 mg daily, IV fluid normal saline 75 mL per hour, Tylenol p.r.n. basis. LABORATORY DATA: Shows hemoglobin is 10.7, hematocrit 29.1, WBC 7.6, platelet count 313. Sodium 146, potassium 2.4, chloride 113, bicarbonate 19, BUN 28, creatinine 1.7, glucose 115, calcium 9.0, phosphorous 3.0, magnesium 1.8, AST 54, ALT 30, alkaline phosphatase is 106, albumin is 3.7. Microbiology: Blood culture has been negative. IMPRESSION AND PLAN: Intracranial bleed, also with ischemic stroke, chronic obstructive lung disease; coronary artery disease; anemia; peripheral vascular disease; may have sleep apnea syndrome. Encouraged continuous positive airway pressure therapy us, keep head at 45 degrees, fall precaution, get physical therapy, may benefit from Trauma Intensive Care Unit type services, will need a director social service consult for home safety and we will follow with you. Ginger Cao MD [facility] # [id number]
--- NOTE | 2016-12-20 01:24 | CON ---
HISTORY OF PRESENT ILLNESS: The patient is a 66-year-old male with multiple medical problems. The patient was admitted on the medical side status post an unwitnessed fall. The patient was found to have right frontoparietal parenchymal hemorrhages. Psych consult was called for evaluation of depressive symptoms. The patient was seen and examined today. The patient presented to be alert. The patient obviously has disinhibitions; for example, earlier the patient said that he is in an aggressive mood and he wants to like spank people, but based on the presentation, the patient did not act on that thought and does not have any aggression or agitation. This commercial insurance underwriter evaluated the patient with nurse practitioner. The patient presented to be alert. The patient said that earlier he had feeling that he wants to spank people. The patient also made comment that he wants to put this commercial insurance underwriter in a kneeling position and spank her, but besides that, the patient was not aggressive, was saying random things, and thought process was circumstantial. The patient denied being depressed, but the patient was making statements that bad news on the TV about politics make him feel very down. The patient adamantly denied thoughts of harming himself or others, denies intent or plan, denies hearing voices, denies seeing things. The patient also denied paranoid ideations. The patient does not present to be psychotic. The patient denied feeling anxious. Reported to have fair appetite and sleep. As per collateral information from the nursing staff, the patient did not like medication Keppra and was complaining that it makes him feel sick, but it is up to the neurologist to change that medication. The patient denied history of being admitted to the psychiatric inpatient unit. The patient denied history of suicidal attempts. PHYSICAL EXAMINATION: VITAL SIGNS: Seem to be stable. Temperature 97.6, pulse is 64, blood pressure 157/77, respirations 26, oxygen saturation is 99%. MEDICATIONS: Reviewed. Tylenol, aspirin, Colace, Levemir, Humalog, Imdur, Keppra, Lopressor, Protonix. LABORATORY DATA: Reviewed. Chemistry showed potassium is 3.4, chloride is 113. Urinalysis showed urine blood moderate. Notes from neurologist reviewed, storekeeper helper reviewed, manager gas reviewed. Head CT scan was also reviewed, subacute hemorrhagic infarct in the right frontoparietal lobe was found. MENTAL STATUS EXAMINATION: The patient obviously has disinhibitions. The patient was saying random things about spanking people, but no physical aggression. Fair eye contact. Speech was of normal rate, tone, quality, and quantity. Mood was described as <I,m not depressed.L Affect was constricted. Thought process was circumstantial. Thought content, the patient denied visual, auditory, or tactile hallucinations. Denies paranoid ideation. The patient denied thoughts of harming himself or others. Denied intent or plan. Insight and judgment seem to be fair. Impulses are well controlled. IMPRESSION: Rule out mood disorder due to general medical condition. Rule out disinhibition syndrome secondary to hemorrhage to the right frontoparietal area. The patient had hemorrhagic infarct. PLAN: Neurology followup as per medical team. This commercial insurance underwriter does not feel that the patient is a danger to self or others. The patient does not have any physical aggression or agitation. The patient could say random things; for example, to spank people, but not act on the thoughts. This commercial insurance underwriter will follow up on this patient and advise accordingly. Case was discussed with nurse practitioner. Physical therapy recommended, subacute rehab or TCU. This commercial insurance underwriter also would not recommend any antipsychotic medication or serotonin reuptake inhibitors because it could prolong bleeding and antipsychotic medication could give risk of strokes. If the patient needs to be medicated, benzodiazepine is the medication of choice. Thank you very much for letting me to participate in care of your patient. Should you have any question, give me a call back. Jeny Mallory MD
--- NOTE | 2016-12-20 08:35 | CP.PCM.PCO ---
Physician Communication Note - Physician Communication Note Physician Communication Note: pt was discharged to the [facility]
--- NOTE | 2017-01-08 08:43 | DS ---
CHIEF COMPLAINT: Fall, trauma. HISTORY OF PRESENT ILLNESS: Mr. Maco Prince was a 66-year-old male, very, very noncompliant, with a history of hypertension, diabetes mellitus, who came to the emergency department status post unwitnessed fall. The patient was found on the floor in the kitchen by the home health aide. On the day of admission, the patient was very poor historian, unsure how he fell and what happened to him and how long he was on the floor. The patient was unsure if he lost consciousness. His blood sugar is always elevated. No fever or chills. We admitted the patient and did CAT scan of the head, chest x-rays, and repeat CAT scan. Seen by the psychiatrist, Dr. Jeny Mallory; compression molding machine tender, Dr. Cao; mail handler equipment operator, Dr. Lamont Azul. Seen by stroke specialist, Dr. Tim Mahoney; neurosurgeon, Dr. Rickey Cantrell. The patient improved. The patient was put in the unit, transferred to the floor, improved, sent to [facility] with too much agitation. Otherwise, he did not want to go to [facility]. Every day, he was complaining that he wanted to go home, but he was not able to do his ADL and his discharge was not safe. Education done and sent to [facility]. We will continue treatment there. PAST MEDICAL HISTORY: Coronary artery disease; congestive heart failure; hypertension; cardiac stenting 6 times in the heart; COPD; pneumonia; legally blind; history of cataract; renal insufficiency; diabetes mellitus type 2, needs insulin but he does not want insulin; amputated toes; anxiety; depression. FAMILY HISTORY: Father and mother noncontributory. As per him, he does not have any family. HABITS: No smoking. No drugs. No ethanol. ALLERGIES: THE PATIENT IS ALLERGIC TO PENICILLIN. REVIEW OF SYSTEMS: The patient was seen and examined on the bedside on 12/19/2016. No nausea, vomiting, diarrhea. He feels better. No headache. No rhinitis. No hematuria. No hematochezia. No swelling of the legs. PHYSICAL EXAMINATION: VITAL SIGNS: Temperature 98, heart rate 64, respiratory rate 20, blood pressure 157/77, and pulse oxymetry 99% on nasal cannula. HEENT: Head is normocephalic and atraumatic. Eyes, PERRLA. Extraocular muscles intact. Conjunctivae clear. Nose patent. Mucous membranes moist. NECK: Supple. No carotid bruit. No JVD or thyromegaly. CHEST: Bilaterally symmetrical. HEART: S1 and S2 positive. LUNGS: Clear to auscultation. ABDOMEN: Soft. Bowel sounds positive. No organomegaly. EXTREMITIES: No edema. No cyanosis. NEUROLOGIC: The patient is awake and alert. Moving all 4 extremities. No focal deficits. MEDICATIONS: Aspirin, Ativan, Colace, Imdur, Keppra, Levemir, Lipitor, metoprolol, Protonix, and Tylenol. LABORATORY DATA: Hemoglobin 10.7, hematocrit 29.1, white blood cell 7.6, platelets 313. Sodium 146, potassium 2.4, BUN 28, creatinine 1.7, glucose 115. AST 54, ALT 30. Blood cultures are negative. ASSESSMENT AND PLAN: Mr. Maco Prince is a 66-year-old male with intracranial bleeding with ischemic stroke, chronic obstructive pulmonary disease, coronary artery disease with cardiac stenting x6, anemia, peripheral vascular disease with amputation of the toes, sleep apnea syndrome, insulin-dependent diabetes mellitus type 2, but the patient is not using insulin, renal insufficiency. Fall precautions, getting physical therapy. Talked to the patient about home safety. Discharged to subacute rehabilitation. We will continue care. He will get physical therapy. Actually, the patient is not able to live by himself alone, but he want to live by himself. He is mentally competent. We will follow up in subacute rehabilitation. Cindy Baca MD
== END 2016-12-19 18:56 | DRG 82 ==
LOC: ED 10:01 → ERH 11:43 → CCU 13:08 → 3RSO 12-18 08:22
PROVIDERS: ADMIT Internal Medicine; ATTEND Internal Medicine
DX: S06.369A Traumatic hemorrhage of cerebrum, unspecified, with loss of consciousness of unspecified duration, initial encounter (principal); I21.4 Non-ST elevation (NSTEMI) myocardial infarction; N17.9 Acute kidney failure, unspecified; I13.0 Hypertensive heart and chronic kidney disease with heart failure and stage 1 through stage 4 chronic kidney disease, or unspecified chronic kidney disease; L03.90 Cellulitis, unspecified; E87.1 Hypo-osmolality and hyponatremia; I50.9 Heart failure, unspecified; E11.22 Type 2 diabetes mellitus with diabetic chronic kidney disease; E11.51 Type 2 diabetes mellitus with diabetic peripheral angiopathy without gangrene; D64.9 Anemia, unspecified; E66.9 Obesity, unspecified; E78.00 Pure hypercholesterolemia, unspecified; E78.5 Hyperlipidemia, unspecified; E86.0 Dehydration; G47.30 Sleep apnea, unspecified; H54.8 Legal blindness, as defined in USA; N18.9 Chronic kidney disease, unspecified; I25.10 Atherosclerotic heart disease of native coronary artery without angina pectoris; I08.1 Rheumatic disorders of both mitral and tricuspid valves; J44.9 Chronic obstructive pulmonary disease, unspecified; Z79.82 Long term (current) use of aspirin; Z79.899 Other long term (current) drug therapy; Z87.01 Personal history of pneumonia (recurrent); Z90.49 Acquired absence of other specified parts of digestive tract; Z91.19 Patient's noncompliance with other medical treatment and regimen; Z91.81 History of falling; Z95.5 Presence of coronary angioplasty implant and graft; Z99.2 Dependence on renal dialysis; H26.9 Unspecified cataract; H53.8 Other visual disturbances; Z86.14 Personal history of Methicillin resistant Staphylococcus aureus infection; Z89.412 Acquired absence of left great toe; Z89.422 Acquired absence of other left toe(s); Z89.421 Acquired absence of other right toe(s); F41.9 Anxiety disorder, unspecified; F32.89 Other specified depressive episodes; Z88.0 Allergy status to penicillin; R40.2412 Glasgow coma scale score 13-15, at arrival to emergency department; Z68.34 Body mass index [BMI] 34.0-34.9, adult

== ENCOUNTER 2017-01-02 12:03 | Emergency (ER) | payer MEDICARE, OTHER ==
[2017-01-02 12:03] VITALS: BMI 34.9
[2017-01-02 12:27] VITALS: RESP 18
--- NOTE | 2017-01-02 12:40 | ED PDOC ---
Arrival/HPI - General Chief Complaint: Altered Mental Status Time Seen by Provider: 01/02/17 12:05 Historian: Patient - History of Present Illness Narrative History of Present Illness (Text): 01/02/17 12:26 A 66 year old male, whose past medical history includes hypertension, Diabetes, blindness, was brought in by EMS and presents to the emergency department complaining of unwitnessed fall. Patient was found on the floor of his home by PMD, who called an ambulance afterwards. Patient states he fell off his bed and was on the floor for a couple hours. Also, he mentions he was discharged from rehab recently. He does not want to remain in [facility] and wants to leave AMA. Patient does not state any other complaints at this time. PMD: Dr. Stefan Hussein Time/Duration: 4-6 hours Symptom Onset: Sudden Context: Home Past Medical History - Provider Review Nursing Documentation Reviewed: Yes - Infectious Disease Hx of Infectious Diseases: None - Tetanus Immunization Tetanus Immunization: Up to Date - Cardiac Hx Cardiac Disorders: Yes (CAD) Hx Congestive Heart Failure: Yes Hx Hypertension: Yes - Pulmonary Hx Chronic Obstructive Pulmonary Disease (COPD): Yes - Neurological Hx Neurological Disorder: No - HEENT Hx HEENT Disorder: Yes (BLURRY VISION TO LEFT EYE) Hx Cataracts: Yes (Right eye) - Renal Hx Renal Failure: Yes - Endocrine/Metabolic Hx Diabetes Mellitus Type 2: Yes - Hematological/Oncological Hx Blood Disorders: Yes Other/Comment: hx mrsa - Integumentary Hx Dermatological Disorder: Yes (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.ALL TOES L.RIGHT 3 TOES.) - Musculoskeletal/Rheumatological Hx Musculoskeletal Disorders: No Hx Falls: No - Gastrointestinal Hx Gastrointestinal Disorders: Yes Hx Gall Bladder Disease: Yes - Genitourinary/Gynecological Hx Genitourinary Disorders: No - Psychiatric Hx Psychophysiologic Disorder: Yes Hx Anxiety: Yes Hx Depression: Yes Hx Substance Use: No - Surgical History 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 Amputation of left foot toes. - Anesthesia Hx Anesthesia: Yes Hx Anesthesia Reactions: No Hx Malignant Hyperthermia: No - Suicidal Assessment Feels Threatened In Home Enviroment: No Family/Social History - Physician Review Nursing Documentation Reviewed: Yes Family/Social History: No Known Family HX Smoking Status: Never Smoked Hx Alcohol Use: No Hx Substance Use: No Hx Substance Use Treatment: No Allergies/Home Meds Allergies/Adverse Reactions: Allergies Penicillins Allergy (Verified 01/02/17 12:17) RASH Home Medications: Home Meds Medication Instructions Recorded Confirmed Aspirin [Ecotrin] 81 mg PO DAILY 12/14/16 01/02/17 Glipizide [Glipizide Xl] 5 mg PO DAILY 12/14/16 01/02/17 Voltaren 1% 01/02/17 Review of Systems - Physician Review All systems were reviewed & negative as marked: Yes - Review of Systems Constitutional: absent: Fevers Respiratory: absent: SOB Physical Exam - Physical Exam Narrative Physical Exam (Text): Constitutional: No acute distress. Head: Normocephalic. Atraumatic. Eyes: Right eye opacified. ENT: Moist mucous membranes. Neck: Supple. No midline tenderness. Cardiovascular: Regular rate. Chest: No tenderness. Respiratory: Clear to auscultation bilaterally. GI: Soft. Nontender. Nondistended. Back: No CVA tenderness. No midline tenderness. Musculoskeletal: No tenderness or swelling of extremities. FROM x 4. Skin: No rash. Neurologic: Alert, no focal deficit. Vital Signs Reviewed: Yes Vital Signs Temp Pulse Resp BP Pulse Ox 01/02/17 14:08 98.2 F 60 18 157/72 H 98 01/02/17 12:04 98.1 F 59 L 18 160/68 H 99 Temperature: Afebrile Blood Pressure: Hypertensive Pulse: Regular Respiratory Rate: Normal Appearance: Positive for: Well-Appearing Pain Distress: None Medical Decision Making ED Course and Treatment: 01/02/17 12:33 Impression: 66 year old male with unwitnessed fall. Physical exam shows no midline tenderness of back and neck; right eye opacified. Plan: -- Head CT -- EKG -- Labs -- Chest X-ray -- Urine Culture -- Urinalysis -- Reassess and disposition Prior Visits: Notes and results from previous visits were reviewed. On 12/14/2016 for unwitnessed fall. Patient was diagnosed with leukocytosis and intracranial bleed. patient was admitted. Progress Notes: EKG: Ordered, reviewed, and independently interpreted the EKG. Rate : 60 BPM Rhythm : NSR Interpretation : No ST-segment elevations or depressions, no T-wave inversions, normal intervals. Comparison : No previous EKG for comparison. 01/02/2017 14:[address] without Contrast HISTORY: fall, h/o ICH COMPARISON: 12/15/2016 TECHNIQUE: Axial computed tomography images were obtained through the head/brain without intravenous contrast. Radiation dose: Total exam DLP = 711 mGy-cm. This CT exam was performed using one or more of the following dose reduction techniques: Automated exposure control, adjustment of the mA and/or kV according to patient size, and/or use of iterative reconstruction technique. FINDINGS: HEMORRHAGE: The previous study showed a large hemorrhagic infarct in the right parietal lobe measuring 4.4 cm in diameter. Nonhemorrhagic infarcts were seen more anteriorly in the frontal lobe. On the current study the right parietal hemorrhage has decreased in size and density. This now measures 3.6 cm in diameter. BRAIN: No significant mass effect. There are no acute findings VENTRICLES: Unremarkable. No hydrocephalus. CALVARIUM: Unremarkable. PARANASAL SINUSES: Unremarkable as visualized. No significant inflammatory changes. MASTOID AIR CELLS: Unremarkable as visualized. No inflammatory changes. OTHER FINDINGS: None. IMPRESSION: Resolving hemorrhagic infarct the right parietal lobe and recent infarcts in the right frontal lobe. No acute intracranial findings Dictator : Ion Lizarraga MD 01/02/2017 14:30 Chest X-Ray HISTORY: r/o PNA COMPARISON: 12/14/2016 FINDINGS: LUNGS: Clear. PLEURA: No pneumothorax or pleural fluid seen. CARDIOVASCULAR: Normal. OSSEOUS STRUCTURES: No significant abnormalities. VISUALIZED UPPER ABDOMEN: Normal. OTHER FINDINGS: None. IMPRESSION: No active disease. Dictator : Ion Lizarraga MD 01/02/17 15:29 Leaving Against Medical Advice (AMA): The patient is choosing to leave against medical advice. I have personally explained to the patient that choosing to do so may result in permanent bodily harm or . I have discussed at great length that without further evaluation and monitoring there may be unforeseen circumstances and/or deterioration causing permanent bodily harm or as a result of their choice. The patient is alert, oriented, and shows the mental capacity to make clear decisions regarding the patients health care at this time. The patient continues to wish to leave against medical advice. The patient has been advised that they should return to the emergency room immediately if they change their mind at any time, or if their condition begins to change or worsen in any way. Patient was heavily encouraged to stay in hospital by me, by PMD Dr. Aviles via phone due to the his chronic medical conditions and the lack of support at home. bank worker who also spoke to patient via phone attempted to convince the patient to stay in the hospital and informed him that she was actively working on obtaining home care or NH placement but that in the interim, he was not safe to be at home alone. The patient understood all of this but refused to stay in the hospital and wished to leave against medical advice. He understood the risk of or permanent disability. - Lab Interpretations Lab Results: 01/02/17 12:50 01/02/17 12:50 Lab Results 01/02/17 12:50: PT 11.6, INR 1.07, APTT 25.9 01/02/17 12:50: WBC 9.4 D, RBC 3.93, Hgb 11.6 L, Hct 31.8 L, MCV 80.9, MCH 29.5 , MCHC 36.5, RDW 14.9 H, Plt Count 308, MPV 10.7, Gran % 72.4 H, Lymph % (Auto) 18.6 L, [place] % (Auto) 7.5 H, Eos % (Auto) 1.0 L, Baso % (Auto) 0.5, Gran # 6.80 H, Lymph # 1.7, [place] # 0.7 H, Eos # 0.1, Baso # 0.05 01/02/17 12:50: Sodium 139, Potassium 3.9, Chloride 102, Carbon Dioxide 19 L, Anion Gap 22 H, BUN 26 H, Creatinine 2.7 H, Est GFR ( Amer) 29, Est GFR ( Non-Af Amer) 24, Random Glucose 135 H, Calcium 9.9, Total Bilirubin 0.9, AST 51 , ALT 32, Alkaline Phosphatase 117, Total Creatine Kinase 341 H, CK-MB (CK-2) 4.7 H, CK-MB (CK-2) % Cancelled, Total Protein 7.2, Albumin 4.3, Globulin 2.9, Albumin/Globulin Ratio 1.5 01/02/17 12:07: POC Glucose (mg/dL) 129 H I have reviewed the lab results: Yes - RAD Interpretation Radiology Orders: 01/02/17 12:33 HEAD W/O CONTRAST [CT] Stat CHEST ONE VIEW [RAD] Stat - Scribe Statement The provider has reviewed the documentation as recorded by the Scribe Sonali Seals Provider Scribe Provider Scribe Attestation: All medical record entries made by the Scribe were at my direction and personally dictated by me. I have reviewed the chart and agree that the record accurately reflects my personal performance of the history, physical exam, medical decision making, and the department course for this patient. I have also personally directed, reviewed, and agree with the discharge instructions and disposition. Disposition/Present on Arrival - Present on Arrival Any Indicators Present on Arrival: No History of DVT/PE: No History of Uncontrolled Diabetes: No Urinary Catheter: No History of Decub. Ulcer: No History Surgical Site Infection Following: None - Disposition Have Diagnosis and Disposition been Completed?: Yes Diagnosis: Fall Disposition: AGAINST MEDICAL ADVICE Disposition Time: 15:00 Patient Plan: Discharge Condition: GUARDED Referrals: Cindy Baca MD [Primary Care Provider] - Follow up with primary Forms: [employer] ([place]uan)
[2017-01-02 12:59] LABS: BASO # 0.05 K/mm3 (0.0-2.0); BASO % 0.5 % (0.0-3.0); EOS # 0.1 (0.0-0.7); GRAN # 6.8 (1.4-6.5); GRAN % 72.4 % (50.0-68.0); HEMATOCRIT 31.8 % (42.0-52.0); LYMPH # 1.7 (1.2-3.4); LYMPH % 18.6 % (22.0-35.0); MEAN CELL VOLUME 80.9 fl (80.0-105.0); MEAN CORPUSCULAR HEMOGLOBIN 29.5 pg (25.0-35.0); MEAN CORPUSCULAR HGB CONC 36.5 g/dl (31.0-37.0); MEAN PLATELET VOLUME 10.7 fl (7.0-11.0); MONO # 0.7 (0.1-0.6); MONO % 7.5 % (1.0-6.0); RED CELL DISTRIBUTION WIDTH 14.9 % (11.5-14.5); WHITE BLOOD COUNT 9.4 10^3/ul (4.5-11.0)
[2017-01-02 13:06] LABS: INR 1.07 (0.93-1.08); PARTIAL THROMBOPLASTIN TIME 25.9 Seconds (23.7-30.8)
[2017-01-02 13:07] LABS: ALB/GLOB RATIO 1.5 (1.1-1.8); BILIRUBIN,TOTAL 0.9 mg/dL (0.2-1.3); CALCIUM 9.9 mg/dL (8.4-10.5); POTASSIUM 3.9 mmol/L (3.6-5.0); TOTAL PROTEIN 7.2 g/dL (5.8-8.3)
--- NOTE | 2017-01-02 14:02 | CT ---
PROCEDURE: CT HEAD WITHOUT CONTRAST. HISTORY: fall, h/o ICH COMPARISON: 12/15/2016 TECHNIQUE: Axial computed tomography images were obtained through the head/brain without intravenous contrast. Radiation dose: Total exam DLP = 711 mGy-cm. This CT exam was performed using one or more of the following dose reduction techniques: Automated exposure control, adjustment of the mA and/or kV according to patient size, and/or use of iterative reconstruction technique. FINDINGS: HEMORRHAGE: The previous study showed a large hemorrhagic infarct in the right parietal lobe measuring 4.4 cm in diameter. Nonhemorrhagic infarcts were seen more anteriorly in the frontal lobe. On the current study the right parietal hemorrhage has decreased in size and density. This now measures 3.6 cm in diameter. BRAIN: No significant mass effect. There are no acute findings VENTRICLES: Unremarkable. No hydrocephalus. CALVARIUM: Unremarkable. PARANASAL SINUSES: Unremarkable as visualized. No significant inflammatory changes. MASTOID AIR CELLS: Unremarkable as visualized. No inflammatory changes. OTHER FINDINGS: None. IMPRESSION: Resolving hemorrhagic infarct the right parietal lobe and recent infarcts in the right frontal lobe. No acute intracranial findings
[2017-01-02 14:10] VITALS: TEMP 98.2; O2SAT 98
[2017-01-02 14:18] VITALS: PULSE 60
[2017-01-02 14:19] VITALS: BP 157/72
--- NOTE | 2017-01-02 14:32 | RAD ---
PROCEDURE: CHEST RADIOGRAPH, 1 VIEW HISTORY: r/o PNA COMPARISON: 12/14/2016 FINDINGS: LUNGS: Clear. PLEURA: No pneumothorax or pleural fluid seen. CARDIOVASCULAR: Normal. OSSEOUS STRUCTURES: No significant abnormalities. VISUALIZED UPPER ABDOMEN: Normal. OTHER FINDINGS: None. IMPRESSION: No active disease.
--- NOTE | 2017-01-02 17:08 | CARD ---
APPROVED REPORT EKG Measurement Heart [id number] <Conclusion> Sinus rhythm with premature atrial complexes Minimal voltage criteria for LVH, may be normal variant Anteroseptal infarct, age undetermined T wave abnormality, consider lateral ischemia Abnormal ECG
== END 2017-01-02 15:35 | disposition left against medical advice (07) ==
LOC: ED 12:03
DX: Z03.89 Encounter for observation for other suspected diseases and conditions ruled out (principal); W06.XXXA Fall from bed, initial encounter; Y92.009 Unspecified place in unspecified non-institutional (private) residence as the place of occurrence of the external cause

== ENCOUNTER 2017-07-17 14:12 | Inpatient (IN) | payer MEDICARE, OTHER ==
[2017-07-17 14:25] VITALS: BMI 35.4
[2017-07-17 14:48] LABS: BASO # 0.06 K/mm3 (0.0-2.0); BASO % 0.7 % (0.0-3.0); EOS # 0.2 (0.0-0.7); EOS % 1.8 % (1.5-5.0); GRAN # 6.34 (1.4-6.5); GRAN % 75.2 % (50.0-68.0); HEMOGLOBIN 13.3 g/dL (14.0-18.0); LYMPH # 1.4 (1.2-3.4); LYMPH % 16.1 % (22.0-35.0); MEAN CELL VOLUME 79.2 fl (80.0-105.0); MEAN CORPUSCULAR HEMOGLOBIN 28.8 pg (25.0-35.0); MEAN CORPUSCULAR HGB CONC 36.3 g/dl (31.0-37.0); MEAN PLATELET VOLUME 10.3 fl (7.0-11.0); MONO # 0.5 (0.1-0.6); MONO % 6.2 % (1.0-6.0); RBC 4.62 10^6/uL (3.5-6.1); RED CELL DISTRIBUTION WIDTH 14.4 % (11.5-14.5); WHITE BLOOD COUNT 8.4 10^3/ul (4.5-11.0)
--- NOTE | 2017-07-17 14:57 | RAD ---
HISTORY: chest pain COMPARISON: 01/02/2017 FINDINGS: LUNGS: No active pulmonary disease. PLEURA: No significant pleural effusion identified, no pneumothorax apparent. CARDIOVASCULAR: Normal. OSSEOUS STRUCTURES: No significant abnormalities. VISUALIZED UPPER ABDOMEN: Normal. OTHER FINDINGS: None. IMPRESSION: No active disease.
[2017-07-17 15:01] LABS: ALB/GLOB RATIO 1.3 (1.1-1.8); ALBUMIN 4.4 g/dL (3.0-4.8); CALCIUM 9.7 mg/dL (8.4-10.5)
[2017-07-17 15:12] LABS: TROPONIN I 0.02 ng/mL
--- NOTE | 2017-07-17 16:06 | ED PDOC ---
Arrival/HPI - General Chief Complaint: Chest Pain Time Seen by Provider: 07/17/17 14:21 Historian: Patient - History of Present Illness Narrative History of Present Illness (Text): 07/17/17 16:03 A 66 year old male presents to the emergency department complaining of intermittent chest pain for the past 4-5 days. Patient describes the pain as a non-radiating pressure sensation. Patient notes mild shortness of breath but denies any fever, chills, appetite changes, nausea, vomiting, abdominal pain, cough or any other complaints. Patient is complaint with his medications. Patients last catheterization was in [address] Lamont Azul. Time/Duration: Other (4-5 days) Symptom Course: Intermittent Quality: Pressure Context: Home Past Medical History - Provider Review Nursing Documentation Reviewed: Yes - Infectious Disease Hx of Infectious Diseases: None - Tetanus Immunization Tetanus Immunization: Up to Date - Cardiac Hx Cardiac Disorders: Yes (CAD) Hx Congestive Heart Failure: Yes Hx Hypertension: Yes - Pulmonary Hx Respiratory Disorders: Yes Hx Chronic Obstructive Pulmonary Disease (COPD): Yes - Neurological Hx Neurological Disorder: No - HEENT Hx HEENT Disorder: Yes (BLURRY VISION TO LEFT EYE) Hx Blind: Yes (partial) Hx Cataracts: Yes (Right eye) - Renal Hx Renal Disorder: Yes Hx Renal Failure: Yes - Endocrine/Metabolic Hx Endocrine Disorders: Yes Hx Diabetes Mellitus Type 2: Yes - Hematological/Oncological Hx Blood Disorders: No - Integumentary Hx Dermatological Disorder: Yes (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.ALL TOES L.RIGHT 3 TOES.) Other/Comment: mrsa bilateral feet - Musculoskeletal/Rheumatological Hx Musculoskeletal Disorders: Yes Hx Arthritis: Yes Hx Falls: Yes - Gastrointestinal Hx Gastrointestinal Disorders: Yes Hx Gall Bladder Disease: Yes - Genitourinary/Gynecological Hx Genitourinary Disorders: No - Psychiatric Hx Psychophysiologic Disorder: Yes Hx Anxiety: Yes Hx Depression: Yes Hx Substance Use: No - Surgical History 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 Amputation of left foot toes. - Anesthesia Hx Anesthesia: Yes Hx Anesthesia Reactions: No Hx Malignant Hyperthermia: No - Suicidal Assessment Feels Threatened In Home Enviroment: No Family/Social History - Physician Review Nursing Documentation Reviewed: Yes Family/Social History: No Known Family HX Smoking Status: Never Smoked Hx Alcohol Use: No Hx Substance Use: No Hx Substance Use Treatment: No Allergies/Home Meds Allergies/Adverse Reactions: Allergies Penicillins Allergy (Verified 07/17/17 14:24) RASH Home Medications: Home Meds Medication Instructions Recorded Confirmed Aspirin [Ecotrin] 81 mg PO DAILY 12/14/16 07/17/17 Cholecalciferol (Vitamin D3) 2,000 unit PO DAILY 07/17/17 07/17/17 [Vitamin D3] Losartan Potassium 25 mg PO DAILY 07/17/17 07/17/17 Paricalcitol [Zemplar] 1 mcg PO QOTHERDAY 07/17/17 07/17/17 SITagliptin [Januvia] 50 mg PO DAILY 07/17/17 07/17/17 Review of Systems - Physician Review All systems were reviewed & negative as marked: Yes - Review of Systems Constitutional: absent: Fevers, Night Sweats Respiratory: SOB. absent: Cough Cardiovascular: Chest Pain Gastrointestinal: absent: Abdominal Pain, Nausea, Vomiting, Appetite Changes Physical Exam Vital Signs Reviewed: Yes Vital Signs Temp Pulse Pulse Resp BP Pulse Ox 07/17/17 20:18 98.1 F 53 L 18 148/53 L 96 07/17/17 17:30 56 L 17 158/83 H 98 07/17/17 15:33 98.0 F 56 L 18 155/79 H 97 07/17/17 14:40 58 L Temperature: Afebrile Blood Pressure: Hypertensive Pulse: Bradycardic Respiratory Rate: Normal Appearance: Positive for: Well-Appearing, Non-Toxic, Comfortable Pain Distress: None Mental Status: Positive for: Alert and Oriented X 3 - Systems Exam Head: Present: Atraumatic, Normocephalic Pupils: Present: PERRL Extroacular Muscles: Present: EOMI Conjunctiva: Present: Normal Mouth: Present: Moist Mucous Membranes Neck: Present: Normal Range of Motion Respiratory/Chest: Present: Clear to Auscultation, Good Air Exchange. No: Respiratory Distress, Accessory Muscle Use Cardiovascular: Present: Regular Rate and Rhythm, Normal S1, S2. No: Murmurs Abdomen: Present: Normal Bowel Sounds. No: Tenderness, Distention, Peritoneal Signs Back: Present: Normal Inspection Upper Extremity: Present: Normal Inspection. No: Cyanosis, Edema Lower Extremity: Present: Normal Inspection. No: Edema Neurological: Present: GCS=15, CN II-XII Intact, Speech Normal Skin: Present: Warm, Dry, Normal Color. No: Rashes Psychiatric: Present: Alert, Oriented x 3, Normal Insight, Normal Concentration Medical Decision Making ED Course and Treatment: 07/17/17 16:03 Impression: A 66 year old male with intermittent non-radiating chest pressure. Patient notes mild shortness of breath. Differential Diagnosis included but are not limited to: Plan: -- Chest xray -- EKG -- Labs -- Urinalysis -- Aspirin -- Reassess and disposition Progress Notes: EKG shows NSR at 63 BPM with LAD, T-wave inversions in lateral leads. Interpreted by me. Report Date : 07/17/2017 14:55:39 Procedure: Chest xray Dictator : Ion Lizarraga MD IMPRESSION: No active disease. Case discussed with Dr. Baca, agrees with admission to telemetry under her service. Patient aware of and in agreement with plan. - Lab Interpretations Lab Results: 07/17/17 14:30 07/17/17 14:30 Lab Results 07/17/17 14:30: Sodium 141, Potassium 4.6, Chloride 106, Carbon Dioxide 22, Anion Gap 18, BUN 33 H, Creatinine 2.2 H, Est GFR ( Amer) 37, Est GFR ( Non-Af Amer) 30, Random Glucose 297 H, Calcium 9.7, Magnesium 1.9, Total Bilirubin 0.4, AST 23, ALT 24, Alkaline Phosphatase 82, Lactate Dehydrogenase 536, Total Creatine Kinase 82, Troponin I 0.02 D, NT-Pro-B Natriuret Pep 1290 H , Total Protein 7.8, Albumin 4.4, Globulin 3.4, Albumin/Globulin Ratio 1.3 07/17/17 14:30: WBC 8.4, RBC 4.62, Hgb 13.3 L, Hct 36.6 L, MCV 79.2 L, MCH 28.8 , MCHC 36.3, RDW 14.4, Plt Count 299, MPV 10.3, Gran % 75.2 H, Lymph % (Auto) 16.1 L, [place]ck[place] % (Auto) 6.2 H, Eos % (Auto) 1.8, Baso % (Auto) 0.7, Gran # 6.34, Lymph # (Auto) 1.4, Mck[place] # (Auto) 0.5, Eos # (Auto) 0.2, Baso # (Auto) 0.06 I have reviewed the lab results: Yes - RAD Interpretation Radiology Orders: 07/17/17 14:27 CHEST PORTABLE [RAD] Stat - Medication Orders Current Medication Orders: Aspirin (Ecotrin) 81 mg PO DAILY SEVERIAON Cholecalciferol (Vitamin D) 2,000 intlu PO DAILY SEVERIANO Insulin Human Regular (Humulin R Low) 0 units SC ACHS SEVERIANO PRN Reason: Protocol Losartan Potassium (Cozaar) 25 mg PO DAILY SEVERIANO Paricalcitol [ Zemplar] 1 Mcg (Home Med) 1 mcg PO QOTHERDAY SEVERIANO Sitagliptin Phosphate (Januvia) 50 mg PO DAILY SEVERIANO Discontinued Medications Aspirin (Aspirin) 325 mg PO STAT STA Stop: 07/17/17 14:27 Last Admin: 07/17/17 14:54 Dose: 325 mg - Scribe Statement The provider has reviewed the documentation as recorded by the Forrest Kirby Provider Scribe Attestation: All medical record entries made by the Vladiboumar were at my direction and personally dictated by me. I have reviewed the chart and agree that the record accurately reflects my personal performance of the history, physical exam, medical decision making, and the department course for this patient. I have also personally directed, reviewed, and agree with the discharge instructions and disposition. Disposition/Present on Arrival - Present on Arrival Any Indicators Present on Arrival: No History of DVT/PE: No History of Uncontrolled Diabetes: No Urinary Catheter: No History of Decub. Ulcer: No History Surgical Site Infection Following: None - Disposition Have Diagnosis and Disposition been Completed?: Yes Diagnosis: Chest pain Disposition: HOSPITALIZED Disposition Time: 15:20 Condition: STABLE
[2017-07-17 16:33] LABS: URINE BILIRUBIN NEGATIVE (NEGATIVE); URINE BLOOD TRACE-INTACT (NEGATIVE); URINE GLUCOSE (UA) >=1000 mg/dL (NEGATIVE); URINE LEUKOCYTE ESTERASE NEGATIVE Leu/uL (NEGATIVE); URINE PROTEIN 30 mg/dL (<30 mg/dL); URINE UROBILINOGEN 0.2 E.U./dL (<1 E.U./dL)
[2017-07-17 16:43] LABS: URINE APPEARANCE CLEAR (CLEAR); URINE COLOR YELLOW (YELLOW)
[2017-07-17 17:03] LABS: URINE EPITHELIAL CELLS 0 - 2 /hpf (0-5); URINE WBC 0 - 2 /hpf (0-6)
--- NOTE | 2017-07-17 17:18 | CARD ---
APPROVED REPORT EKG Measurement Heart [id number] 182P53 [id number] <Conclusion> Normal sinus rhythm Left anterior Smooth-Block. Moderate voltage criteria for LVH, may be normal variant. Poor R Progression in V Leads may be related to Lt.Ant,Smooth-BlockST_T Changes.
[2017-07-17] MEDS ORDERED: Pantoprazole 40 mg EC Tab PO STA (21:47)
--- NOTE | 2017-07-17 21:49 | CP.PCM.PN ---
Subjective - Date & Time of Evaluation Date of Evaluation: 07/17/17 Time of Evaluation: 21:48 - Subjective Subjective: Patient was seen at bedside for his complaint of heart burn. Has no other complaints now. Denies chest pain , sob, nausea, vomiting, headache, dizziness. Medical record was reviewed. This 66 year old white male is admitted with intermittent chest pain, sob. Has PMH of Objective - Vital Signs/Intake and Output Vital Signs (last 24 hours): Temp Pulse Resp BP Pulse Ox 98.1 F 53 L 18 148/53 L 96 07/17/17 20:18 07/17/17 20:18 07/17/17 20:18 07/17/17 20:18 07/17/17 20:18 - Medications Medications: Current Medications Aspirin (Ecotrin) 81 mg PO DAILY SEVERIANO Cholecalciferol (Vitamin D) 2,000 intlu PO DAILY SEVERIANO Insulin Human Regular (Humulin R Low) 0 units SC ACHS SEVERIANO PRN Reason: Protocol Losartan Potassium (Cozaar) 25 mg PO DAILY SEVERIANO Paricalcitol [ Zemplar] 1 Mcg (Home Med) 1 mcg PO QOTHERDAY SEVERIANO Pantoprazole Sodium (Protonix Ec Tab) 40 mg PO STAT STA Stop: 07/17/17 21:48 Sitagliptin Phosphate (Januvia) 50 mg PO DAILY SEVERIANO - Labs Labs: Most Recent Lab Values WBC 8.4 10^3/ul (4.5-11.0) 07/17/17 14:30 RBC 4.62 10^6/uL (3.5-6.1) 07/17/17 14:30 Hgb 13.3 g/dL (14.0-18.0) L 07/17/17 14:30 Hct 36.6 % (42.0-52.0) L 07/17/17 14:30 MCV 79.2 fl (80.0-105.0) L 07/17/17 14:30 MCH 28.8 pg (25.0-35.0) 07/17/17 14:30 MCHC 36.3 g/dl (31.0-37.0) 07/17/17 14:30 RDW 14.4 % (11.5-14.5) 07/17/17 14:30 Plt Count 299 10^3/uL (120.0-450.0) 07/17/17 14:30 MPV 10.3 fl (7.0-11.0) 07/17/17 14:30 Gran % 75.2 % (50.0-68.0) H 07/17/17 14:30 Lymph % (Auto) 16.1 % (22.0-35.0) L 07/17/17 14:30 [place]kins % (Auto) 6.2 % (1.0-6.0) H 07/17/17 14:30 Eos % (Auto) 1.8 % (1.5-5.0) 07/17/17 14:30 Baso % (Auto) 0.7 % (0.0-3.0) 07/17/17 14:30 Gran # 6.34 (1.4-6.5) 07/17/17 14:30 Lymph # (Auto) 1.4 (1.2-3.4) 07/17/17 14:30 Tom[place]kins # (Auto) 0.5 (0.1-0.6) 07/17/17 14:30 Eos # (Auto) 0.2 (0.0-0.7) 07/17/17 14:30 Baso # (Auto) 0.06 K/mm3 (0.0-2.0) 07/17/17 14:30 Sodium 141 mmol/L (132-148) 07/17/17 14:30 Potassium 4.6 mmol/L (3.6-5.0) 07/17/17 14:30 Chloride 106 mmol/L (98-107) 07/17/17 14:30 Carbon Dioxide 22 mmol/L (21-33) 07/17/17 14:30 Anion Gap 18 (10-20) 07/17/17 14:30 BUN 33 mg/dL (7-21) H 07/17/17 14:30 Creatinine 2.2 mg/dl (0.8-1.5) H 07/17/17 14:30 Est GFR ( Amer) 37 07/17/17 14:30 Est GFR (Non-Af Amer) 30 07/17/17 14:30 POC Glucose (mg/dL) 187 mg/dL (65-110) H 07/17/17 22:00 Random Glucose 297 mg/dL (70-110) H 07/17/17 14:30 Calcium 9.7 mg/dL (8.4-10.5) 07/17/17 14:30 Magnesium 1.9 mg/dL (1.7-2.2) 07/17/17 14:30 Total Bilirubin 0.4 mg/dL (0.2-1.3) 07/17/17 14:30 AST 23 U/L (17-59) 07/17/17 14:30 ALT 24 U/L (7-56) 07/17/17 14:30 Alkaline Phosphatase 82 U/L (38-126) 07/17/17 14:30 Lactate Dehydrogenase 536 U/L (333-699) 07/17/17 14:30 Total Creatine Kinase 82 U/L (35-230) 07/17/17 14:30 Troponin I 0.02 ng/mL 07/17/17 22:14 NT-Pro-B Natriuret Pep 1290 pg/mL (0-450) H 07/17/17 14:30 Total Protein 7.8 g/dL (5.8-8.3) 07/17/17 14:30 Albumin 4.4 g/dL (3.0-4.8) 07/17/17 14:30 Globulin 3.4 gm/dL 07/17/17 14:30 Albumin/Globulin Ratio 1.3 (1.1-1.8) 07/17/17 14:30 Urine Color Yellow (YELLOW) 07/17/17 16:15 Urine Appearance Clear (CLEAR) 07/17/17 16:15 Urine pH 6.0 (4.7-8.0) 07/17/17 16:15 Ur Specific [place] 1.025 (1.005-1.035) 07/17/17 16:15 Urine Protein 30 mg/dL (<30 mg/dL) H 07/17/17 16:15 Urine Glucose (UA) >=1000 mg/dL (NEGATIVE) 07/17/17 16:15 Urine Ketones Negative mg/dL (NEGATIVE) 07/17/17 16:15 Urine Blood Trace-intact (NEGATIVE) H 07/17/17 16:15 Urine Nitrate Negative (NEGATIVE) 07/17/17 16:15 Urine Bilirubin Negative (NEGATIVE) 07/17/17 16:15 Urine Urobilinogen 0.2 E.U./dL (<1 E.U./dL) 07/17/17 16:15 Ur Leukocyte Esterase Negative Agusto/uL (NEGATIVE) 07/17/17 16:15 Urine RBC 1 - 3 /hpf (0-2) 07/17/17 16:15 Urine WBC 0 - 2 /hpf (0-6) 07/17/17 16:15 Ur Epithelial Cells 0 - 2 /hpf (0-5) 07/17/17 16:15 - Constitutional Appears: Well, No Acute Distress - Head Exam Head Exam: ATRAUMATIC, NORMAL INSPECTION, NORMOCEPHALIC Additional comments: Obese, not in acute distress. - Eye Exam Eye Exam: Normal appearance - ENT Exam ENT Exam: Normal External Ear Exam - Neck Exam Neck Exam: Normal Inspection - Respiratory Exam Respiratory Exam: NORMAL BREATHING PATTERN - Cardiovascular Exam Cardiovascular Exam: absent: JVD - GI/Abdominal Exam GI & Abdominal Exam: absent: Distended - Rectal Exam Rectal Exam: Deferred - Exam Additional comments: Deferred. - Extremities Exam Extremities Exam: Normal Inspection - Back Exam Back Exam: NORMAL INSPECTION - Neurological Exam Neurological Exam: Alert, Awake, Oriented x3 - Psychiatric Exam Psychiatric exam: Normal Affect, Normal Mood - Skin Skin Exam: Normal Color Assessment and Plan - Assessment and Plan (Free Text) Assessment: Heart burn. Chest pain/SOB . Obesity. Borderline anemia. Renal insufficiency. Hyperglycemia. Elevated BNP. Plan: EKG stat.-----> NSR, poor R wave progression. Troponin stat. Protonix 40 mg PO stat. Patient seen again:11:30 PM. States that burning is gone, has still little sternal pain.Agreed to have mylanta 30 CC PO x 1.
[2017-07-17] MEDS: Insulin Reg-LOW-Coverage SC SCH (22:26)
[2017-07-17] MEDS ORDERED: Alum-Mag Hydrox-Simethicone Susp (30 mL) PO STA (23:42)
[2017-07-18 07:15] LABS: HEMOGLOBIN 12.6 g/dL (14.0-18.0); MEAN CORPUSCULAR HEMOGLOBIN 28.1 pg (25.0-35.0); MEAN CORPUSCULAR HGB CONC 35.6 g/dl (31.0-37.0); MEAN PLATELET VOLUME 10.4 fl (7.0-11.0); RBC 4.48 10^6/uL (3.5-6.1); RED CELL DISTRIBUTION WIDTH 14.3 % (11.5-14.5); WHITE BLOOD COUNT 6.8 10^3/ul (4.5-11.0)
[2017-07-18 07:25] LABS: CALCIUM 9.5 mg/dL (8.4-10.5)
[2017-07-18 07:32] LABS: TROPONIN I 0.03 ng/mL
[2017-07-18] MEDS: Insulin Reg-LOW-Coverage SC SCH ×3 (08:06→22:03)
[2017-07-18 08:17] LABS: TOTAL IRON BINDING CAPACITY 266 ug/dL (261-462)
[2017-07-18 08:25] LABS: % IRON SATURATION 53 % (20-55); IRON 141 ug/dL (45-180)
[2017-07-18] MEDS: Cholecalciferol 1,000 INTLU TAB PO SCH (09:11)
[2017-07-18] MEDS ORDERED: Sodium Chloride 0.9% 1,000 ML IV SCH ×2 (10:15→14:26)
[2017-07-18] MEDS ORDERED: SODIUM CHLORIDE 0.45% IV SCH (10:30)
[2017-07-18] MEDS ORDERED: SODIUM BICARBONATE IV SCH (10:30)
--- NOTE | 2017-07-18 10:38 | CARD ---
APPROVED REPORT EKG Measurement Heart [id number] ID [id number] <Conclusion> Normal sinus rhythm Lt.Ant.Smooth-Block. Poor R Progression in V Leads may be related to Lt.Ant.Smooth-Block. T Inversion in I, AVL.
[2017-07-18] MEDS ORDERED: Lidocaine 2% Inj (20ml) ONE (11:30)
[2017-07-18] MEDS ORDERED: Midazolam 2 MG/2 ML VIAL ONE ×2 (11:31→13:21)
[2017-07-18] MEDS ORDERED: Iodixanol 320 MG/ML 200 ML BOTTLE IV ONE (11:31)
[2017-07-18] MEDS ORDERED: Nitroglycerin 50mg in D5W 50 MG/250 ML BOTTLE IV ONE (11:32)
[2017-07-18 12:28] LABS: FOLATE 9.2 ng/mL
[2017-07-18] MEDS ORDERED: Adenosine 90 mg/30mL IV ONE (13:42)
[2017-07-18] MEDS ORDERED: Iohexol 350mgl/ml 50 ML ONE (13:46)
--- NOTE | 2017-07-18 15:58 | CARDCATH ---
PROCEDURE DATE: 07/18/2017 HISTORY: The patient is a 66-year-old male with multiple cardiac risk factors including diabetes mellitus, hypertension with known coronary artery disease, who presents with exertional angina and shortness of breath. His troponin's were intermediate. Because of this, cardiac catheterization was recommended. The patient was pretreated with IV bicarb as well as aggressive IV hydration because of his creatinine of 2. PROCEDURES: Left heart catheterization with coronary arteriography, left ventriculogram, fractional flow reserve, followed by percutaneous transluminal coronary angioplasty and stent of the circumflex artery as well as percutaneous transluminal coronary angioplasty and stent of the ostial RCA. The right femoral artery was cannulated with 6-Serbian sheath. There were no complications. I performed moderate sedation which included the presence of an independent trained observer who assisted in monitoring the patient's level of consciousness and physiologic status. After administration of Versed and fentanyl, my intra-service time was 30 minutes. The findings on catheterization revealed a left ventricle that revealed an akinetic anterior apex area. Inferior wall moved well. Estimated ejection fraction is 35% to 40%. His left main artery revealed intimal irregularities without critical lesions. The LAD was occluded at its ostium, which is chronic. The circumflex artery consisted of an obtuse marginal branch. At the takeoff of the obtuse marginal branch, there was a 70% stenosis noted. The RCA was selectively cannulized and found to be a dominant vessel. There were diffuse intimal irregularities throughout its course. In addition, there was 80% stenoses in the ostium of the RCA. The patient started on intravenous Angiomax on the fluoroscopic guide, the guiding catheter was placed in the ostium of the left main artery. An FFR wire was placed across the circumflex lesion. The FFR was measured to be 0.82. This was followed by using a 2.75 x 12 mm drug-eluting stent at 14 atmospheres of pressure in the circumflex lesion. After balloon deflation and removal, repeat coronary arteriography revealed an excellent result with no residual stenosis and PEREZ III flow. The wire was then exchanged for a 3.5 right guider which was placed at the ostium of the RCA. A 0.014 ATW wire was used to cross the lesion. A 3.5 x 9 mm drug-eluting stent was placed and deployed at the ostium of the RCA. Repeat coronary arteriography revealed an excellent result with no residual stenosis and PEREZ III flow. Angio-Seal was used to close the femoral artery site. The patient tolerated the procedure well. In summary, the procedure was successful for PTCA and stent of a critically stenosed mid circumflex lesion as well as a PTCA and stent of an ostial RCA lesion, using drug-eluting stents. The circumflex lesion was measured to have an FFR of 0.82, the ostial RCA lesion revealed 80% obstructive lesion. Cardiac catheterization reveals an anterior apex hypokinesis with an EF of 35% to 40%. Coronary arteriography revealed a chronically occluded LAD with stents in the new lesions in the circumflex and the RCA. Given these findings, the patient will remain on aspirin indefinitely and Plavix for a year and undergo a strict cardiac risk reduction program. We will continue aggressive IV hydration until the end of the night. Lamont Azul MD
--- NOTE | 2017-07-18 18:07 | CARD ---
APPROVED REPORT EKG Measurement Heart [id number] FL [id number] <Conclusion> Sinus bradycardia Septal infarct, age undetermined T wave abnormality, consider lateral ischemia Abnormal ECG
--- NOTE | 2017-07-18 23:57 | CON ---
DATE: HISTORY OF PRESENT ILLNESS: The patient is 66-year-old male with long history of chest pain. Patient was admitted on the medical side for evaluation of chest pain and pressure-like sensation in his chest area. Psych consult was called for evaluation of possible anxiety symptoms. Patient was seen and examined today. Patient presented to be alert and oriented, pleasant, cooperative. Patient is aware of the circumstances of his admission to the medical side. Patient does not remember this technical publications writer from before. This technical publications writer was involved into the consultation services for this patient in 11/2016. By the time patient was making inappropriate sexual remarks, but patient did not present this way today. Patient said that he was feeling lonely, but denied feeling depressed. Denied any thoughts of harming himself or others. Patient wants to go to [facility]. Patient reported that he lives independently. He likes his apartment, but after his home health aide's leaving, he feels very lonely. Patient denied hearing voices, denied seeing things, denied paranoid ideation. No suicidal ideation reported or observed. VITAL SIGNS: Seems to be stable. Temperature 98.3, pulse is 55, blood pressure 126/69, respirations 16, oxygen saturation is 97. MEDICATIONS: Reviewed. Aspirin, Lipitor, vitamin D, Plavix, Humulin, Cozaar, Lopressor, Januvia, sodium chloride. LABORATORY DATA: Reviewed. Most recent was from today, hemoglobin 12, hematocrit 35. Chemistry also reviewed. BUN at present seems to be elevated. Hemoglobin A1c 9.3. Urinalysis, blood trace. Collateral information was obtained from the nursing staff. As per nursing staff, patient is compliant with the medication and treatment. No signs of agitation or aggression. Pleasant, cooperative. PAST PSYCHIATRIC HISTORY: Patient denied history of being admitted to the psychiatric inpatient unit. Denied history of suicidal attempts. MENTAL STATUS EXAMINATION: Patient appears to be alert and oriented, pleasant. At times, patient appears to be with circumstantial and tangential thought process. Mood described as "at times, I feel lonely." Thought process seems to be goal directed, at times circumstantial. Thought content, patient denied visual, auditory or tactile hallucinations. Denied paranoid ideation. Patient denied thoughts of harming himself or others. Denied intent or plan. In regards of anxiety, patient reported at times he feels overly anxious, but denied this anxiety is of interfering with his daily activities. IMPRESSION: Rule out anxiety due to general medical condition, rule out adjustment disorder with anxious mood. PLAN: Continue current management. Continue current medications. There is no need for the patient to be on any psychotropic medications. The patient might benefit from going to [facility]. Social work evaluation recommended. This technical publications writer will sign off from this case. Should you have any questions, give me a call back. The patient not in any imminent danger to self or to hurt self or others. We will sign off. Thank you very much. Jeny Mallory MD
[2017-07-19 05:51] VITALS: O2SAT 96
[2017-07-19 06:48] LABS: BASO # 0.07 K/mm3 (0.0-2.0); EOS # 0.2 (0.0-0.7); EOS % 2.5 % (1.5-5.0); GRAN # 5.32 (1.4-6.5); GRAN % 74.8 % (50.0-68.0); LYMPH % 14.3 % (22.0-35.0); MEAN CELL VOLUME 78.9 fl (80.0-105.0); MEAN CORPUSCULAR HEMOGLOBIN 28.5 pg (25.0-35.0); MEAN CORPUSCULAR HGB CONC 36.1 g/dl (31.0-37.0); MONO # 0.5 (0.1-0.6); MONO % 7.4 % (1.0-6.0); RBC 4.56 10^6/uL (3.5-6.1); RED CELL DISTRIBUTION WIDTH 14.1 % (11.5-14.5); WHITE BLOOD COUNT 7.1 10^3/ul (4.5-11.0)
[2017-07-19 07:08] LABS: CALCIUM 9.8 mg/dL (8.4-10.5)
[2017-07-19] MEDS: Insulin Reg-LOW-Coverage SC SCH ×2 (08:03→12:09)
--- NOTE | 2017-07-19 08:18 | HP ---
CHIEF COMPLAINT: Chest pain. HISTORY OF PRESENT ILLNESS: Mr. Maco Prince, 66-year-old male, my private patient, with history of multiple medical problems. Came to [facility] emergency room department complaining of intermittent chest pain for 4 to 5 days. The patient described the pain as nonradiating pressure sensation. The patient notes mild shortness of breath, but denies any fever, chills, appetite change, nausea, vomiting, abdominal pain, cough, fever or chills. The patient's last catheterization was done in 2013 by lard mixer, Dr. Lamont Azul. The patient is noncompliant with medications and office visits. 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 FAMILY HISTORY: Father and mother, noncontributory. HABITS: Never smoked. No drugs. No ethanol. ALLERGIES: THE PATIENT IS ALLERGIC TO PENICILLIN. HOME MEDICATIONS: Ecotrin, vitamin D, losartan, Zemplar, Januvia. REVIEW OF SYSTEMS: The patient is seen and examined in the bedside in his room early in the morning. Waiting for catheterization. Still having chest pain off and on. No fever. No chills. No nausea, vomiting, diarrhea. No hematuria or hematochezia. No swelling of the legs. The patient has intermittent chest pain. No headache. No dysuria, but getting shortness of breath upon just walking few feet. PHYSICAL EXAMINATION: VITAL SIGNS: Temperature 97.8, pulse 56, blood pressure 135/112. HEENT: Head normocephalic, atraumatic. Eyes PERRLA. Extraocular muscles intact. Conjunctivae clear. Nose patent. NECK: Supple. No carotid bruit. No JVD or thyromegaly. CHEST: Bilaterally symmetrical. HEART: S1 and S2 positive. LUNGS: Clear to auscultation. ABDOMEN: Soft. Bowel sounds positive. No organomegaly. EXTREMITIES: No edema. No cyanosis. NEUROLOGICAL: The patient is awake and alert. Moving all 4 extremities. No focal deficits. LABORATORY DATA: White blood cells 6.8, hemoglobin 12.6, hematocrit 35.4, platelets 258. Sodium 140, potassium 4.6, BUN 32, creatinine 2.0, glucose 236. Hemoglobin A1c is 9.3. ASSESSMENT AND PLAN: Mr. Maco Prince, a 66-year-old male, with anemia, hyperchloremia, renal insufficiency. The patient has diabetic retinopathy, diabetic nephropathy, diabetic neuropathy. Hemoglobin A1c is 9.3. Seen by lard mixer, Dr. Lamont Azul and went for catheterization. According to Dr. Lamont Azul, the patient had coronary artery disease. He put stents. Started the patient on fingerstick, aspirin, losartan, Januvia, Lipitor. Gastrointestinal, deep venous thrombosis prophylaxis. Repeat labs. We will follow up. Cindy Baca MD
[2017-07-19] MEDS: Cholecalciferol 1,000 INTLU TAB PO SCH (09:12)
[2017-07-19] MEDS ORDERED: PARICALCITOL 1 MCG PO SCH (10:00)
--- NOTE | 2017-07-19 13:19 | PN ---
DATE: 07/19/2017 SUBJECTIVE: The patient is ambulating without symptoms. PHYSICAL EXAMINATION: VITAL SIGNS: Blood pressure 146/81, heart rate in the 60s. NECK: Negative JVD. LUNGS: Without rales. HEART: With S1, S2. EXTREMITIES: Without edema. LABORATORY DATA: Hemoglobin is 13. Chemistries, BUN and creatinine is 28 and 1.9. IMPRESSION: 1. Stable post percutaneous transluminal coronary angioplasty and stent, critical stenosis of circumflex artery as well as percutaneous transluminal coronary angioplasty and stent of an ostial right coronary artery. 2. Hypertension. 3. Hypercholesterolemia. 4. Renal insufficiency. 5. Diabetes mellitus. PLAN: Given these findings, the patient is stable for discharge. Follow up and instructions were given to patient. Medications have been reviewed. We will enrol the patient in cardiac rehab. Lamont Azul MD
[2017-07-19 13:21] VITALS: BP 138/62; PULSE 45; RESP 16; TEMP 97.7
== END 2017-07-19 14:10 | disposition home or self-care (01) | DRG 247 ==
LOC: ED 14:12 → ERH 15:53 → 3RSO 20:20 → 2RNO 07-18 14:40 → OBSVTOIN 07-18 16:19
PROVIDERS: ADMIT Internal Medicine; ATTEND Internal Medicine
PROC: 027135Z Dilation of Coronary Artery, Two Arteries with Two Drug-eluting Intraluminal Devices, Percutaneous Approach (ICD-10-PCS; principal; 2017-07-18)
PROC: 4A033BC Measurement of Arterial Pressure, Coronary, Percutaneous Approach (ICD-10-PCS; 2017-07-18)
PROC: 4A023N7 Measurement of Cardiac Sampling and Pressure, Left Heart, Percutaneous Approach (ICD-10-PCS; 2017-07-18)
PROC: B211YZZ Fluoroscopy of Multiple Coronary Arteries using Other Contrast (ICD-10-PCS; 2017-07-18)
PROC: B215YZZ Fluoroscopy of Left Heart using Other Contrast (ICD-10-PCS; 2017-07-18)
DX: I25.119 Atherosclerotic heart disease of native coronary artery with unspecified angina pectoris (principal); E11.21 Type 2 diabetes mellitus with diabetic nephropathy; E11.40 Type 2 diabetes mellitus with diabetic neuropathy, unspecified; I50.9 Heart failure, unspecified; E11.319 Type 2 diabetes mellitus with unspecified diabetic retinopathy without macular edema; I11.0 Hypertensive heart disease with heart failure; D64.9 Anemia, unspecified; R12 Heartburn; E66.9 Obesity, unspecified; E11.65 Type 2 diabetes mellitus with hyperglycemia; E78.00 Pure hypercholesterolemia, unspecified; N28.9 Disorder of kidney and ureter, unspecified; J44.9 Chronic obstructive pulmonary disease, unspecified; Z91.14 Patient's other noncompliance with medication regimen; Z79.82 Long term (current) use of aspirin

== ENCOUNTER 2017-09-02 13:37 | Emergency (ER) | payer MEDICARE, OTHER ==
[2017-09-02 13:51] VITALS: BMI 36.5
[2017-09-02 14:02] VITALS: BP 158/69; PULSE 54; RESP 19; TEMP 97.5
--- NOTE | 2017-09-02 14:17 | ED PDOC ---
Arrival/HPI - General Chief Complaint: Psychiatric Evaluation Time Seen by Provider: 09/02/17 14:00 Historian: Patient - History of Present Illness Narrative History of Present Illness (Text): 09/02/17 14:38 66 year old male, who presents to the emergency department complaining of feeling depressed. Patient reports his caregivers non medical was talking bad about his mother and he became angry. Patient is currently asymptomatic and denies SI or HI. No other complaints were made. 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) Hx Cataracts: Yes (Right eye) - Renal Hx Renal Failure: Yes - Endocrine/Metabolic Hx Diabetes Mellitus Type 2: Yes - Hematological/Oncological Hx Blood Disorders: No - Integumentary Hx Dermatological Disorder: Yes (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.ALL TOES L.RIGHT 3 TOES.) Other/Comment: mrsa bilateral feet - Musculoskeletal/Rheumatological Hx Arthritis: Yes Hx Falls: Yes - Gastrointestinal Hx Gastrointestinal Disorders: Yes Hx Gall Bladder Disease: Yes - Genitourinary/Gynecological Hx Genitourinary Disorders: No - Psychiatric Hx Anxiety: Yes Hx Depression: Yes Hx Substance Use: No - Surgical History 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, 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) Hx Cholecystectomy: Yes Hx Coronary Stent: Yes (x6) - Anesthesia Hx Anesthesia: Yes Hx Anesthesia Reactions: No Hx Malignant Hyperthermia: No - Suicidal Assessment Feels Threatened In Home Enviroment: No Family/Social History - Physician Review Nursing Documentation Reviewed: Yes Family/Social History: Unknown Family HX Smoking Status: Never Smoked Hx Alcohol Use: No Hx Substance Use: No Hx Substance Use Treatment: No Allergies/Home Meds Allergies/Adverse Reactions: Allergies Penicillins Allergy (Verified 07/17/17 14:24) RASH Home Medications: Home Meds Medication Instructions Recorded Confirmed Aspirin [Ecotrin] 81 mg PO DAILY 12/14/16 09/02/17 Cholecalciferol (Vitamin D3) 2,000 unit PO DAILY 07/17/17 09/02/17 [Vitamin D3] Losartan Potassium 25 mg PO DAILY 07/17/17 09/02/17 Paricalcitol [Zemplar] 1 mcg PO QOTHERDAY 07/17/17 09/02/17 SITagliptin [Januvia] 50 mg PO DAILY 07/17/17 09/02/17 Review of Systems - Physician Review All systems were reviewed & negative as marked: Yes - Review of Systems Respiratory: absent: SOB Cardiovascular: absent: Chest Pain Gastrointestinal: absent: Abdominal Pain Psychiatric: Depression. absent: Suicidal Ideation Physical Exam Vital Signs Reviewed: Yes Vital Signs Temp Pulse Resp BP Pulse Ox 09/02/17 16:21 19 99 09/02/17 14:00 97.5 F L 54 L 19 158/69 H 100 Temperature: Hypothermic Blood Pressure: Hypertensive Pulse: Bradycardic Respiratory Rate: Normal Appearance: Positive for: Well-Appearing, Non-Toxic, Comfortable Pain Distress: None Mental Status: Positive for: Alert and Oriented X 3 - Systems Exam Head: Present: Atraumatic, Normocephalic Pupils: Present: PERRL Extroacular Muscles: Present: EOMI Conjunctiva: Present: Normal Mouth: Present: Moist Mucous Membranes Respiratory/Chest: Present: Clear to Auscultation, Good Air Exchange. No: Respiratory Distress, Accessory Muscle Use, Wheezes, Rales, Retracting, Rhonchi Cardiovascular: Present: Regular Rate and Rhythm, Normal S1, S2. No: Murmurs Abdomen: No: Tenderness, Distention, Peritoneal Signs, Rebound, Guarding Lower Extremity: Present: Other (bilateral legs amputated ) Neurological: Present: GCS=15, CN II-XII Intact, Speech Normal Skin: Present: Warm, Dry, Normal Color. No: Rashes Psychiatric: Present: Alert, Oriented x 3, Normal Insight, Normal Concentration Medical Decision Making ED Course and Treatment: 09/02/17 Impression: 66 year old male with no acute findings on exam, complaining of feeling depressed. Plan: -- EKG -- Chest X-ray -- Labs -- Urinalysis -- Reassess and disposition Progress Notes: 09/02/17 14:40 EKG: Ordered, reviewed, and independently interpreted the EKG. Rate : 52 BPM Rhythm : sinus bradycardia Interpretation : No ST-segment elevations or depressions, no T-wave inversions, normal intervals. 09/02/17 14:40 Chest X-ray: Creator : Ion Lizarraga MD COMPARISON: 07/17/2017 FINDINGS: LUNGS: No active pulmonary disease. PLEURA: No significant pleural effusion identified, no pneumothorax apparent. CARDIOVASCULAR: Normal. OSSEOUS STRUCTURES: No significant abnormalities. VISUALIZED UPPER ABDOMEN: Normal. OTHER FINDINGS: None. IMPRESSION: No active disease. 09/02/17 15:35 Upon reevaluation, patient is cleared by PES, patient can be discharge. - Lab Interpretations Lab Results: 09/02/17 14:05 09/02/17 14:05 Lab Results 09/02/17 14:05: Alcohol, Quantitative < 10 09/02/17 14:05: Salicylates < 1 L, Acetaminophen < 10.0 L 09/02/17 14:05: Sodium 143, Potassium 4.7, Chloride 106, Carbon Dioxide 23, Anion Gap 20, BUN 37 H, Creatinine 2.4 H, Est GFR ( Amer) 33, Est GFR ( Non-Af Amer) 27, Random Glucose 285 H, Calcium 9.4, Total Bilirubin 0.4, AST 26 , ALT 30, Alkaline Phosphatase 92, Total Protein 7.4, Albumin 4.3, Globulin 3.0 , Albumin/Globulin Ratio 1.4 09/02/17 14:05: WBC 7.7, RBC 4.37, Hgb 12.5 L, Hct 35.1 L, MCV 80.3, MCH 28.6, MCHC 35.6, RDW 13.6, Plt Count 246, MPV 10.7, Gran % 75.4 H, Lymph % (Auto) 16.0 L, Aiken % (Auto) 5.8, Eos % (Auto) 2.2, Baso % (Auto) 0.6, Gran # 5.80, Lymph # (Auto) 1.2, Aiken # (Auto) 0.5, Eos # (Auto) 0.2, Baso # (Auto) 0.05 I have reviewed the lab results: Yes - RAD Interpretation Radiology Orders: 09/02/17 14:02 CHEST PORTABLE [RAD] Stat English Composition Teacher: Radiologist - EKG Interpretation Interpreted by ED Physician: Yes Type: 12 lead EKG - Scribe Statement The provider has reviewed the documentation as recorded by the Scribe Bebe Melendrezdua Provider Forrest Attestation: All medical record entries made by the Forrest were at my direction and personally dictated by me. I have reviewed the chart and agree that the record accurately reflects my personal performance of the history, physical exam, medical decision making, and the department course for this patient. I have also personally directed, reviewed, and agree with the discharge instructions and disposition. Disposition/Present on Arrival - Present on Arrival Any Indicators Present on Arrival: No History of DVT/PE: No History of Uncontrolled Diabetes: No Urinary Catheter: No History of Decub. Ulcer: No History Surgical Site Infection Following: None - Disposition Have Diagnosis and Disposition been Completed?: Yes Diagnosis: Chronic kidney disease Disposition: HOME/ ROUTINE Disposition Time: 15:30 Condition: GOOD Discharge Instructions (ExitCare): Chronic Kidney Disease Additional Instructions: Thank you for letting us take care of you today. The emergency medical care you received today was directed at your acute symptoms. If you were prescribed any medication, please fill it and take as directed. It may take several days for your symptoms to resolve. Return to the Emergency Department if your symptoms worsen, do not improve, or if you have any other problems. Please contact your doctor or call one of the physicians/clinics you have been referred to that are listed on the Patient Visit Information form that is included in your discharge packet. Bring any paperwork you were given at discharge with you along with any medications you are taking to your follow up visit. Our treatment cannot replace ongoing medical care by a primary care provider (PCP) outside of the emergency department. Thank you for allowing the [facility] team to be part of your care today. Followup with your primary care doctor in 5-7 days for re-evaluation and further management. Referrals: Cindy Baca MD [Primary Care Provider] - Follow up with primary Forms: [facility] ([place] Citizen)
--- NOTE | 2017-09-02 14:37 | RAD ---
HISTORY: psych eval COMPARISON: 07/17/2017 FINDINGS: LUNGS: No active pulmonary disease. PLEURA: No significant pleural effusion identified, no pneumothorax apparent. CARDIOVASCULAR: Normal. OSSEOUS STRUCTURES: No significant abnormalities. VISUALIZED UPPER ABDOMEN: Normal. OTHER FINDINGS: None. IMPRESSION: No active disease.
[2017-09-02 14:53] LABS: BASO # 0.05 K/mm3 (0.0-2.0); BASO % 0.6 % (0.0-3.0); EOS # 0.2 (0.0-0.7); EOS % 2.2 % (1.5-5.0); GRAN # 5.8 (1.4-6.5); GRAN % 75.4 % (50.0-68.0); HEMOGLOBIN 12.5 g/dL (14.0-18.0); LYMPH # 1.2 (1.2-3.4); MEAN CELL VOLUME 80.3 fl (80.0-105.0); MEAN CORPUSCULAR HEMOGLOBIN 28.6 pg (25.0-35.0); MEAN CORPUSCULAR HGB CONC 35.6 g/dl (31.0-37.0); MEAN PLATELET VOLUME 10.7 fl (7.0-11.0); MONO # 0.5 (0.1-0.6); MONO % 5.8 % (1.0-6.0); RBC 4.37 10^6/uL (3.5-6.1); RED CELL DISTRIBUTION WIDTH 13.6 % (11.5-14.5); WHITE BLOOD COUNT 7.7 10^3/ul (4.5-11.0)
[2017-09-02 15:06] LABS: ALB/GLOB RATIO 1.4 (1.1-1.8); ALBUMIN 4.3 g/dL (3.0-4.8); CALCIUM 9.4 mg/dL (8.4-10.5)
[2017-09-02 15:11] LABS: ACETAMINOPHEN < 10.0 ug/ml (10.0-20.0); SALICYLATE < 1 mg/dL (2.0-20.0)
[2017-09-02 16:21] VITALS: O2SAT 99
--- NOTE | 2017-09-03 10:09 | CARD ---
APPROVED REPORT EKG Measurement Heart [id number] <Conclusion> Sinus bradycardia with sinus arrhythmia Left axis deviation ASMI, old STTW changes c/w ischemia No change
== END 2017-09-02 16:22 | disposition home or self-care (01) ==
LOC: ED 13:37
DX: I12.9 Hypertensive chronic kidney disease with stage 1 through stage 4 chronic kidney disease, or unspecified chronic kidney disease (principal); E11.22 Type 2 diabetes mellitus with diabetic chronic kidney disease; N18.9 Chronic kidney disease, unspecified
CPT/HCPCS: 71045; 80053; 85025; 90791; 93005; 99282; G0480